=== PATIENT | female | born 1960 | race Caucasian/White ===

== ENCOUNTER 2019-11-03 23:30 | Emergency (ER) | payer BC, OTHER ==
[2019-11-04] MEDS ORDERED: Octyl 2-Cyanoacrylate 1 Tube TOP ONE (00:38)
[2019-11-04] MEDS ORDERED: Amoxicillin/Clavulanate K 875-125 MG Tab PO ONE (00:41)
--- NOTE | 2019-11-04 00:41 | EDM.PDOC ---
ED HPI GENERAL MEDICAL PROBLEM - General Chief Complaint: Bite:Animal, Insect Stated Complaint: RIGHT DOG BITE Time Seen by Provider: 11/04/19 00:36 Source of Information: Reports: Patient History Limitations: Reports: No Limitations - History of Present Illness INITIAL COMMENTS - FREE TEXT/NARRATIVE: 58-year-old female presents the emergency room after being bit by her dog was bitten in the face by her dog Duration: Hour(s): Location: Reports: Face Quality: Reports: Ache Severity: Mild Improves with: Reports: None right face Pain Score (Numeric/FACES): 7 - Related Data Allergies Allergy/AdvReac Type Severity Reaction Status Date / Time No Known Allergies Allergy Verified 11/03/19 23:49 Home Meds: Home Meds ALPRAZolam [Alprazolam] 0.5 mg PO DAILY 11/03/19 [History] busPIRone [Buspar] 10 mg PO DAILY 11/03/19 [History] Past Medical History Respiratory History: Reports: COPD Psychiatric History: Reports: Anxiety - Past Surgical History Female Surgical History: Reports: Hysterectomy Social & Family History - Family History Family Medical History: Noncontributory - Tobacco Use Smoking Status *Q: Current Every Day Smoker Years of Tobacco use: 35 Packs/Tins Daily: 1 - Recreational Drug Use Recreational Drug Use: No ED ROS GENERAL - Review of Systems Review Of Systems: Comprehensive ROS is negative, except as noted in HPI. Constitutional: Reports: No Symptoms HEENT: Reports: No Symptoms Respiratory: Reports: No Symptoms Cardiovascular: Reports: No Symptoms Endocrine: Reports: No Symptoms GI/Abdominal: Reports: No Symptoms : Reports: No Symptoms Musculoskeletal: Reports: No Symptoms Skin: Reports: No Symptoms (He has a bite along the right lower lid.) Neurological: Reports: No Symptoms Psychiatric: Reports: No Symptoms ED EXAM, ANIMAL BITE - Physical Exam Exam: See Below Exam Limited By: No Limitations General Appearance: Alert, WD/WN, No Apparent Distress Ears: Normal External Exam, Normal Canal, Normal TMs Nose: Normal Inspection Throat/Mouth: Normal Inspection, Normal Lips Head: Atraumatic, Normocephalic Neck: Normal Inspection Respiratory/Chest: No Respiratory Distress, Lungs Clear Cardiovascular: Normal Peripheral Pulses Peripheral Pulses: 0: Carotid (L) GI/Abdominal: Normal Bowel Sounds, Soft (Female) Exam: Deferred Rectal (Female) Exam: Deferred Back Exam: Normal Inspection Extremities: Normal Inspection Neurological: Alert ED ANIMAL BITE PROCEDURES - Additional/Other Procedure(s) Other (Free Text) Procedure(s): Is a 2 cm laceration for her dog. This will be Dermabond it. Patient not want sutures at this time Course - Vital Signs Last Recorded V/S: Last Vital Signs Temp 96.5 F 11/03/19 23:35 Pulse 80 11/03/19 23:35 Resp 18 11/03/19 23:35 BP 129/64 11/03/19 23:35 Pulse Ox 97 11/03/19 23:35 Departure - Departure Time of Disposition: 00:40 Disposition: Home, Self-Care 01 Condition: Good Clinical Impression: Dog bite of face - Discharge Information Referrals: PCP,None [Primary Care Provider] - Sepsis Event Note - Evaluation Sepsis Screening Result: No Definite Risk - Focused Exam Vital Signs: Vital Signs Temp Pulse Resp BP Pulse Ox 11/03/19 23:35 96.5 F 80 18 129/64 97 Date Exam was Performed: 11/04/19 Time Exam was Performed: 00:36
== END 2019-11-04 00:53 | disposition home or self-care (01) ==
LOC: MW.ED 23:30
DX: S01.85XA Open bite of other part of head, initial encounter (principal); F41.9 Anxiety disorder, unspecified; F17.210 Nicotine dependence, cigarettes, uncomplicated; Z90.710 Acquired absence of both cervix and uterus; Z79.899 Other long term (current) drug therapy; W54.0XXA Bitten by dog, initial encounter
CPT/HCPCS: 12011; 99283; A9270

== ENCOUNTER 2020-06-29 18:03 | Observation (INO) | payer BC, OTHER ==
[2020-06-29] MEDS ORDERED: Sodium Chloride 0.9% 10 ML Syringe FLUSH PRN (18:11)
[2020-06-29] MEDS ORDERED: Aspirin 81 MG Tab.Chew PO ONE (18:11)
[2020-06-29] MEDS ORDERED: Sodium Chloride 0.9% 2.5 ML Syringe FLUSH PRN ×2 (18:11)
[2020-06-29] MEDS ORDERED: Sodium Chloride 0.9% 1,000 ML IV ONE (18:11)
[2020-06-29] MEDS ORDERED: Albuterol 8 GM Inhaler INH ONE ×3 (18:12→20:35)
[2020-06-29] MEDS ORDERED: Dexamethasone 10 MG/ML SDV IVPUSH ONE (18:12)
--- NOTE | 2020-06-29 18:16 | EDM.PDOC ---
<Dante Martínez - Last Filed: 06/29/20 22:06> ED HPI GENERAL MEDICAL PROBLEM - General Chief Complaint: Respiratory Problem Stated Complaint: EMS ARRIVAL Time Seen by Provider: 06/29/20 18:10 - History of Present Illness INITIAL COMMENTS - FREE TEXT/NARRATIVE: This is a 59-year-old female with a history significant for COPD who presents ER today secondary to progressive shortness of breath that started on Monday. Patient reports that she was recently diagnosed with a urinary tract infection last week and was given a course of antibiotics which she has completed. Patient reports starting on or Monday she started having increasing shortness of breath where she was unable to perform her usual house duties. Patient reports that this evening her shortness of breath got significantly worse so she came to the ED. Patient reports that she uses an albuterol MDI at home for her COPD but has never required home oxygen or nebulizer therapies. Patient reports no history of hypertension, diabetes, liver, kidney problems in the past. Patient denies any fever. Patient reports that she has had a nonproductive cough which is not new for her and she attributes it to her COPD. Patient denies any chest pain, calf tenderness, lower extremity edema, history of PE or DVT. Patient denies any history of CHF, coronary disease, irregular heartbeats in the past. Patient denies any fevers, shakes, chills, sore throat. Patient reports mild headache. Constitutional: Patient is oriented to person, place, and time. Appears well- developed and well-nourished. No distress. HEENT: Moist mucous membranes Head: Normocephalic and atraumatic Eyes: Right eye exhibits no discharge. Left eye exhibits no discharge. No scleral icterus Neck: Normal range of motion. No tracheal deviation present. Cardiovascular: Normal rate and regular rhythm. Pulmonary: Effort normal, no respiratory distress mild expiratory wheezing improved after albuterol MDI.. Abdominal: No distention Musculoskeletal: Normal range of motion Neurologic: Alert and oriented to person, place and time. Skin: [place], warm and dry. Psychiatric: Normal mood and affect. Behavior is normal. Judgment and thought content normal. Nursing note and vital signs have been reviewed Assessment and plan: This is a 59-year-old female who presents ER today secondary to shortness of breath. Patient does have a history of COPD but is not oxygen dependent at home. Patient's pulse ox on arrival here to the ER was 83% on room air however on 3 L her pulse ox is 92 to 93% and feels much improved. Patient's labs are significant for COVID test negative x2. Patient's chest x-ray was concerning for increased bilateral interstitial markings concerning for possible atypical pneumonia versus pulmonary edema. Patient's BNP was 14 which makes pulmonary edema secondary to congestive heart failure less likely. Patient's chest x-ray also did not reveal an enlarged heart. Patient's d-dimer was elevated so a CTA was obtained which did not reveal any evidence of pulmonary embolism or discrete infiltrate. In the ED, the patient was given Decadron, albuterol MDIs, Rocephin, Zithromax to treat for pneumonia given her elevated WBC count and the abnormal chest x- ray. Patient does feel improved on her O2. Given patient's O2 requirement and her history of COPD, I feel patient will need to be admitted to the hospital for further management of her hypoxia and her COPD exacerbation with possible atypical pneumonia. Case was discussed with Dr. Arias who agrees with observation level of care with telemetry. My critical care note: The high probability of sudden, clinically significant deterioration in the patient's condition required the highest level of my preparedness to intervene urgently. The services I provided to this patient were to treat and/or prevent clinically significant deterioration. Services included the following: chart data review, reviewing nursing notes and/or old charts, documentation time, business management consultant collaboration regarding findings and treatment options, medication orders and management, direct patient care, vital sign assessments and ordering, interpreting and reviewing diagnostic studies/lab tests. Aggregate critical care time includes only time during which I was engaged inwork directly related to the patient's care, as described above, whether at the bedside or elsewhere in the Emergency Department. It did not include time spent performing other reported procedures or the services of residents, students, nurses or physician assistants. Patient with hypoxia upon presentation to the ED Critical Care Time: 35 minutes generalized Pain Score (Numeric/FACES): 2 - Related Data Allergies Allergy/AdvReac Type Severity Reaction Status Date / Time No Known Allergies Allergy Verified 06/29/20 23:04 Home Meds: Home Meds ALPRAZolam [Alprazolam] 0.5 mg PO DAILY 11/03/19 [History] busPIRone [Buspar] 10 mg PO DAILY 11/03/19 [History] Amoxicillin/Clavulanate K [Augmentin 875-125 MG] 1 tab PO Q12HR 5 Days #10 tablet 11/04/19 [Rx] Budesonide/Formoterol [Symbicort 160-4.5 MCG] 2 puff INH BID 06/29/20 [History] Departure - Departure Time of Disposition: 22:12 Disposition: Admitted As Inpatient 65 Condition: Fair Clinical Impression: Pneumonia - Discharge Information <Delmar Sal - Last Filed: 06/30/20 18:30> ED HPI GENERAL MEDICAL PROBLEM - History of Present Illness INITIAL COMMENTS - FREE TEXT/NARRATIVE: History of present illness: Patient presents with shortness of breath patient recently had trouble with a bladder infection was started on some antibiotic but she developed shortness of breath for the past 2 days that is been worsening this afternoon she denies any fever chills or cough she is not had any chest pain no leg pain or leg swelling she does have a history of COPD. Nothing seems to make her breathing better. Review of systems: As per history of present illness and below otherwise all systems reviewed and negative. Past medical history: As per history of present illness and as reviewed below otherwise noncontributory. Surgical history: As per history of present illness and as reviewed below otherwise noncontributory. Social history: No reported history of drug or alcohol abuse. Family history: As per history of present illness and as reviewed below otherwise noncontributory. Physical exam: HEENT: Atraumatic, normocephalic, pupils reactive, negative for conjunctival pal rolly or scleral icterus, mucous membranes moist, throat clear, neck supple, nontender, trachea midline. Lungs: Clear to auscultation, breath sounds equal bilaterally, chest nontender. Mild respiratory distress and tachypnea Heart: S1S2, regular, negative for clicks, rubs, or JVD. Abdomen: Soft, nondistended, nontender. Negative for masses or hepatosplenomegaly. Negative for costovertebral tenderness. Pelvis: Stable nontender. Genitourinary: Deferred. Rectal: Deferred. Extremities: Atraumatic, negative for cords or calf pain. Neurovascular unremarkable. Neuro: Awake, alert, oriented. Cranial nerves II through XII unremarkable. Cerebellum unremarkable. Motor and sensory unremarkable throughout. Exam nonfocal. Diagnostics: [] Therapeutics: [] Impression: COPD exacerbation versus pneumonia. [] Plan: Cardiac work-up chest x-ray she will get some albuterol and Decadron in the ED and be reassessed. [] Definitive disposition and diagnosis as appropriate pending reevaluation and review of above. Past Medical History Respiratory History: Reports: COPD Psychiatric History: Reports: Anxiety - Past Surgical History Female Surgical History: Reports: Hysterectomy Social & Family History - Family History Family Medical History: Noncontributory ED ROS GENERAL - Review of Systems Review Of Systems: See Below ED EXAM, GENERAL - Physical Exam Exam: See Below EKG INTERPRETATION EKG Interpretation Comments: EKG is normal sinus rhythm rate of 90 bpm normal axis nonspecific ST-T changes no paramjit ischemia read and interpreted by me Course - Vital Signs Last Recorded V/S: Last Vital Signs Temp 36.5 C 06/30/20 16:00 Pulse 72 06/30/20 16:00 Resp 20 06/30/20 16:00 BP 107/56 L 06/30/20 16:00 Pulse Ox 95 06/30/20 16:00 - Orders/Labs/Meds Orders: Active Orders 24 hr Category Date Time Status RT Post Treatment Assessment [RC] Click to Edit Care 06/29/20 20:35 Active RT Pre-Treatment Assessment [RC] Click to Edit Care 06/29/20 20:35 Active CULTURE BLOOD [BC] Stat Lab 06/29/20 18:10 Received CULTURE BLOOD [BC] Stat Lab 06/29/20 18:12 Received Sodium Chloride 0.9% [Saline Flush] Med 06/29/20 18:11 Active 10 ml FLUSH ASDIRECTED PRN Sodium Chloride 0.9% [Saline Flush] Med 06/29/20 18:11 Active 2.5 ml FLUSH ASDIRECTED PRN Sodium Chloride 0.9% [Saline Flush] Med 06/29/20 18:11 Active 2.5 ml FLUSH ASDIRECTED PRN Blood Culture x2 Reflex Set [OM.PC] Stat Oth 06/29/20 19:58 Ordered Isolation [COMM] Routine Oth 06/29/20 19:58 Active Saline Lock Insert [OM.PC] Stat Oth 06/29/20 18:11 Ordered Medication Orders Acetaminophen (Tylenol Extra Strength) 500 mg PO Q6H PRN PRN Reason: Pain (mild 1-3) Last Admin: 06/30/20 09:47 Dose: 500 mg Documented by: Admin: 06/29/20 23:52 Dose: 500 mg Documented by: JEFFREY Albuterol/Ipratropium (Duoneb 3.0-0.5 Mg/3 Ml) 3 ml NEB Q4HRRT PRN PRN Reason: Dyspnea Alprazolam (Xanax) 0.5 mg PO DAILY [facility] Last Admin: 06/30/20 08:56 Dose: 0.5 mg Documented by: LANCE Azithromycin (Zithromax) 500 mg PO BEDTIME [facility] Buspirone HCl (Buspar) 10 mg PO DAILY [facility] Last Admin: 06/30/20 08:56 Dose: 10 mg Documented by: LANCE Ceftriaxone Sodium/Dextrose 1 (gm/ Premix) 50 mls @ 100 mls/hr IV Q24H [facility] Last Admin: 06/30/20 09:03 Dose: 100 mls/hr Documented by: LANCE Methylprednisolone Sodium Succinate (Solu-Medrol) 40 mg IVPUSH Q12H [facility] Last Admin: 06/30/20 08:54 Dose: 40 mg Documented by: LANCE Morphine Sulfate (Morphine) 1 mg IVPUSH Q4H PRN PRN Reason: Pain (severe 7-10) Stop: 06/30/20 23:12 Last Admin: 06/30/20 03:14 Dose: 1 mg Documented by: JEFFREY Nicotine (Habitrol) 21 mg TRDERM DAILY [facility] Last Admin: 06/30/20 08:55 Dose: 21 mg Documented by: Admin: 06/29/20 23:52 Dose: 21 mg Documented by: JEFFREY Ondansetron HCl (Zofran) 4 mg IVPUSH Q4H PRN PRN Reason: Nausea/Vomiting Budesonide/Formoterol 160-4.5 Mcg/Puff 6 Gm Inhaler 0 each INH BID [facility] Last Admin: 06/30/20 10:44 Dose: Not Given Documented by: LANCE Sodium Chloride (Saline Flush) 10 ml FLUSH ASDIRECTED PRN PRN Reason: Keep Vein Open Last Admin: 06/29/20 18:29 Dose: 10 ml Documented by: EUNICE Sodium Chloride (Saline Flush) 2.5 ml FLUSH ASDIRECTED PRN PRN Reason: Keep Vein Open Last Admin: 06/29/20 18:28 Dose: 2.5 ml Documented by: [id number] Sodium Chloride (Saline Flush) 2.5 ml FLUSH ASDIRECTED PRN PRN Reason: Keep Vein Open Last Admin: 06/29/20 18:29 Dose: 2.5 ml Documented by: [id number] Labs: Laboratory Tests 06/29/20 06/29/20 06/29/20 Range/Units 18:10 18:10 18:10 WBC 15.61 H (4.0-11.0) K/uL RBC 4.54 (4.30-5.90) M/uL Hgb 14.7 (12.0-16.0) g/dL Hct 43.4 (36.0-46.0) % MCV 95.6 (80.0-98.0) fL MCH 32.4 H (27.0-32.0) pg MCHC 33.9 (31.0-37.0) g/dL RDW Std Deviation 47.4 (28.0-62.0) fl RDW Coeff of Malik 13 (11.0-15.0) % Plt Count 258 (150-400) K/uL MPV 9.40 (7.40-12.00) fL Neut % (Auto) 87.9 H (48.0-80.0) % Lymph % (Auto) 4.3 L (16.0-40.0) % [place] % (Auto) 3.5 (0.0-15.0) % Eos % (Auto) 4.2 (0.0-7.0) % Baso % (Auto) 0.1 (0.0-1.5) % Neut # (Auto) 13.7 H (1.4-5.7) K/uL Lymph # (Auto) 0.7 (0.6-2.4) K/uL [place] # (Auto) 0.6 (0.0-0.8) K/uL Eos # (Auto) 0.7 (0.0-0.7) K/uL Baso # (Auto) 0.0 (0.0-0.1) K/uL Nucleated RBC % 0.0 /100WBC Nucleated RBCs # 0 K/uL D-Dimer, Quantitative (0.0-0.50) mg/L FEU Lactate (0.20-2.00) mmol/L Sodium 140 (136-145) mmol/L Potassium 3.6 (3.5-5.1) mmol/L Chloride 103 (98-107) mmol/L Carbon Dioxide 23.9 (21.0-32.0) mmol/L BUN 14 (7.0-18.0) mg/dL Creatinine 1.1 H (0.6-1.0) mg/dL Est Cr Clr Drug Dosing 46.96 mL/min Estimated GFR (MDRD) 50.7 ml/min Glucose 102 (74-106) mg/dL Calcium 8.8 (8.5-10.1) mg/dL Total Bilirubin 0.9 (0.2-1.0) mg/dL AST 12 L (15-37) IU/L ALT 19 (14-63) IU/L Alkaline Phosphatase 60 (46-116) U/L Troponin I < 0.050 (0.000-0.056) ng/mL B-Natriuretic Peptide 14 (<100) PG/ML Total Protein 6.9 (6.4-8.2) g/dL Albumin 3.7 (3.4-5.0) g/dL Globulin 3.2 (2.6-4.0) g/dL Albumin/Globulin Ratio 1.2 (0.9-1.6) Urine Color Urine Appearance Urine pH (5.0-8.0) Ur Specific [place] (1.001-1.035) Urine Protein (NEGATIVE) mg/dL Urine Glucose (UA) (NEGATIVE) mg/dL Urine Ketones (NEGATIVE) mg/dL Urine Occult Blood (NEGATIVE) Urine Nitrite (NEGATIVE) Urine Bilirubin (NEGATIVE) Urine Urobilinogen (<2.0) EU/dL Ur Leukocyte Esterase (NEGATIVE) Urine RBC (0-2/HPF) Urine WBC (0-5/HPF) Ur Epithelial Cells (NONE-FEW) Urine Bacteria (NEGATIVE) Urine Mucus (NONE-MOD) COVID-19 ([facility]) (NEGATIVE) SARS Virus RNA (PCR) (NEGATIVE) 06/29/20 06/29/20 06/29/20 Range/Units 18:10 18:10 18:40 WBC (4.0-11.0) K/uL RBC (4.30-5.90) M/uL Hgb (12.0-16.0) g/dL Hct (36.0-46.0) % MCV (80.0-98.0) fL MCH (27.0-32.0) pg MCHC (31.0-37.0) g/dL RDW Std Deviation (28.0-62.0) fl RDW Coeff of Malik (11.0-15.0) % Plt Count (150-400) K/uL MPV (7.40-12.00) fL Neut % (Auto) (48.0-80.0) % Lymph % (Auto) (16.0-40.0) % [place] % (Auto) (0.0-15.0) % Eos % (Auto) (0.0-7.0) % Baso % (Auto) (0.0-1.5) % Neut # (Auto) (1.4-5.7) K/uL Lymph # (Auto) (0.6-2.4) K/uL [place] # (Auto) (0.0-0.8) K/uL Eos # (Auto) (0.0-0.7) K/uL Baso # (Auto) (0.0-0.1) K/uL Nucleated RBC % /100WBC Nucleated RBCs # K/uL D-Dimer, Quantitative 1.11 H (0.0-0.50) mg/L FEU Lactate 1.1 (0.20-2.00) mmol/L Sodium (136-145) mmol/L Potassium (3.5-5.1) mmol/L Chloride (98-107) mmol/L Carbon Dioxide (21.0-32.0) mmol/L BUN (7.0-18.0) mg/dL Creatinine (0.6-1.0) mg/dL Est Cr Clr Drug Dosing mL/min Estimated GFR (MDRD) ml/min Glucose (74-106) mg/dL Calcium (8.5-10.1) mg/dL Total Bilirubin (0.2-1.0) mg/dL AST (15-37) IU/L ALT (14-63) IU/L Alkaline Phosphatase (46-116) U/L Troponin I (0.000-0.056) ng/mL B-Natriuretic Peptide (<100) PG/ML Total Protein (6.4-8.2) g/dL Albumin (3.4-5.0) g/dL Globulin (2.6-4.0) g/dL Albumin/Globulin Ratio (0.9-1.6) Urine Color Urine Appearance Urine pH (5.0-8.0) Ur Specific [place] (1.001-1.035) Urine Protein (NEGATIVE) mg/dL Urine Glucose (UA) (NEGATIVE) mg/dL Urine Ketones (NEGATIVE) mg/dL Urine Occult Blood (NEGATIVE) Urine Nitrite (NEGATIVE) Urine Bilirubin (NEGATIVE) Urine Urobilinogen (<2.0) EU/dL Ur Leukocyte Esterase (NEGATIVE) Urine RBC (0-2/HPF) Urine WBC (0-5/HPF) Ur Epithelial Cells (NONE-FEW) Urine Bacteria (NEGATIVE) Urine Mucus (NONE-MOD) COVID-19 ([facility]) NEGATIVE (NEGATIVE) SARS Virus RNA (PCR) (NEGATIVE) 06/29/20 06/29/20 Range/Units 19:11 20:30 WBC (4.0-11.0) K/uL RBC (4.30-5.90) M/uL Hgb (12.0-16.0) g/dL Hct (36.0-46.0) % MCV (80.0-98.0) fL MCH (27.0-32.0) pg MCHC (31.0-37.0) g/dL RDW Std Deviation (28.0-62.0) fl RDW Coeff of Malik (11.0-15.0) % Plt Count (150-400) K/uL MPV (7.40-12.00) fL Neut % (Auto) (48.0-80.0) % Lymph % (Auto) (16.0-40.0) % [place] % (Auto) (0.0-15.0) % Eos % (Auto) (0.0-7.0) % Baso % (Auto) (0.0-1.5) % Neut # (Auto) (1.4-5.7) K/uL Lymph # (Auto) (0.6-2.4) K/uL [place] # (Auto) (0.0-0.8) K/uL Eos # (Auto) (0.0-0.7) K/uL Baso # (Auto) (0.0-0.1) K/uL Nucleated RBC % /100WBC Nucleated RBCs # K/uL D-Dimer, Quantitative (0.0-0.50) mg/L FEU Lactate (0.20-2.00) mmol/L Sodium (136-145) mmol/L Potassium (3.5-5.1) mmol/L Chloride (98-107) mmol/L Carbon Dioxide (21.0-32.0) mmol/L BUN (7.0-18.0) mg/dL Creatinine (0.6-1.0) mg/dL Est Cr Clr Drug Dosing mL/min Estimated GFR (MDRD) ml/min Glucose (74-106) mg/dL Calcium (8.5-10.1) mg/dL Total Bilirubin (0.2-1.0) mg/dL AST (15-37) IU/L ALT (14-63) IU/L Alkaline Phosphatase (46-116) U/L Troponin I (0.000-0.056) ng/mL B-Natriuretic Peptide (<100) PG/ML Total Protein (6.4-8.2) g/dL Albumin (3.4-5.0) g/dL Globulin (2.6-4.0) g/dL Albumin/Globulin Ratio (0.9-1.6) Urine Color YELLOW Urine Appearance CLEAR Urine pH 5.0 (5.0-8.0) Ur Specific [place] 1.020 (1.001-1.035) Urine Protein NEGATIVE (NEGATIVE) mg/dL Urine Glucose (UA) NEGATIVE (NEGATIVE) mg/dL Urine Ketones >=80 (NEGATIVE) mg/dL Urine Occult Blood SMALL H (NEGATIVE) Urine Nitrite NEGATIVE (NEGATIVE) Urine Bilirubin NEGATIVE (NEGATIVE) Urine Urobilinogen 0.2 (<2.0) EU/dL Ur Leukocyte Esterase SMALL H (NEGATIVE) Urine RBC NONE SEEN (0-2/HPF) Urine WBC 1-3 (0-5/HPF) Ur Epithelial Cells FEW (NONE-FEW) Urine Bacteria FEW (NEGATIVE) Urine Mucus LIGHT (NONE-MOD) COVID-19 ([facility]) (NEGATIVE) SARS Virus RNA (PCR) NEGATIVE (NEGATIVE) Meds: Medications Generic Name Dose Route Start Last Admin Trade Name Freq PRN Reason Stop Dose Admin Acetaminophen 500 mg 06/29/20 23:43 06/30/20 09:47 Tylenol Extra Strength PO 500 mg Q6H PRN Administration Pain (mild 1-3) Albuterol/Ipratropium 3 ml 06/29/20 23:16 Duoneb 3.0-0.5 Mg/3 Ml NEB Q4HRRT PRN Dyspnea Alprazolam 0.5 mg 06/30/20 09:00 06/30/20 08:56 Xanax PO 0.5 mg DAILY SARAH Administration Azithromycin 500 mg 06/30/20 21:00 Zithromax PO BEDTIME SARAH Buspirone HCl 10 mg 06/30/20 09:00 06/30/20 08:56 Buspar PO 10 mg DAILY SARAH Administration Ceftriaxone Sodium/Dextrose 1 50 mls @ 100 mls/hr 06/30/20 09:00 06/30/20 09:03 gm/ Premix IV 100 mls/hr Q24H SARAH Administration Methylprednisolone Sodium Succinate 40 mg 06/30/20 08:00 06/30/20 08:54 Solu-Medrol IVPUSH 40 mg Q12H SARAH Administration Morphine Sulfate 1 mg 06/29/20 23:09 06/30/20 03:14 Morphine IVPUSH 06/30/20 23:12 1 mg Q4H PRN Administration Pain (severe 7-10) Nicotine 21 mg 06/29/20 23:15 06/30/20 08:55 Habitrol TRDERM 21 mg DAILY SARAH Administration Ondansetron HCl 4 mg 06/29/20 23:09 Zofran IVPUSH Q4H PRN Nausea/Vomiting Budesonide/ 0 each 06/30/20 09:00 06/30/20 10:44 Formoterol 160-4.5 INH Not Given Mcg/Puff 6 Gm BID SARAH Inhaler Sodium Chloride 10 ml 06/29/20 18:11 06/29/20 18:29 Saline Flush FLUSH 10 ml ASDIRECTED PRN Administration Keep Vein Open Sodium Chloride 2.5 ml 06/29/20 18:11 06/29/20 18:28 Saline Flush FLUSH 2.5 ml ASDIRECTED PRN Administration Keep Vein Open Sodium Chloride 2.5 ml 06/29/20 18:11 06/29/20 18:29 Saline Flush FLUSH 2.5 ml ASDIRECTED PRN Administration Keep Vein Open Discontinued Medications Generic Name Dose Route Start Last Admin Trade Name Albert PRN Reason Stop Dose Admin Albuterol 4 gm 06/29/20 18:12 06/29/20 18:37 Ventolin Hfa INH 06/29/20 18:13 Not Given ONETIME ONE Albuterol 18 gm 06/29/20 18:31 06/29/20 18:36 Ventolin Hfa INH 06/29/20 18:32 18 g ONETIME ONE Administration Albuterol Confirm 06/29/20 18:35 06/29/20 18:39 Ventolin Hfa Administered 06/29/20 18:36 Not Given Dose 18 gm .ROUTE .STK-MED ONE Albuterol 2 gm 06/29/20 20:35 06/29/20 20:39 Ventolin Hfa INH 06/29/20 20:36 2 inh ONETIME ONE Administration Albuterol/Ipratropium 3 ml 06/29/20 19:57 06/29/20 20:39 Duoneb 3.0-0.5 Mg/3 Ml NEB 06/29/20 19:58 Not Given ONETIME ONE Aspirin 324 mg 06/29/20 18:11 06/29/20 18:28 Aspirin PO 06/29/20 18:12 324 mg ONETIME ONE Administration Dexamethasone 10 mg 06/29/20 18:12 06/29/20 18:28 Dexamethasone IVPUSH 06/29/20 18:13 10 mg ONETIME ONE Administration Furosemide 20 mg 06/29/20 23:26 06/29/20 23:52 Lasix IVPUSH 06/29/20 23:27 20 mg ONETIME ONE Administration Furosemide 20 mg 06/30/20 10:09 06/30/20 11:02 Lasix IVPUSH 06/30/20 10:10 20 mg ONETIME ONE Administration Sodium Chloride 1,000 mls @ 999 mls/hr 06/29/20 18:11 06/29/20 18:28 Normal Saline IV 06/29/20 19:11 999 mls/hr BOLUS ONE Administration Ceftriaxone Sodium/Dextrose 1 50 mls @ 100 mls/hr 06/29/20 19:57 06/29/20 20:37 gm/ Premix IV 06/29/20 20:26 100 mls/hr ONETIME ONE Administration Azithromycin 500 mg/ Sodium 250 mls @ 250 mls/hr 06/29/20 20:15 06/29/20 21:14 Chloride IV 250 mls/hr ONETIME SARAH Administration Ceftriaxone Sodium 1 gm/ 50 mls @ 100 mls/hr 06/30/20 09:00 Sodium Chloride IV Q24H SARAH Iopamidol 50 ml 06/29/20 20:39 06/29/20 20:40 Isovue-370 (76%) IV 06/29/20 20:40 50 ml ONETIME STA Administration Departure - Discharge Information *PRESCRIPTION DRUG MONITORING PROGRAM REVIEWED*: Not Applicable *COPY OF PRESCRIPTION DRUG MONITORING REPORT IN PATIENT SOPHIA: Not Applicable - My Orders Last 24 Hours: My Active Orders 06/29/20 18:11 Sodium Chloride 0.9% [Saline Flush] 10 ml FLUSH ASDIRECTED PRN Sodium Chloride 0.9% [Saline Flush] 2.5 ml FLUSH ASDIRECTED PRN Sodium Chloride 0.9% [Saline Flush] 2.5 ml FLUSH ASDIRECTED PRN Saline Lock Insert [OM.PC] Stat - Assessment/Plan Last 24 Hours: My Active Orders 06/29/20 18:11 Sodium Chloride 0.9% [Saline Flush] 10 ml FLUSH ASDIRECTED PRN Sodium Chloride 0.9% [Saline Flush] 2.5 ml FLUSH ASDIRECTED PRN Sodium Chloride 0.9% [Saline Flush] 2.5 ml FLUSH ASDIRECTED PRN Saline Lock Insert [OM.PC] Stat
[2020-06-29] MEDS ORDERED: Albuterol HFA 18 Gm Inhaler ONE (18:35)
--- NOTE | 2020-06-29 18:45 | CR ---
Chest: Portable view of the chest was obtained. Comparison: Prior chest x-ray of 09/04/12. Heart size and mediastinum are normal. Danette B lines are noted. Central lung markings are slightly increased. Impression: 1. Findings suspicious for mild pulmonary vascular congestion with slight interstitial edema. Please correlate if patient has any symptoms of acute cardiac event as an etiology for cardiac decompensation as heart is not enlarged. 2. No acute parenchymal change is otherwise seen within the chest. Diagnostic code #3 This report was dictated in MDT
[2020-06-29 19:09] LABS: BLOOD UREA NITROGEN,BUN 14 mg/dL (7.0-18.0); CARBON DIOXIDE,CO2 23.9 mmol/L (21.0-32.0); CHLORIDE,CL 103 mmol/L (98-107); GLUCOSE RANDOM 102 mg/dL (74-106); POTASSIUM,K 3.6 mmol/L (3.5-5.1); SODIUM,NA 140 mmol/L (136-145)
[2020-06-29] MEDS ORDERED: Albuterol/Ipratropium 3.0-0.5 MG/3 ML Neb Soln NEB ONE (19:57)
[2020-06-29] MEDS ORDERED: cefTRIAXone 1 GM in Premix Bag 1 BAG IV ONE (19:57)
[2020-06-29] MEDS ORDERED: Azithromycin 500 MG in Sodium Chloride 0.9% 250 ML IV SCH (20:15)
[2020-06-29] MEDS ORDERED: Iopamidol 755 MG/ML 50 ML Bottle IV STA (20:39)
--- NOTE | 2020-06-29 21:21 | CT ---
INDICATION: Shortness of breath, hypoxia TECHNIQUE: CT chest pulmonary PE protocol acquired with 50 cc Isovue 370 IV contrast. COMPARISON: None FINDINGS: Cardiovascular structures: Normal vascular enhancement of the pulmonary arteries, no sign of pulmonary embolism. Heart size is normal. No sign of aneurysm in the thoracic aorta. Mediastinum and ysabel: 1.5 cm subcarinal adenopathy. 1.8 cm right hilar lymph. 1.3 cm left hilar lymph node. Lungs: Thickening of the interlobular septa. Faint, diffuse ground-glass opacities in lungs. Linear atelectasis or scarring in the right middle lobe. Pleura and pericardium: No effusions. Chest wall and axilla: No mass or adenopathy. Upper abdomen: Unremarkable. Bones: No significant findings. IMPRESSION: No pulmonary embolism or pneumonia. Thickening of the interlobular septa with faint ground-glass opacities in the lungs concerning for pulmonary edema. No effusion. Subcarinal and bilateral hilar adenopathy of unknown etiology. Please note that all CT scans at this facility use dose modulation, iterative reconstruction, and/or weight-based dosing when appropriate to reduce radiation dose to as low as reasonably achievable. Dictated by Kelly Colin MD @ Jun 29 2020 9:19PM Signed by Dr. Kelly Colin @ Jun 29 2020 9:19PM
[2020-06-29] MEDS ORDERED: Morphine 2 MG/ML SYRINGE IVPUSH PRN (23:09)
[2020-06-29] MEDS ORDERED: Ondansetron 4 MG/2 ML SDV IVPUSH PRN (23:09)
[2020-06-29] MEDS ORDERED: Albuterol/Ipratropium 3.0-0.5 MG/3 ML Neb Soln NEB PRN (23:16)
--- NOTE | 2020-06-29 23:18 | PCM.HP.2 ---
H&P History of Present Illness - General Date of Service: 06/29/20 Admit Problem/Dx: Admission Diagnosis/Problem Admission Diagnosis/Problem COPD with acute lower respiratory infection - History of Present Illness Initial Comments - Free Text/Narative: This is a 59-year-old female with a history significant for COPD who presents ER today secondary to progressive shortness of breath that started on Monday. Joanie ent reports starting on she started having increasing shortness of breath and was was unable to perform her ADLS. Today her symptoms got worse so she came to the ED. Patient reports that she uses an albuterol MDI at home for her COPD but has never required home oxygen or nebulizer therapies. Patient was recently treated for UTI with oral antibiotics. Patient reports no history of hypertension, diabetes, liver, kidney problems in the past. Patient denies any fever. Patient reports that she has had a nonproductive cough which is chronic in nature.Patient denies any chest pain, calf tenderness, lower extremity edema, history of PE or DVT. Patient denies any history of CHF, nadege nary disease, irregular heartbeats in the past. Patient denies any fevers, shakes, chills, sore throat. Patient's pulse ox on arrival was 83% on room air , started on 3 L which improved her pulse oxy to 93%. Patient's labs are significant for COVID test negative x2. Patient's chest x-ray was concerning for increased bilateral interstitial markings concerning for possible atypical pneumonia versus pulmonary edema. Patient's BNP was 14 which makes pulmonary edema secondary to congestive heart failure less likely. Patient's chest x-ray also did not reveal an enlarged heart. Patient's d-dimer was elevated so a CTA was obtained which did not reveal any evidence of pulmonary embolism or discrete infiltrate. In the ED, the patient was given Decadron, albuterol MDIs, Rocephin, Zithromax t o treat for pneumonia given her elevated WBC count and the abnormal chest x-ray. Patient does feel improved on her O2. Patient was admitted to the hospital for further management of her hypoxia and her COPD exacerbation with possible atypical pneumonia. generalized Pain Score (Numeric/FACES): 2 - Related Data Allergies/Adverse Reactions: Allergies Allergy/AdvReac Type Severity Reaction Status Date / Time No Known Allergies Allergy Verified 06/29/20 23:04 Home Medications: Home Meds ALPRAZolam [Alprazolam] 0.5 mg PO DAILY 11/03/19 [History] busPIRone [Buspar] 10 mg PO DAILY 11/03/19 [History] Amoxicillin/Clavulanate K [Augmentin 875-125 MG] 1 tab PO Q12HR 5 Days #10 tablet 11/04/19 [Rx] Budesonide/Formoterol [Symbicort 160-4.5 MCG] 2 puff INH BID 06/29/20 [History] Past Medical History Respiratory History: Reports: COPD Genitourinary History: Reports: UTI, Recurrent Psychiatric History: Reports: Anxiety Dermatologic History: Reports: Eczema - Past Surgical History Female Surgical History: Reports: Hysterectomy Social & Family History - Family History Family Medical History: Noncontributory - Tobacco Use Smoking Status *Q: Current Every Day Smoker Years of Tobacco use: 40 Packs/Tins Daily: 1 - Caffeine Use Caffeine Use: Reports: Coffee, Soda - Recreational Drug Use Recreational Drug Use: No H&P Review of Systems - Review of Systems: Review Of Systems: See Below General: Denies: Fever, Chills, Malaise, Weakness Pulmonary: Reports: Shortness of Breath, Cough. Denies: Wheezing, Pleuritic Chest Pain, Sputum, Hemoptysis Cardiovascular: Reports: Dyspnea on Exertion. Denies: Chest Pain, Palpitations, Orthopnea, Lightheadedness, Syncope Gastrointestinal: Denies: Abdominal Pain, Anorexia, Black Stool Genitourinary: Denies: Dysuria, Frequency Musculoskeletal: Denies: Neck Pain, Shoulder Pain, Arm Pain Skin: Denies: Cyanosis, Jaundice, Mottled, Pallor Psychiatric: Denies: Confusion, Depression, Mood Lability Neurological: Denies: Confusion, Dizziness, Headache Hematologic/Lymphatic: Denies: Anemia, Easy Bleeding, Easy Bruising Exam - Exam Exam: See Below - Vital Signs Vital Signs: Last Vital Signs Temp 36.2 C 06/29/20 22:54 Pulse 79 06/29/20 22:54 Resp 20 06/29/20 22:54 BP 120/69 06/29/20 22:54 Pulse Ox 95 06/29/20 22:54 Weight: 52.617 kg - Exam Quality Assessment: Supplemental Oxygen General: Alert, Oriented Neck: Supple Lungs: Decreased Breath Sounds, Rhonchi Cardiovascular: Regular Rate, Regular Rhythm, Normal S1, Normal S2 GI/Abdominal Exam: Normal Bowel Sounds, Soft, Non-Tender - Patient Data Lab Results Last 24 hrs: Laboratory Results - last 24 hr 06/29/20 06/29/20 06/29/20 Range/Units 18:10 18:10 18:10 WBC 15.61 H (4.0-11.0) K/uL RBC 4.54 (4.30-5.90) M/uL Hgb 14.7 (12.0-16.0) g/dL Hct 43.4 (36.0-46.0) % MCV 95.6 (80.0-98.0) fL MCH 32.4 H (27.0-32.0) pg MCHC 33.9 (31.0-37.0) g/dL RDW Std Deviation 47.4 (28.0-62.0) fl RDW Coeff of Malik 13 (11.0-15.0) % Plt Count 258 (150-400) K/uL MPV 9.40 (7.40-12.00) fL Neut % (Auto) 87.9 H (48.0-80.0) % Lymph % (Auto) 4.3 L (16.0-40.0) % [place] % (Auto) 3.5 (0.0-15.0) % Eos % (Auto) 4.2 (0.0-7.0) % Baso % (Auto) 0.1 (0.0-1.5) % Neut # (Auto) 13.7 H (1.4-5.7) K/uL Lymph # (Auto) 0.7 (0.6-2.4) K/uL [place] # (Auto) 0.6 (0.0-0.8) K/uL Eos # (Auto) 0.7 (0.0-0.7) K/uL Baso # (Auto) 0.0 (0.0-0.1) K/uL Nucleated RBC % 0.0 /100WBC Nucleated RBCs # 0 K/uL D-Dimer, Quantitative (0.0-0.50) mg/L FEU Lactate (0.20-2.00) mmol/L Sodium 140 (136-145) mmol/L Potassium 3.6 (3.5-5.1) mmol/L Chloride 103 (98-107) mmol/L Carbon Dioxide 23.9 (21.0-32.0) mmol/L BUN 14 (7.0-18.0) mg/dL Creatinine 1.1 H (0.6-1.0) mg/dL Est Cr Clr Drug Dosing 46.96 mL/min Estimated GFR (MDRD) 50.7 ml/min Glucose 102 (74-106) mg/dL Calcium 8.8 (8.5-10.1) mg/dL Total Bilirubin 0.9 (0.2-1.0) mg/dL AST 12 L (15-37) IU/L ALT 19 (14-63) IU/L Alkaline Phosphatase 60 (46-116) U/L Troponin I < 0.050 (0.000-0.056) ng/mL B-Natriuretic Peptide 14 (<100) PG/ML Total Protein 6.9 (6.4-8.2) g/dL Albumin 3.7 (3.4-5.0) g/dL Globulin 3.2 (2.6-4.0) g/dL Albumin/Globulin Ratio 1.2 (0.9-1.6) Urine Color Urine Appearance Urine pH (5.0-8.0) Ur Specific [place] (1.001-1.035) Urine Protein (NEGATIVE) mg/dL Urine Glucose (UA) (NEGATIVE) mg/dL Urine Ketones (NEGATIVE) mg/dL Urine Occult Blood (NEGATIVE) Urine Nitrite (NEGATIVE) Urine Bilirubin (NEGATIVE) Urine Urobilinogen (<2.0) EU/dL Ur Leukocyte Esterase (NEGATIVE) Urine RBC (0-2/HPF) Urine WBC (0-5/HPF) Ur Epithelial Cells (NONE-FEW) Urine Bacteria (NEGATIVE) Urine Mucus (NONE-MOD) COVID-19 ([facility]) (NEGATIVE) SARS Virus RNA (PCR) (NEGATIVE) 06/29/20 06/29/20 06/29/20 Range/Units 18:10 18:10 18:40 WBC (4.0-11.0) K/uL RBC (4.30-5.90) M/uL Hgb (12.0-16.0) g/dL Hct (36.0-46.0) % MCV (80.0-98.0) fL MCH (27.0-32.0) pg MCHC (31.0-37.0) g/dL RDW Std Deviation (28.0-62.0) fl RDW Coeff of Malik (11.0-15.0) % Plt Count (150-400) K/uL MPV (7.40-12.00) fL Neut % (Auto) (48.0-80.0) % Lymph % (Auto) (16.0-40.0) % [place] % (Auto) (0.0-15.0) % Eos % (Auto) (0.0-7.0) % Baso % (Auto) (0.0-1.5) % Neut # (Auto) (1.4-5.7) K/uL Lymph # (Auto) (0.6-2.4) K/uL [place] # (Auto) (0.0-0.8) K/uL Eos # (Auto) (0.0-0.7) K/uL Baso # (Auto) (0.0-0.1) K/uL Nucleated RBC % /100WBC Nucleated RBCs # K/uL D-Dimer, Quantitative 1.11 H (0.0-0.50) mg/L FEU Lactate 1.1 (0.20-2.00) mmol/L Sodium (136-145) mmol/L Potassium (3.5-5.1) mmol/L Chloride (98-107) mmol/L Carbon Dioxide (21.0-32.0) mmol/L BUN (7.0-18.0) mg/dL Creatinine (0.6-1.0) mg/dL Est Cr Clr Drug Dosing mL/min Estimated GFR (MDRD) ml/min Glucose (74-106) mg/dL Calcium (8.5-10.1) mg/dL Total Bilirubin (0.2-1.0) mg/dL AST (15-37) IU/L ALT (14-63) IU/L Alkaline Phosphatase (46-116) U/L Troponin I (0.000-0.056) ng/mL B-Natriuretic Peptide (<100) PG/ML Total Protein (6.4-8.2) g/dL Albumin (3.4-5.0) g/dL Globulin (2.6-4.0) g/dL Albumin/Globulin Ratio (0.9-1.6) Urine Color Urine Appearance Urine pH (5.0-8.0) Ur Specific [place] (1.001-1.035) Urine Protein (NEGATIVE) mg/dL Urine Glucose (UA) (NEGATIVE) mg/dL Urine Ketones (NEGATIVE) mg/dL Urine Occult Blood (NEGATIVE) Urine Nitrite (NEGATIVE) Urine Bilirubin (NEGATIVE) Urine Urobilinogen (<2.0) EU/dL Ur Leukocyte Esterase (NEGATIVE) Urine RBC (0-2/HPF) Urine WBC (0-5/HPF) Ur Epithelial Cells (NONE-FEW) Urine Bacteria (NEGATIVE) Urine Mucus (NONE-MOD) COVID-19 ([place]) NEGATIVE (NEGATIVE) SARS Virus RNA (PCR) (NEGATIVE) 06/29/20 06/29/20 Range/Units 19:11 20:30 WBC (4.0-11.0) K/uL RBC (4.30-5.90) M/uL Hgb (12.0-16.0) g/dL Hct (36.0-46.0) % MCV (80.0-98.0) fL MCH (27.0-32.0) pg MCHC (31.0-37.0) g/dL RDW Std Deviation (28.0-62.0) fl RDW Coeff of Malik (11.0-15.0) % Plt Count (150-400) K/uL MPV (7.40-12.00) fL Neut % (Auto) (48.0-80.0) % Lymph % (Auto) (16.0-40.0) % [place] % (Auto) (0.0-15.0) % Eos % (Auto) (0.0-7.0) % Baso % (Auto) (0.0-1.5) % Neut # (Auto) (1.4-5.7) K/uL Lymph # (Auto) (0.6-2.4) K/uL [place] # (Auto) (0.0-0.8) K/uL Eos # (Auto) (0.0-0.7) K/uL Baso # (Auto) (0.0-0.1) K/uL Nucleated RBC % /100WBC Nucleated RBCs # K/uL D-Dimer, Quantitative (0.0-0.50) mg/L FEU Lactate (0.20-2.00) mmol/L Sodium (136-145) mmol/L Potassium (3.5-5.1) mmol/L Chloride (98-107) mmol/L Carbon Dioxide (21.0-32.0) mmol/L BUN (7.0-18.0) mg/dL Creatinine (0.6-1.0) mg/dL Est Cr Clr Drug Dosing mL/min Estimated GFR (MDRD) ml/min Glucose (74-106) mg/dL Calcium (8.5-10.1) mg/dL Total Bilirubin (0.2-1.0) mg/dL AST (15-37) IU/L ALT (14-63) IU/L Alkaline Phosphatase (46-116) U/L Troponin I (0.000-0.056) ng/mL B-Natriuretic Peptide (<100) PG/ML Total Protein (6.4-8.2) g/dL Albumin (3.4-5.0) g/dL Globulin (2.6-4.0) g/dL Albumin/Globulin Ratio (0.9-1.6) Urine Color YELLOW Urine Appearance CLEAR Urine pH 5.0 (5.0-8.0) Ur Specific [place] 1.020 (1.001-1.035) Urine Protein NEGATIVE (NEGATIVE) mg/dL Urine Glucose (UA) NEGATIVE (NEGATIVE) mg/dL Urine Ketones >=80 (NEGATIVE) mg/dL Urine Occult Blood SMALL H (NEGATIVE) Urine Nitrite NEGATIVE (NEGATIVE) Urine Bilirubin NEGATIVE (NEGATIVE) Urine Urobilinogen 0.2 (<2.0) EU/dL Ur Leukocyte Esterase SMALL H (NEGATIVE) Urine RBC NONE SEEN (0-2/HPF) Urine WBC 1-3 (0-5/HPF) Ur Epithelial Cells FEW (NONE-FEW) Urine Bacteria FEW (NEGATIVE) Urine Mucus LIGHT (NONE-MOD) COVID-19 ([place]) (NEGATIVE) SARS Virus RNA (PCR) NEGATIVE (NEGATIVE) Result Diagrams: 06/29/20 18:10 06/29/20 18:10 Walter Results Last 24 hrs: Microbiology 06/29/20 20:30 Influenza Type A Antigen Screen - Final Nasopharyngeal Swab NEGATIVE INFLUENZA A VIRUS AG REFERENCE RANGE: NEGATIVE Influenza Type B Antigen Screen - Final NEGATIVE INFLUENZA B VIRUS AG REFERENCE RANGE: NEGATIVE Sepsis Event Note - Evaluation Sepsis Screening Result: No Definite Risk - Focused Exam Vital Signs: Vital Signs Temp Pulse Resp BP Pulse Ox Pulse Ox Pulse Ox 06/29/20 22:54 36.2 C 79 20 120/69 95 06/29/20 21:10 36.6 C 78 20 105/61 98 06/29/20 19:15 36.6 C 81 20 115/56 L 98 06/29/20 18:49 90 L 06/29/20 18:11 84 L 06/29/20 18:03 36.3 C 88 24 H 119/63 84 L - Problem List (1) Acute hypoxemic respiratory failure SNOMED Code(s): 971365824 ICD Code: J96.01 - ACUTE RESPIRATORY FAILURE WITH HYPOXIA Status: Acute Current Visit: Yes Problem List Initiated/Reviewed/Updated: Yes Orders Last 24hrs: Active Orders 24 hr Category Date Time Status Patient Status [ADT] Routine ADT 06/29/20 21:59 Active Ambulate [RC] ASDIRECTED Care 06/29/20 23:09 Ordered Antiembolic Devices [RC] PER UNIT ROUTINE Care 06/29/20 23:11 Ordered Oxygen Therapy [RC] ASDIRECTED Care 06/29/20 18:11 Active Oxygen Therapy [RC] PRN Care 06/29/20 23:10 Ordered Pulse Oximetry [RC] CONTINUOUS Care 06/29/20 23:11 Ordered RT Aerosol Therapy [RC] ASDIRECTED Care 06/29/20 23:16 Ordered RT Post Treatment Assessment [RC] Click to Edit Care 06/29/20 18:32 Active RT Post Treatment Assessment [RC] Click to Edit Care 06/29/20 20:35 Active RT Pre-Treatment Assessment [RC] Click to Edit Care 06/29/20 18:32 Active RT Pre-Treatment Assessment [RC] Click to Edit Care 06/29/20 20:35 Active VTE/DVT Education [RC] PER UNIT ROUTINE Care 06/29/20 23:10 Ordered Vital Signs [RC] Q4H Care 06/29/20 23:10 Ordered Heart Healthy Diet [DIET] Diet 06/29/20 Breakfast Ordered CULTURE BLOOD [BC] Stat Lab 06/29/20 18:10 Received CULTURE BLOOD [BC] Stat Lab 06/29/20 18:12 Received Albuterol/Ipratropium [DuoNeb 3.0-0.5 MG/3 ML] Med 06/29/20 23:16 Ordered 3 ml NEB Q4HRRT PRN Azithromycin [Zithromax] 500 mg Med 06/29/20 20:15 Active Sodium Chloride 0.9% [Normal Saline (AdvBag)] 250 ml IV ONETIME Morphine Med 06/29/20 23:09 Ordered 1 mg IVPUSH Q4H PRN Nicotine [Habitrol] Med 06/29/20 23:15 Ordered 21 mg TRDERM DAILY Ondansetron [Zofran] Med 06/29/20 23:09 Ordered 4 mg IVPUSH Q4H PRN Sodium Chloride 0.9% [Saline Flush] Med 06/29/20 18:11 Active 10 ml FLUSH ASDIRECTED PRN Sodium Chloride 0.9% [Saline Flush] Med 06/29/20 18:11 Active 2.5 ml FLUSH ASDIRECTED PRN Sodium Chloride 0.9% [Saline Flush] Med 06/29/20 18:11 Active 2.5 ml FLUSH ASDIRECTED PRN methylPREDNISolone Sod Succ [Solu-MEDROL] Med 06/30/20 08:00 Ordered 40 mg IVPUSH Q12H Blood Culture x2 Reflex Set [OM.PC] Stat Oth 06/29/20 19:58 Ordered Isolation [COMM] Routine Oth 06/29/20 19:58 Active Saline Lock Insert [OM.PC] Stat Oth 06/29/20 18:11 Ordered Sequential Compression Device [OM.PC] Per Unit Routine Oth 06/29/20 23:11 Ordered Medication Orders Albuterol/Ipratropium (Duoneb 3.0-0.5 Mg/3 Ml) 3 ml NEB Q4HRRT PRN PRN Reason: Dyspnea Azithromycin 500 mg/ Sodium (Chloride) 250 mls @ 250 mls/hr IV ONETIME SARAH Last Admin: 06/29/20 21:14 Dose: 250 mls/hr Documented by: JORDY Methylprednisolone Sodium Succinate (Solu-Medrol) 40 mg IVPUSH Q12H SARAH Morphine Sulfate (Morphine) 1 mg IVPUSH Q4H PRN PRN Reason: Pain (severe 7-10) Stop: 06/30/20 23:12 Nicotine (Habitrol) 21 mg TRDERM DAILY SARAH Ondansetron HCl (Zofran) 4 mg IVPUSH Q4H PRN PRN Reason: Nausea/Vomiting Sodium Chloride (Saline Flush) 10 ml FLUSH ASDIRECTED PRN PRN Reason: Keep Vein Open Last Admin: 06/29/20 18:29 Dose: 10 ml Documented by: EUNICE Sodium Chloride (Saline Flush) 2.5 ml FLUSH ASDIRECTED PRN PRN Reason: Keep Vein Open Last Admin: 06/29/20 18:28 Dose: 2.5 ml Documented by: EUNICE Sodium Chloride (Saline Flush) 2.5 ml FLUSH ASDIRECTED PRN PRN Reason: Keep Vein Open Last Admin: 06/29/20 18:29 Dose: 2.5 ml Documented by: EUNICE Assessment/Plan Comment:: 59 y/o F admitted for Acute hypoxic respiratory failure due to CAP vs COPD Leucocytosis noted Received IV antibiotics in ER, cont Antibiotics f/u on cultures start IV solumedrol 40mg Q12 DuoNeb as needs for SOB Oxygenation via nasal cannula Trial od lasix 20 mg once SCD for dvt ppx Monitor and replete electrolytes as needed Tylenol for pain Nicotine patch
[2020-06-29] MEDS ORDERED: Furosemide 20 MG/2 ML VIAL IVPUSH ONE (23:26)
[2020-06-29] MEDS: Acetaminophen 500 MG Tab PO PRN (23:52)
[2020-06-29] MEDS: Nicotine 21 MG/24 Hr Patch TRDERM SCH (23:52)
[2020-06-30 06:24] LABS: CARBON DIOXIDE,CO2 23.3 mmol/L (21.0-32.0); POTASSIUM,K 3.6 mmol/L (3.5-5.1)
[2020-06-30] MEDS: methylPREDNISolone Sodium Succinate 40 MG/1 ML SDV IVPUSH SCH ×2 (08:54→21:03)
[2020-06-30] MEDS: Nicotine 21 MG/24 Hr Patch TRDERM SCH (08:55)
[2020-06-30] MEDS: ALPRAZolam 0.5 MG Tab PO SCH (08:56)
[2020-06-30] MEDS: busPIRone 5 MG Tab PO SCH (08:56)
[2020-06-30] MEDS ORDERED: cefTRIAXone 1 GM in Sodium Chloride 0.9% 50 ML IV SCH (09:00)
[2020-06-30] MEDS: cefTRIAXone 1 GM in Premix Bag 1 BAG IV SCH (09:03)
[2020-06-30] MEDS: Acetaminophen 500 MG Tab PO PRN (09:47)
[2020-06-30] MEDS ORDERED: Furosemide 20 MG/2 ML VIAL IVPUSH ONE (10:09)
[2020-06-30 10:28] LABS: HEMOGLOBIN A1C 5.4 % (4.5-6.2)
[2020-06-30] MEDS: Budesonide/Formoterol 160-4.5 MCG/Puff 6 GM Inhaler INH SCH ×2 (10:44→20:14)
--- NOTE | 2020-06-30 12:13 | PCM.PN ---
<Carl Merrill - Last Filed: 06/30/20 12:13> - General Info Date of Service: 06/30/20 Subjective Update: Bedside: mentions feeling the SOB is slightly improving; mentions the cough feels "looser" but has yet to have any significant productive sputum Functional Status: Reports: Pain Controlled - Review of Systems General: Reports: No Symptoms HEENT: Reports: No Symptoms Pulmonary: Reports: Cough. Denies: Shortness of Breath, Sputum, Wheezing Cardiovascular: Reports: No Symptoms Gastrointestinal: Reports: No Symptoms Genitourinary: Reports: No Symptoms Musculoskeletal: Reports: No Symptoms Skin: Reports: No Symptoms Neurological: Denies: Dizziness, Headache Psychiatric: Reports: No Symptoms - Patient Data Vitals - Most Recent: Last Vital Signs Temp 98.1 F 06/30/20 11:46 Pulse 80 06/30/20 11:46 Resp 20 06/30/20 11:46 BP 92/50 L 06/30/20 11:46 Pulse Ox 90 L 06/30/20 11:46 Weight - Most Recent: 52.617 kg I&O - Last 24 Hours: Intake & Output 06/29/20 06/30/20 06/30/20 22:59 06:59 14:59 Intake Total 100 Output Total 1100 Balance -1000 Lab Results Last 24 Hours: Laboratory Results - last 24 hr 06/29/20 06/29/20 06/29/20 Range/Units 18:10 18:10 18:10 WBC 15.61 H (4.0-11.0) K/uL RBC 4.54 (4.30-5.90) M/uL Hgb 14.7 (12.0-16.0) g/dL Hct 43.4 (36.0-46.0) % MCV 95.6 (80.0-98.0) fL MCH 32.4 H (27.0-32.0) pg MCHC 33.9 (31.0-37.0) g/dL RDW Std Deviation 47.4 (28.0-62.0) fl RDW Coeff of Malik 13 (11.0-15.0) % Plt Count 258 (150-400) K/uL MPV 9.40 (7.40-12.00) fL Neut % (Auto) 87.9 H (48.0-80.0) % Lymph % (Auto) 4.3 L (16.0-40.0) % [place] % (Auto) 3.5 (0.0-15.0) % Eos % (Auto) 4.2 (0.0-7.0) % Baso % (Auto) 0.1 (0.0-1.5) % Neut # (Auto) 13.7 H (1.4-5.7) K/uL Lymph # (Auto) 0.7 (0.6-2.4) K/uL [place] # (Auto) 0.6 (0.0-0.8) K/uL Eos # (Auto) 0.7 (0.0-0.7) K/uL Baso # (Auto) 0.0 (0.0-0.1) K/uL Nucleated RBC % 0.0 /100WBC Nucleated RBCs # 0 K/uL D-Dimer, Quantitative (0.0-0.50) mg/L FEU Lactate (0.20-2.00) mmol/L Sodium 140 (136-145) mmol/L Potassium 3.6 (3.5-5.1) mmol/L Chloride 103 (98-107) mmol/L Carbon Dioxide 23.9 (21.0-32.0) mmol/L BUN 14 (7.0-18.0) mg/dL Creatinine 1.1 H (0.6-1.0) mg/dL Est Cr Clr Drug Dosing 46.96 mL/min Estimated GFR (MDRD) 50.7 ml/min Glucose 102 (74-106) mg/dL Hemoglobin A1c (4.5-6.2) % Calcium 8.8 (8.5-10.1) mg/dL Phosphorus (2.6-4.7) mg/dL Magnesium (1.8-2.4) mg/dL Total Bilirubin 0.9 (0.2-1.0) mg/dL AST 12 L (15-37) IU/L ALT 19 (14-63) IU/L Alkaline Phosphatase 60 (46-116) U/L Troponin I < 0.050 (0.000-0.056) ng/mL B-Natriuretic Peptide 14 (<100) PG/ML Total Protein 6.9 (6.4-8.2) g/dL Albumin 3.7 (3.4-5.0) g/dL Globulin 3.2 (2.6-4.0) g/dL Albumin/Globulin Ratio 1.2 (0.9-1.6) Urine Color Urine Appearance Urine pH (5.0-8.0) Ur Specific [place] (1.001-1.035) Urine Protein (NEGATIVE) mg/dL Urine Glucose (UA) (NEGATIVE) mg/dL Urine Ketones (NEGATIVE) mg/dL Urine Occult Blood (NEGATIVE) Urine Nitrite (NEGATIVE) Urine Bilirubin (NEGATIVE) Urine Urobilinogen (<2.0) EU/dL Ur Leukocyte Esterase (NEGATIVE) Urine RBC (0-2/HPF) Urine WBC (0-5/HPF) Ur Epithelial Cells (NONE-FEW) Urine Bacteria (NEGATIVE) Urine Mucus (NONE-MOD) COVID-19 ([facility]) (NEGATIVE) SARS Virus RNA (PCR) (NEGATIVE) 06/29/20 06/29/20 06/29/20 Range/Units 18:10 18:10 18:40 WBC (4.0-11.0) K/uL RBC (4.30-5.90) M/uL Hgb (12.0-16.0) g/dL Hct (36.0-46.0) % MCV (80.0-98.0) fL MCH (27.0-32.0) pg MCHC (31.0-37.0) g/dL RDW Std Deviation (28.0-62.0) fl RDW Coeff of Malik (11.0-15.0) % Plt Count (150-400) K/uL MPV (7.40-12.00) fL Neut % (Auto) (48.0-80.0) % Lymph % (Auto) (16.0-40.0) % [place] % (Auto) (0.0-15.0) % Eos % (Auto) (0.0-7.0) % Baso % (Auto) (0.0-1.5) % Neut # (Auto) (1.4-5.7) K/uL Lymph # (Auto) (0.6-2.4) K/uL [place] # (Auto) (0.0-0.8) K/uL Eos # (Auto) (0.0-0.7) K/uL Baso # (Auto) (0.0-0.1) K/uL Nucleated RBC % /100WBC Nucleated RBCs # K/uL D-Dimer, Quantitative 1.11 H (0.0-0.50) mg/L FEU Lactate 1.1 (0.20-2.00) mmol/L Sodium (136-145) mmol/L Potassium (3.5-5.1) mmol/L Chloride (98-107) mmol/L Carbon Dioxide (21.0-32.0) mmol/L BUN (7.0-18.0) mg/dL Creatinine (0.6-1.0) mg/dL Est Cr Clr Drug Dosing mL/min Estimated GFR (MDRD) ml/min Glucose (74-106) mg/dL Hemoglobin A1c (4.5-6.2) % Calcium (8.5-10.1) mg/dL Phosphorus (2.6-4.7) mg/dL Magnesium (1.8-2.4) mg/dL Total Bilirubin (0.2-1.0) mg/dL AST (15-37) IU/L ALT (14-63) IU/L Alkaline Phosphatase (46-116) U/L Troponin I (0.000-0.056) ng/mL B-Natriuretic Peptide (<100) PG/ML Total Protein (6.4-8.2) g/dL Albumin (3.4-5.0) g/dL Globulin (2.6-4.0) g/dL Albumin/Globulin Ratio (0.9-1.6) Urine Color Urine Appearance Urine pH (5.0-8.0) Ur Specific [place] (1.001-1.035) Urine Protein (NEGATIVE) mg/dL Urine Glucose (UA) (NEGATIVE) mg/dL Urine Ketones (NEGATIVE) mg/dL Urine Occult Blood (NEGATIVE) Urine Nitrite (NEGATIVE) Urine Bilirubin (NEGATIVE) Urine Urobilinogen (<2.0) EU/dL Ur Leukocyte Esterase (NEGATIVE) Urine RBC (0-2/HPF) Urine WBC (0-5/HPF) Ur Epithelial Cells (NONE-FEW) Urine Bacteria (NEGATIVE) Urine Mucus (NONE-MOD) COVID-19 ([facility]) NEGATIVE (NEGATIVE) SARS Virus RNA (PCR) (NEGATIVE) 06/29/20 06/29/20 06/30/20 Range/Units 19:11 20:30 04:43 WBC 14.64 H (4.0-11.0) K/uL RBC 3.97 L (4.30-5.90) M/uL Hgb 12.6 (12.0-16.0) g/dL Hct 37.7 (36.0-46.0) % MCV 95.0 (80.0-98.0) fL MCH 31.7 (27.0-32.0) pg MCHC 33.4 (31.0-37.0) g/dL RDW Std Deviation 46.3 (28.0-62.0) fl RDW Coeff of Malik 13 (11.0-15.0) % Plt Count 265 (150-400) K/uL MPV 9.90 (7.40-12.00) fL Neut % (Auto) 88.4 H (48.0-80.0) % Lymph % (Auto) 6.1 L (16.0-40.0) % [place] % (Auto) 2.7 (0.0-15.0) % Eos % (Auto) 2.7 (0.0-7.0) % Baso % (Auto) 0.1 (0.0-1.5) % Neut # (Auto) 12.9 H (1.4-5.7) K/uL Lymph # (Auto) 0.9 (0.6-2.4) K/uL [place] # (Auto) 0.4 (0.0-0.8) K/uL Eos # (Auto) 0.4 (0.0-0.7) K/uL Baso # (Auto) 0.0 (0.0-0.1) K/uL Nucleated RBC % 0.0 /100WBC Nucleated RBCs # 0 K/uL D-Dimer, Quantitative (0.0-0.50) mg/L FEU Lactate (0.20-2.00) mmol/L Sodium (136-145) mmol/L Potassium (3.5-5.1) mmol/L Chloride (98-107) mmol/L Carbon Dioxide (21.0-32.0) mmol/L BUN (7.0-18.0) mg/dL Creatinine (0.6-1.0) mg/dL Est Cr Clr Drug Dosing mL/min Estimated GFR (MDRD) ml/min Glucose (74-106) mg/dL Hemoglobin A1c (4.5-6.2) % Calcium (8.5-10.1) mg/dL Phosphorus (2.6-4.7) mg/dL Magnesium (1.8-2.4) mg/dL Total Bilirubin (0.2-1.0) mg/dL AST (15-37) IU/L ALT (14-63) IU/L Alkaline Phosphatase (46-116) U/L Troponin I (0.000-0.056) ng/mL B-Natriuretic Peptide (<100) PG/ML Total Protein (6.4-8.2) g/dL Albumin (3.4-5.0) g/dL Globulin (2.6-4.0) g/dL Albumin/Globulin Ratio (0.9-1.6) Urine Color YELLOW Urine Appearance CLEAR Urine pH 5.0 (5.0-8.0) Ur Specific [place] 1.020 (1.001-1.035) Urine Protein NEGATIVE (NEGATIVE) mg/dL Urine Glucose (UA) NEGATIVE (NEGATIVE) mg/dL Urine Ketones >=80 (NEGATIVE) mg/dL Urine Occult Blood SMALL H (NEGATIVE) Urine Nitrite NEGATIVE (NEGATIVE) Urine Bilirubin NEGATIVE (NEGATIVE) Urine Urobilinogen 0.2 (<2.0) EU/dL Ur Leukocyte Esterase SMALL H (NEGATIVE) Urine RBC NONE SEEN (0-2/HPF) Urine WBC 1-3 (0-5/HPF) Ur Epithelial Cells FEW (NONE-FEW) Urine Bacteria FEW (NEGATIVE) Urine Mucus LIGHT (NONE-MOD) COVID-19 ([facility]) (NEGATIVE) SARS Virus RNA (PCR) NEGATIVE (NEGATIVE) 06/30/20 06/30/20 Range/Units 04:43 04:43 WBC (4.0-11.0) K/uL RBC (4.30-5.90) M/uL Hgb (12.0-16.0) g/dL Hct (36.0-46.0) % MCV (80.0-98.0) fL MCH (27.0-32.0) pg MCHC (31.0-37.0) g/dL RDW Std Deviation (28.0-62.0) fl RDW Coeff of Malik (11.0-15.0) % Plt Count (150-400) K/uL MPV (7.40-12.00) fL Neut % (Auto) (48.0-80.0) % Lymph % (Auto) (16.0-40.0) % [place] % (Auto) (0.0-15.0) % Eos % (Auto) (0.0-7.0) % Baso % (Auto) (0.0-1.5) % Neut # (Auto) (1.4-5.7) K/uL Lymph # (Auto) (0.6-2.4) K/uL [place] # (Auto) (0.0-0.8) K/uL Eos # (Auto) (0.0-0.7) K/uL Baso # (Auto) (0.0-0.1) K/uL Nucleated RBC % /100WBC Nucleated RBCs # K/uL D-Dimer, Quantitative (0.0-0.50) mg/L FEU Lactate (0.20-2.00) mmol/L Sodium 141 (136-145) mmol/L Potassium 3.6 (3.5-5.1) mmol/L Chloride 105 (98-107) mmol/L Carbon Dioxide 23.3 (21.0-32.0) mmol/L BUN 12 (7.0-18.0) mg/dL Creatinine 1.0 (0.6-1.0) mg/dL Est Cr Clr Drug Dosing 45.14 mL/min Estimated GFR (MDRD) 56.6 ml/min Glucose 184 H (74-106) mg/dL Hemoglobin A1c 5.4 (4.5-6.2) % Calcium 8.2 L (8.5-10.1) mg/dL Phosphorus 3.4 (2.6-4.7) mg/dL Magnesium 1.8 (1.8-2.4) mg/dL Total Bilirubin (0.2-1.0) mg/dL AST (15-37) IU/L ALT (14-63) IU/L Alkaline Phosphatase (46-116) U/L Troponin I (0.000-0.056) ng/mL B-Natriuretic Peptide (<100) PG/ML Total Protein (6.4-8.2) g/dL Albumin (3.4-5.0) g/dL Globulin (2.6-4.0) g/dL Albumin/Globulin Ratio (0.9-1.6) Urine Color Urine Appearance Urine pH (5.0-8.0) Ur Specific [place] (1.001-1.035) Urine Protein (NEGATIVE) mg/dL Urine Glucose (UA) (NEGATIVE) mg/dL Urine Ketones (NEGATIVE) mg/dL Urine Occult Blood (NEGATIVE) Urine Nitrite (NEGATIVE) Urine Bilirubin (NEGATIVE) Urine Urobilinogen (<2.0) EU/dL Ur Leukocyte Esterase (NEGATIVE) Urine RBC (0-2/HPF) Urine WBC (0-5/HPF) Ur Epithelial Cells (NONE-FEW) Urine Bacteria (NEGATIVE) Urine Mucus (NONE-MOD) COVID-19 ([facility]) (NEGATIVE) SARS Virus RNA (PCR) (NEGATIVE) [facility] Results Last 24 Hours: Microbiology 06/29/20 20:30 Influenza Type A Antigen Screen - Final Nasopharyngeal Swab NEGATIVE INFLUENZA A VIRUS AG REFERENCE RANGE: NEGATIVE Influenza Type B Antigen Screen - Final NEGATIVE INFLUENZA B VIRUS AG REFERENCE RANGE: NEGATIVE Med Orders - Current: Current Medications Acetaminophen (Tylenol Extra Strength) 500 mg PO Q6H PRN PRN Reason: Pain (mild 1-3) Last Admin: 06/30/20 09:47 Dose: 500 mg Documented by: Albuterol/Ipratropium (Duoneb 3.0-0.5 Mg/3 Ml) 3 ml NEB Q4HRRT PRN PRN Reason: Dyspnea Alprazolam (Xanax) 0.5 mg PO DAILY [facility] Last Admin: 06/30/20 08:56 Dose: 0.5 mg Documented by: Azithromycin (Zithromax) 500 mg PO BEDTIME [facility] Buspirone HCl (Buspar) 10 mg PO DAILY [facility] Last Admin: 06/30/20 08:56 Dose: 10 mg Documented by: Ceftriaxone Sodium/Dextrose 1 (gm/ Premix) 50 mls @ 100 mls/hr IV Q24H [facility] Last Admin: 06/30/20 09:03 Dose: 100 mls/hr Documented by: Methylprednisolone Sodium Succinate (Solu-Medrol) 40 mg IVPUSH Q12H [facility] Last Admin: 06/30/20 08:54 Dose: 40 mg Documented by: Morphine Sulfate (Morphine) 1 mg IVPUSH Q4H PRN PRN Reason: Pain (severe 7-10) Stop: 06/30/20 23:12 Last Admin: 06/30/20 03:14 Dose: 1 mg Documented by: Nicotine (Habitrol) 21 mg TRDERM DAILY [facility] Last Admin: 06/30/20 08:55 Dose: 21 mg Documented by: Ondansetron HCl (Zofran) 4 mg IVPUSH Q4H PRN PRN Reason: Nausea/Vomiting Budesonide/Formoterol 160-4.5 Mcg/Puff 6 Gm Inhaler 0 each INH BID [facility] Last Admin: 06/30/20 10:44 Dose: Not Given Documented by: Sodium Chloride (Saline Flush) 10 ml FLUSH ASDIRECTED PRN PRN Reason: Keep Vein Open Last Admin: 06/29/20 18:29 Dose: 10 ml Documented by: Sodium Chloride (Saline Flush) 2.5 ml FLUSH ASDIRECTED PRN PRN Reason: Keep Vein Open Last Admin: 06/29/20 18:28 Dose: 2.5 ml Documented by: Sodium Chloride (Saline Flush) 2.5 ml FLUSH ASDIRECTED PRN PRN Reason: Keep Vein Open Last Admin: 06/29/20 18:29 Dose: 2.5 ml Documented by: Discontinued Medications Albuterol (Ventolin Hfa) 4 gm INH ONETIME ONE Stop: 06/29/20 18:13 Last Admin: 06/29/20 18:37 Dose: Not Given Documented by: Albuterol (Ventolin Hfa) 18 gm INH ONETIME ONE Stop: 06/29/20 18:32 Last Admin: 06/29/20 18:36 Dose: 18 g Documented by: Albuterol (Ventolin Hfa) Confirm Administered Dose 18 gm .ROUTE .STK-MED ONE Stop: 06/29/20 18:36 Last Admin: 06/29/20 18:39 Dose: Not Given Documented by: Albuterol (Ventolin Hfa) 2 gm INH ONETIME ONE Stop: 06/29/20 20:36 Last Admin: 06/29/20 20:39 Dose: 2 inh Documented by: Albuterol/Ipratropium (Duoneb 3.0-0.5 Mg/3 Ml) 3 ml NEB ONETIME ONE Stop: 06/29/20 19:58 Last Admin: 06/29/20 20:39 Dose: Not Given Documented by: Aspirin (Aspirin) 324 mg PO ONETIME ONE Stop: 06/29/20 18:12 Last Admin: 06/29/20 18:28 Dose: 324 mg Documented by: Dexamethasone (Dexamethasone) 10 mg IVPUSH ONETIME ONE Stop: 06/29/20 18:13 Last Admin: 06/29/20 18:28 Dose: 10 mg Documented by: Furosemide (Lasix) 20 mg IVPUSH ONETIME ONE Stop: 06/29/20 23:27 Last Admin: 06/29/20 23:52 Dose: 20 mg Documented by: Furosemide (Lasix) 20 mg IVPUSH ONETIME ONE Stop: 06/30/20 10:10 Last Admin: 06/30/20 11:02 Dose: 20 mg Documented by: Sodium Chloride (Normal Saline) 1,000 mls @ 999 mls/hr IV BOLUS ONE Stop: 06/29/20 19:11 Last Admin: 06/29/20 18:28 Dose: 999 mls/hr Documented by: Ceftriaxone Sodium/Dextrose 1 (gm/ Premix) 50 mls @ 100 mls/hr IV ONETIME ONE Stop: 06/29/20 20:26 Last Admin: 06/29/20 20:37 Dose: 100 mls/hr Documented by: Azithromycin 500 mg/ Sodium (Chloride) 250 mls @ 250 mls/hr IV ONETIME [facility] Last Admin: 06/29/20 21:14 Dose: 250 mls/hr Documented by: Ceftriaxone Sodium 1 gm/ (Sodium Chloride) 50 mls @ 100 mls/hr IV Q24H [facility] Iopamidol (Isovue-370 (76%)) 50 ml IV ONETIME STA Stop: 06/29/20 20:40 Last Admin: 06/29/20 20:40 Dose: 50 ml Documented by: - Exam Quality Assessment: Supplemental Oxygen General: Alert, Oriented, Cooperative, No Acute Distress HEENT: EOMI Neck: Supple Lungs: Normal Respiratory Effort, Other (mild rhonchi noted in right lower lung base comapred to left ) Cardiovascular: Regular Rate, Regular Rhythm GI/Abdominal Exam: Normal Bowel Sounds, Soft, Non-Tender Back Exam: Normal Inspection, Full Range of Motion Extremities: Normal Inspection, No Pedal Edema Skin: Warm, Intact Neurological: No New Focal Deficit Psy/Mental Status: Alert, Normal Affect, Normal Mood Sepsis Event Note - Evaluation Sepsis Screening Result: No Definite Risk - Focused Exam Vital Signs: Vital Signs Temp Pulse Resp BP Pulse Ox Pulse Ox 06/30/20 11:46 98.1 F 80 20 92/50 L 90 L 06/30/20 08:00 97.4 F 65 20 103/51 L 95 06/30/20 03:57 76 18 90/58 L 95 06/30/20 02:23 92 L - Problem List Review Problem List Initiated/Reviewed/Updated: Yes - My Orders Last 24 Hours: My Active Orders 06/30/20 07:54 RT Post Treatment Assessment [RC] Click to Edit RT Pre-Treatment Assessment [RC] Click to Edit 06/30/20 09:00 ALPRAZolam [Xanax] 0.5 mg PO DAILY Patient's Own Medication [Ptom] 0 each INH BID busPIRone [Buspar] 10 mg PO DAILY 06/30/20 11:31 Code Status [Resuscitation Status] Routine 07/01/20 05:11 BASIC METABOLIC PANEL,BMP [CHEM] AM CBC WITH AUTO DIFF [HEME] AM 07/02/20 05:11 BASIC METABOLIC PANEL,BMP [CHEM] AM CBC WITH AUTO DIFF [HEME] AM 07/03/20 05:11 BASIC METABOLIC PANEL,BMP [CHEM] AM CBC WITH AUTO DIFF [HEME] AM - Plan Plan:: 59 y/o F admitted for Acute hypoxic respiratory failure due to CAP vs COPD DNR/DNI Leucocytosis noted Received IV antibiotics in ER, cont Antibiotics f/u on cultures Continue IV solumedrol 40mg Q12 DuoNeb as needs for SOB Oxygenation via nasal cannula Trial od lasix 20 mg once this afternoon; concerns for beginning of heart failure/right heart strain: ECHO will be ordered SCD for dvt ppx Monitor and replete electrolytes as needed Tylenol for pain Nicotine patch <Jen Arias - Last Filed: 07/01/20 12:58> - General Info Subjective Update: I have seen and evaluated the patient and agree with the residents note unless specified in my note - Patient Data Vitals - Most Recent: Last Vital Signs Temp 36.6 C 07/01/20 08:00 Pulse 59 L 07/01/20 08:00 Resp 18 07/01/20 04:55 BP 105/56 L 07/01/20 08:00 Pulse Ox 93 L 07/01/20 08:00 I&O - Last 24 Hours: Intake & Output 06/30/20 07/01/20 07/01/20 22:59 06:59 14:59 Intake Total 290 1180 50 Output Total 600 950 Balance -310 230 50 Lab Results Last 24 Hours: Laboratory Results - last 24 hr 07/01/20 07/01/20 Range/Units 04:48 04:48 WBC 23.47 H (4.0-11.0) K/uL RBC 3.87 L (4.30-5.90) M/uL Hgb 12.4 (12.0-16.0) g/dL Hct 36.8 (36.0-46.0) % MCV 95.1 (80.0-98.0) fL MCH 32.0 (27.0-32.0) pg MCHC 33.7 (31.0-37.0) g/dL RDW Std Deviation 47.3 (28.0-62.0) fl RDW Coeff of Malik 14 (11.0-15.0) % Plt Count 294 (150-400) K/uL MPV 10.00 (7.40-12.00) fL Neut % (Auto) 83.0 H (48.0-80.0) % Lymph % (Auto) 11.7 L (16.0-40.0) % [place] % (Auto) 4.6 (0.0-15.0) % Eos % (Auto) 0.6 (0.0-7.0) % Baso % (Auto) 0.1 (0.0-1.5) % Neut # (Auto) 19.5 H (1.4-5.7) K/uL Lymph # (Auto) 2.8 H (0.6-2.4) K/uL [place] # (Auto) 1.1 H (0.0-0.8) K/uL Eos # (Auto) 0.1 (0.0-0.7) K/uL Baso # (Auto) 0.0 (0.0-0.1) K/uL Nucleated RBC % 0.0 /100WBC Nucleated RBCs # 0 K/uL Sodium 141 (136-145) mmol/L Potassium 4.2 (3.5-5.1) mmol/L Chloride 106 (98-107) mmol/L Carbon Dioxide 24.3 (21.0-32.0) mmol/L BUN 23 H (7.0-18.0) mg/dL Creatinine 0.9 (0.6-1.0) mg/dL Est Cr Clr Drug Dosing 50.16 mL/min Estimated GFR (MDRD) > 60.0 ml/min Glucose 140 H (74-106) mg/dL Calcium 9.0 (8.5-10.1) mg/dL [facility] Results Last 24 Hours: Microbiology 06/29/20 18:12 Aerobic Blood Culture - Preliminary Blood - Venous - Lab Draw NO GROWTH AFTER 1 DAY Anaerobic Blood Culture - Preliminary NO GROWTH AFTER 1 DAY 06/29/20 18:10 Aerobic Blood Culture - Preliminary Blood - Venous NO GROWTH AFTER 1 DAY Anaerobic Blood Culture - Preliminary NO GROWTH AFTER 1 DAY Med Orders - Current: Current Medications Discontinued Medications Acetaminophen (Tylenol Extra Strength) 500 mg PO Q6H PRN PRN Reason: Pain (mild 1-3) Last Admin: 06/30/20 09:47 Dose: 500 mg Documented by: Albuterol (Ventolin Hfa) 4 gm INH ONETIME ONE Stop: 06/29/20 18:13 Last Admin: 06/29/20 18:37 Dose: Not Given Documented by: Albuterol (Ventolin Hfa) 18 gm INH ONETIME ONE Stop: 06/29/20 18:32 Last Admin: 06/29/20 18:36 Dose: 18 g Documented by: Albuterol (Ventolin Hfa) Confirm Administered Dose 18 gm .ROUTE .STK-MED ONE Stop: 06/29/20 18:36 Last Admin: 06/29/20 18:39 Dose: Not Given Documented by: Albuterol (Ventolin Hfa) 2 gm INH ONETIME ONE Stop: 06/29/20 20:36 Last Admin: 06/29/20 20:39 Dose: 2 inh Documented by: Albuterol/Ipratropium (Duoneb 3.0-0.5 Mg/3 Ml) 3 ml NEB ONETIME ONE Stop: 06/29/20 19:58 Last Admin: 06/29/20 20:39 Dose: Not Given Documented by: Albuterol/Ipratropium (Duoneb 3.0-0.5 Mg/3 Ml) 3 ml NEB Q4HRRT PRN PRN Reason: Dyspnea Alprazolam (Xanax) 0.5 mg PO DAILY [facility] Last Admin: 07/01/20 09:04 Dose: 0.5 mg Documented by: Aspirin (Aspirin) 324 mg PO ONETIME ONE Stop: 06/29/20 18:12 Last Admin: 06/29/20 18:28 Dose: 324 mg Documented by: Azithromycin (Zithromax) 500 mg PO BEDTIME [facility] Last Admin: 06/30/20 21:03 Dose: 500 mg Documented by: Buspirone HCl (Buspar) 10 mg PO DAILY [facility] Last Admin: 07/01/20 09:04 Dose: 10 mg Documented by: Dexamethasone (Dexamethasone) 10 mg IVPUSH ONETIME ONE Stop: 06/29/20 18:13 Last Admin: 06/29/20 18:28 Dose: 10 mg Documented by: Furosemide (Lasix) 20 mg IVPUSH ONETIME ONE Stop: 06/29/20 23:27 Last Admin: 06/29/20 23:52 Dose: 20 mg Documented by: Furosemide (Lasix) 20 mg IVPUSH ONETIME ONE Stop: 06/30/20 10:10 Last Admin: 06/30/20 11:02 Dose: 20 mg Documented by: Sodium Chloride (Normal Saline) 1,000 mls @ 999 mls/hr IV BOLUS ONE Stop: 06/29/20 19:11 Last Admin: 06/29/20 18:28 Dose: 999 mls/hr Documented by: Ceftriaxone Sodium/Dextrose 1 (gm/ Premix) 50 mls @ 100 mls/hr IV ONETIME ONE Stop: 06/29/20 20:26 Last Admin: 06/29/20 20:37 Dose: 100 mls/hr Documented by: Azithromycin 500 mg/ Sodium (Chloride) 250 mls @ 250 mls/hr IV ONETIME [facility] Last Admin: 06/29/20 21:14 Dose: 250 mls/hr Documented by: Ceftriaxone Sodium 1 gm/ (Sodium Chloride) 50 mls @ 100 mls/hr IV Q24H [facility] Ceftriaxone Sodium/Dextrose 1 (gm/ Premix) 50 mls @ 100 mls/hr IV Q24H [facility] Last Admin: 07/01/20 09:10 Dose: 100 mls/hr Documented by: Iopamidol (Isovue-[id number] (76%)) 50 ml IV ONETIME STA Stop: 06/29/20 20:40 Last Admin: 06/29/20 20:40 Dose: 50 ml Documented by: Methylprednisolone Sodium Succinate (Solu-Medrol) 40 mg IVPUSH Q12H [facility] Last Admin: 07/01/20 09:04 Dose: 40 mg Documented by: Morphine Sulfate (Morphine) 1 mg IVPUSH Q4H PRN PRN Reason: Pain (severe 7-10) Stop: 06/30/20 23:12 Last Admin: 06/30/20 03:14 Dose: 1 mg Documented by: Nicotine (Habitrol) 21 mg TRDERM DAILY [facility] Last Admin: 07/01/20 09:08 Dose: 21 mg Documented by: Nicotine (Habitrol) 21 mg TRDERM ONETIME ONE Stop: 06/30/20 19:55 Last Admin: 06/30/20 21:03 Dose: 21 mg Documented by: Ondansetron HCl (Zofran) 4 mg IVPUSH Q4H PRN PRN Reason: Nausea/Vomiting Budesonide/Formoterol 160-4.5 Mcg/Puff 6 Gm Inhaler 0 each INH BID [facility] Last Admin: 07/01/20 09:11 Dose: Not Given Documented by: Sodium Chloride (Saline Flush) 10 ml FLUSH ASDIRECTED PRN PRN Reason: Keep Vein Open Last Admin: 06/29/20 18:29 Dose: 10 ml Documented by: Sodium Chloride (Saline Flush) 2.5 ml FLUSH ASDIRECTED PRN PRN Reason: Keep Vein Open Last Admin: 06/29/20 18:28 Dose: 2.5 ml Documented by: Sodium Chloride (Saline Flush) 2.5 ml FLUSH ASDIRECTED PRN PRN Reason: Keep Vein Open Last Admin: 06/29/20 18:29 Dose: 2.5 ml Documented by: Sepsis Event Note - Focused Exam Vital Signs: Vital Signs Temp Pulse Resp BP Pulse Ox 07/01/20 08:00 36.6 C 59 L 105/56 L 93 L 07/01/20 04:55 36.6 C 63 18 99/55 L 92 L - Problem List & Annotations (1) Acute hypoxemic respiratory failure SNOMED Code(s): 616382158 Code(s): J96.01 - ACUTE RESPIRATORY FAILURE WITH HYPOXIA Status: Acute
[2020-06-30] MEDS ORDERED: Nicotine 21 MG/24 Hr Patch TRDERM ONE (19:54)
[2020-06-30] MEDS ORDERED: Azithromycin 250 MG Tab PO SCH (21:00)
[2020-07-01 06:18] LABS: BLOOD UREA NITROGEN,BUN 23 mg/dL (7.0-18.0); CARBON DIOXIDE,CO2 24.3 mmol/L (21.0-32.0); CHLORIDE,CL 106 mmol/L (98-107); GLUCOSE RANDOM 140 mg/dL (74-106); POTASSIUM,K 4.2 mmol/L (3.5-5.1); SODIUM,NA 141 mmol/L (136-145)
[2020-07-01] MEDS: busPIRone 5 MG Tab PO SCH (09:04)
[2020-07-01] MEDS: methylPREDNISolone Sodium Succinate 40 MG/1 ML SDV IVPUSH SCH (09:04)
[2020-07-01] MEDS: ALPRAZolam 0.5 MG Tab PO SCH (09:04)
[2020-07-01] MEDS: Nicotine 21 MG/24 Hr Patch TRDERM SCH (09:08)
[2020-07-01] MEDS: cefTRIAXone 1 GM in Premix Bag 1 BAG IV SCH (09:10)
[2020-07-01] MEDS: Budesonide/Formoterol 160-4.5 MCG/Puff 6 GM Inhaler INH SCH (09:11)
--- NOTE | 2020-07-01 10:56 | PCM.DCSUM1 ---
Discharge Summary - Hospital Course Free Text/Narrative:: This is a 59-year-old female with a history significant for COPD who presents ER today secondary to progressive shortness of breath that started on Monday. Patient reports starting on she started having increasing shortness of breath and was was unable to perform her ADLS. Today her symptoms got worse so she came to the ED. Patient reports that she uses an albuterol MDI at home for her COPD but has never required home oxygen or nebulizer therapies. Patient was recently treated for UTI with oral antibiotics. Patient reports no history of hypertension, diabetes, liver, kidney problems in the past. Patient denies any fever. Patient reports that she has had a nonproductive cough which is chronic in nature.Patient denies any chest pain, calf tenderness, lower extremity edema, history of PE or DVT. Patient denies any history of CHF, cor onary disease, irregular heartbeats in the past. Patient denies any fevers, shakes, chills, sore throat. Patient's pulse ox on arrival was 83% on room air , started on 3 L which improved her pulse oxy to 93%. Patient's labs are significant for COVID test negative x2. Patient's chest x-ray was concerning for increased bilateral interstitial markings concerning for possible atypical pneumonia versus pulmonary edema. Patient's BNP was 14 which makes pulmonary edema secondary to congestive heart failure less likely. Patient's chest x-ray also did not reveal an enlarged heart. Patient's d-dimer was elevated so a CTA was obtained which did not reveal any evidence of pulmonary embolism or discrete infiltrate. ED course: , the patient was given Decadron, albuterol MDIs, Rocephin, Zithromax to treat for pneumonia given her elevated WBC count and the abnormal chest x- ray. Patient does feel improved on her O2. Patient was admitted to the hospital for further management of her hypoxia and her COPD exacerbation with possible atypical pneumonia. Hospital course: Day of admission and following day patient was weaned off of oxygen was feeling much better. States that her cough had improved and her chest felt "looser" suggesting a little more increased sputum production. Echocardiogram performed however results are still pending. White count did jump up to 24 however patient was receiving prednisone 40 mg twice daily on top of her antibiotics. Walking O2 trial suggesting saturations greater than 94%. Patient was sent home per her request and vitals are stable. Patient discharged with Levaquin to complete course, 5 additional days of prednisone, nicotine patches and Advair. 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 Prescription for outpatient PFTs also provided to get a formal diagnosis of COPD. Patient was also trialed on 1 dose of Lasix 20 mg; however minimal diuresis was appreciated; chest x-ray did show a mild bilateral lower lobe infiltrate with some vascular congestion some concerns about right heart strain versus heart failure were discussed however patient does have did not seem or appear in florid heart failure; results of accordingly forward to primary care physician. Patient discharged in stable conditions. Vitals stable. Discharge home without need for oxygen. - Discharge Data Discharge Date: 07/01/20 Discharge Disposition: Home, Self-Care 01 Condition: Fair - Referral to Home Health Primary Care Physician: Lizzie Cui NP - Discharge Plan *PRESCRIPTION DRUG MONITORING PROGRAM REVIEWED*: Not Applicable *COPY OF PRESCRIPTION DRUG MONITORING REPORT IN PATIENT SOPHIA: Not Applicable Prescriptions/Med Rec: Fluticasone Propion/Salmeterol [Advair 250-50 Diskus] 1 each IH DAILY 30 Days #1 blst.w.dev Nicotine [Habitrol] 21 mg TRDERM DAILY 30 Days #30 patch levoFLOXacin [Levaquin] 750 mg PO DAILY 6 Days #6 tablet predniSONE [Prednisone] 40 mg PO DAILY 6 Days #12 tablet Home Medications: Home Meds ALPRAZolam [Alprazolam] 0.5 mg PO DAILY 11/03/19 [History] busPIRone [Buspar] 10 mg PO DAILY 11/03/19 [History] Acetaminophen [Tylenol Extra Strength] 500 mg PO Q6H PRN tablet 07/01/20 [Rx] Fluticasone Propion/Salmeterol [Advair 250-50 Diskus] 1 each IH DAILY 30 Days #1 blst.w.dev 07/01/20 [Rx] Nicotine [Habitrol] 21 mg TRDERM DAILY 30 Days #30 patch 07/01/20 [Rx] levoFLOXacin [Levaquin] 750 mg PO DAILY 6 Days #6 tablet 07/01/20 [Rx] predniSONE [Prednisone] 40 mg PO DAILY 6 Days #12 tablet 07/01/20 [Rx] Patient Handouts: Chronic Obstructive Pulmonary Disease, Gfcr-[id number], Levofloxacin tablets, Nicotine skin patches, Prednisone tablets, Community- Acquired Pneumonia, Adult, [id number]-[id number] Referrals: Lizzie Cui, [employer] [Primary Care Provider] - 07/08/20 10:00 am - Discharge Summary/Plan Comment DC Time >30 min.: No - Patient Data Vitals - Most Recent: Last Vital Signs Temp 97.9 F 07/01/20 08:00 Pulse 59 L 07/01/20 08:00 Resp 18 07/01/20 04:55 BP 105/56 L 07/01/20 08:00 Pulse Ox 93 L 07/01/20 08:00 Weight - Most Recent: 52.617 kg I&O - Last 24 hours: Intake & Output 06/30/20 07/01/20 07/01/20 22:59 06:59 14:59 Intake Total 290 1180 Output Total 600 950 Balance -310 230 Lab Results - Last 24 hrs: Laboratory Results - last 24 hr 07/01/20 07/01/20 Range/Units 04:48 04:48 WBC 23.47 H (4.0-11.0) K/uL RBC 3.87 L (4.30-5.90) M/uL Hgb 12.4 (12.0-16.0) g/dL Hct 36.8 (36.0-46.0) % MCV 95.1 (80.0-98.0) fL MCH 32.0 (27.0-32.0) pg MCHC 33.7 (31.0-37.0) g/dL RDW Std Deviation 47.3 (28.0-62.0) fl RDW Coeff of Malik 14 (11.0-15.0) % Plt Count 294 (150-400) K/uL MPV 10.00 (7.40-12.00) fL Neut % (Auto) 83.0 H (48.0-80.0) % Lymph % (Auto) 11.7 L (16.0-40.0) % [place] % (Auto) 4.6 (0.0-15.0) % Eos % (Auto) 0.6 (0.0-7.0) % Baso % (Auto) 0.1 (0.0-1.5) % Neut # (Auto) 19.5 H (1.4-5.7) K/uL Lymph # (Auto) 2.8 H (0.6-2.4) K/uL [place] # (Auto) 1.1 H (0.0-0.8) K/uL Eos # (Auto) 0.1 (0.0-0.7) K/uL Baso # (Auto) 0.0 (0.0-0.1) K/uL Nucleated RBC % 0.0 /100WBC Nucleated RBCs # 0 K/uL Sodium 141 (136-145) mmol/L Potassium 4.2 (3.5-5.1) mmol/L Chloride 106 (98-107) mmol/L Carbon Dioxide 24.3 (21.0-32.0) mmol/L BUN 23 H (7.0-18.0) mg/dL Creatinine 0.9 (0.6-1.0) mg/dL Est Cr Clr Drug Dosing 50.16 mL/min Estimated GFR (MDRD) > 60.0 ml/min Glucose 140 H (74-106) mg/dL Calcium 9.0 (8.5-10.1) mg/dL YUE Results - Last 24 hrs: Microbiology 06/29/20 18:12 Aerobic Blood Culture - Preliminary Blood - Venous - Lab Draw NO GROWTH AFTER 1 DAY Anaerobic Blood Culture - Preliminary NO GROWTH AFTER 1 DAY 06/29/20 18:10 Aerobic Blood Culture - Preliminary Blood - Venous NO GROWTH AFTER 1 DAY Anaerobic Blood Culture - Preliminary NO GROWTH AFTER 1 DAY Med Orders - Current: Current Medications Acetaminophen (Tylenol Extra Strength) 500 mg PO Q6H PRN PRN Reason: Pain (mild 1-3) Last Admin: 06/30/20 09:47 Dose: 500 mg Documented by: Albuterol/Ipratropium (Duoneb 3.0-0.5 Mg/3 Ml) 3 ml NEB Q4HRRT PRN PRN Reason: Dyspnea Alprazolam (Xanax) 0.5 mg PO DAILY [facility] Last Admin: 07/01/20 09:04 Dose: 0.5 mg Documented by: Azithromycin (Zithromax) 500 mg PO BEDTIME SARAH Last Admin: 06/30/20 21:03 Dose: 500 mg Documented by: Buspirone HCl (Buspar) 10 mg PO DAILY [facility] Last Admin: 07/01/20 09:04 Dose: 10 mg Documented by: Ceftriaxone Sodium/Dextrose 1 (gm/ Premix) 50 mls @ 100 mls/hr IV Q24H [facility] Last Admin: 07/01/20 09:10 Dose: 100 mls/hr Documented by: Methylprednisolone Sodium Succinate (Solu-Medrol) 40 mg IVPUSH Q12H [facility] Last Admin: 07/01/20 09:04 Dose: 40 mg Documented by: Nicotine (Habitrol) 21 mg TRDERM DAILY [facility] Last Admin: 07/01/20 09:08 Dose: 21 mg Documented by: Ondansetron HCl (Zofran) 4 mg IVPUSH Q4H PRN PRN Reason: Nausea/Vomiting Budesonide/Formoterol 160-4.5 Mcg/Puff 6 Gm Inhaler 0 each INH BID [facility] Last Admin: 07/01/20 09:11 Dose: Not Given Documented by: Sodium Chloride (Saline Flush) 10 ml FLUSH ASDIRECTED PRN PRN Reason: Keep Vein Open Last Admin: 06/29/20 18:29 Dose: 10 ml Documented by: Sodium Chloride (Saline Flush) 2.5 ml FLUSH ASDIRECTED PRN PRN Reason: Keep Vein Open Last Admin: 06/29/20 18:28 Dose: 2.5 ml Documented by: Sodium Chloride (Saline Flush) 2.5 ml FLUSH ASDIRECTED PRN PRN Reason: Keep Vein Open Last Admin: 06/29/20 18:29 Dose: 2.5 ml Documented by: Discontinued Medications Albuterol (Ventolin Hfa) 4 gm INH ONETIME ONE Stop: 06/29/20 18:13 Last Admin: 06/29/20 18:37 Dose: Not Given Documented by: Albuterol (Ventolin Hfa) 18 gm INH ONETIME ONE Stop: 06/29/20 18:32 Last Admin: 06/29/20 18:36 Dose: 18 g Documented by: Albuterol (Ventolin Hfa) Confirm Administered Dose 18 gm .ROUTE .STK-MED ONE Stop: 06/29/20 18:36 Last Admin: 06/29/20 18:39 Dose: Not Given Documented by: Albuterol (Ventolin Hfa) 2 gm INH ONETIME ONE Stop: 06/29/20 20:36 Last Admin: 06/29/20 20:39 Dose: 2 inh Documented by: Albuterol/Ipratropium (Duoneb 3.0-0.5 Mg/3 Ml) 3 ml NEB ONETIME ONE Stop: 06/29/20 19:58 Last Admin: 06/29/20 20:39 Dose: Not Given Documented by: Aspirin (Aspirin) 324 mg PO ONETIME ONE Stop: 06/29/20 18:12 Last Admin: 06/29/20 18:28 Dose: 324 mg Documented by: Dexamethasone (Dexamethasone) 10 mg IVPUSH ONETIME ONE Stop: 06/29/20 18:13 Last Admin: 06/29/20 18:28 Dose: 10 mg Documented by: Furosemide (Lasix) 20 mg IVPUSH ONETIME ONE Stop: 06/29/20 23:27 Last Admin: 06/29/20 23:52 Dose: 20 mg Documented by: Furosemide (Lasix) 20 mg IVPUSH ONETIME ONE Stop: 06/30/20 10:10 Last Admin: 06/30/20 11:02 Dose: 20 mg Documented by: Sodium Chloride (Normal Saline) 1,000 mls @ 999 mls/hr IV BOLUS ONE Stop: 06/29/20 19:11 Last Admin: 06/29/20 18:28 Dose: 999 mls/hr Documented by: Ceftriaxone Sodium/Dextrose 1 (gm/ Premix) 50 mls @ 100 mls/hr IV ONETIME ONE Stop: 06/29/20 20:26 Last Admin: 06/29/20 20:37 Dose: 100 mls/hr Documented by: Azithromycin 500 mg/ Sodium (Chloride) 250 mls @ 250 mls/hr IV ONETIME SARAH Last Admin: 06/29/20 21:14 Dose: 250 mls/hr Documented by: Ceftriaxone Sodium 1 gm/ (Sodium Chloride) 50 mls @ 100 mls/hr IV Q24H SARAH Iopamidol (Isovue-370 (76%)) 50 ml IV ONETIME STA Stop: 06/29/20 20:40 Last Admin: 06/29/20 20:40 Dose: 50 ml Documented by: Morphine Sulfate (Morphine) 1 mg IVPUSH Q4H PRN PRN Reason: Pain (severe 7-10) Stop: 06/30/20 23:12 Last Admin: 06/30/20 03:14 Dose: 1 mg Documented by: Nicotine (Habitrol) 21 mg TRDERM ONETIME ONE Stop: 06/30/20 19:55 Last Admin: 06/30/20 21:03 Dose: 21 mg Documented by:
--- NOTE | 2020-07-02 12:06 | ECHO ---
EXAM DATE: 06/29/20 PATIENT'S AGE: 59 The ECHO report has been scanned into [employer] and can be seen in this patient's EMR (Electronic Medical Record) under the REPORTS section. The report has also been scanned into PACS. RUSS
== END 2020-07-01 12:00 | disposition home or self-care (01) ==
LOC: MW.ED 18:03 → MW.MS 21:59
PROVIDERS: ADMIT Student in an Organized Health Care Education/Training Program; ATTEND Student in an Organized Health Care Education/Training Program
DX: J96.01 Acute respiratory failure with hypoxia (principal); J44.9 Chronic obstructive pulmonary disease, unspecified; F17.210 Nicotine dependence, cigarettes, uncomplicated; Z79.899 Other long term (current) drug therapy; Z20.828 Contact with and (suspected) exposure to other viral communicable diseases
CPT/HCPCS: 36415; 71045; 71275; 80048; 80053; 81001; 83036; 83605; 83735; 83880; 84100; 84484; 85025; 85379; 87040; 87635; 87804; 93005; 93306; 96361; 96365; 96367; 96375; 96376; 99285; A9270; G0378; J0456; J0696; J1100; J2270; J2920; J7030; J7050; Q9967; 99291; J3535-GY; U0002

== ENCOUNTER 2020-12-10 03:24 | Inpatient (IN) | payer BC ==
[2020-12-10] MEDS ORDERED: Sodium Chloride 0.9% 10 ML Syringe FLUSH PRN (04:08)
[2020-12-10] MEDS ORDERED: Morphine 4 MG/ML Syringe IVPUSH ONE (04:08)
[2020-12-10] MEDS ORDERED: Ondansetron 4 MG/2 ML SDV IVPUSH ONE (04:08)
[2020-12-10] MEDS ORDERED: Sodium Chloride 0.9% 1,000 ML IV ONE (04:08)
[2020-12-10] MEDS: Sodium Chloride 0.9% 2.5 ML Syringe FLUSH PRN (04:18)
[2020-12-10 04:43] LABS: CARBON DIOXIDE,CO2 25.7 mmol/L (21.0-32.0); POTASSIUM,K 4.4 mmol/L (3.5-5.1)
--- NOTE | 2020-12-10 04:43 | EDM.PDOC ---
ED HPI GENERAL MEDICAL PROBLEM - General Chief Complaint: ENT Problem Stated Complaint: SORES IN MOUTH AND THROAT Time Seen by Provider: 12/10/20 04:09 - History of Present Illness INITIAL COMMENTS - FREE TEXT/NARRATIVE: HISTORY AND PHYSICAL: History of present illness: This is a 60-year-old female with a history significant for COPD, recurrent UTIs, status post hysterectomy, who presents to the ER today secondary to pain and discomfort in her mouth that began earlier this evening. Patient is also complaining of similar discomfort to her vaginal/vulvar area that began approximately 3 days ago as well. Patient reports that she has been seeing and being evaluated by her primary care physician secondary to hematuria. She reports that she got started on Macrobid several days ago for hematuria and possible urinary tract infection. She reports after being started on Macrobid she developed a rash and was told to discontinue the Macrobid and a prescription for Bactrim was instead prescribed. Patient reports after being started on the Macrobid she was complaining of discomfort in her vaginal/vulvar region. She reports that the symptoms today in her mouth are similar to the discomfort that she is experiencing in her vulvar region. Patient reports that she has been having generalized malaise, fevers of 101 at home, nausea with no vomiting, decreased appetite, body aches for the last 3 to 4 days. Patient denies any abdominal pain or chest pain. Patient denies any shortness of breath. Patient denies any melena or bright red blood per rectum. Patient denies any diarrhea or GI symptoms. Patient denies any history of herpes in the past. Review of systems: As per history of present illness and below otherwise all systems reviewed and negative. Past medical history: As per history of present illness and as reviewed below otherwise noncontributory. Surgical history: As per history of present illness and as reviewed below otherwise noncontributory. Social history: No reported history of drug or alcohol abuse. Family history: As per history of present illness and as reviewed below otherwise noncontributory. Physical exam: Constitutional: Patient is oriented to person, place, and time. Appears well- developed and well-nourished. No distress. HEENT: Moist mucous membranes Head: Normocephalic and atraumatic Eyes: Right eye exhibits no discharge. Left eye exhibits no discharge. No s cleral icterus Neck: Normal range of motion. No tracheal deviation present. Cardiovascular: Normal rate and regular rhythm. Pulmonary: Effort normal, no respiratory distress. Abdominal: No distention Musculoskeletal: Normal range of motion Neurologic: Alert and oriented to person, place and time. Skin: [place], warm and dry. Psychiatric: Normal mood and affect. Behavior is normal. Judgment and thought content normal. Nursing note and vital signs have been reviewed This patient was seen and evaluated during the 2019 SARS-CoV-2 novel coronavirus pandemic period. Community viral transmission is ongoing at time of this encounter and the emergency department is operating under pandemic response procedures. Patient's ER physical exam is significant for multiple ulcerative lesions i dentified on patient's lip and tongue. Patient has a significant amount of ulcerative lesions under the tongue and a few patches on the mucosa of her inner cheeks. Patient reports she has been having pain and difficulty with swallowing. Patient's vaginal exam reveals multiple ulcerative lesions on her vaginal mucosa. Tender to palpation. Excoriated with some bleeding. Diagnostics: Therapeutics: Morphine Assessment and plan: This is a 60-year-old female who presents to the ER today secondary to pain in her mouth and difficulty swallowing and eating. On exam patient has ulcerative lesions in her mouth and vaginal region. Patient has no rash identified on her skin. Patient was recently started on Macrobid which resulted in a rash to her body that resolved after stopping the Macrobid. Patient with subsequently placed on Bactrim and has taken 3 doses thus far. Patient reports that this evening she started developing pain and discomfort to her mouth and throat and is having a significant amount of pain with swallowing. This appears to be likely an allergic reaction to the Bactrim versus the Macrobid. 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 Swabs have been taken from the oral lesions and they have been sent up for herpetic cultures. Utilizing the Scorten scale, pt has a score of 1 giving her a mortality of 3.2% SCORTEN SCALE FOR SJ Syndrome/TEN Risk factor 0 1 Age < 40 years > 40 years Associated malignancy no yes Heart rate (beats/min) <120 >120 Serum BUN (mg/dL) <28 >28 Detached or compromised body surface <10% >10% Serum bicarbonate (mEq/L) >20 <20 Serum glucose (mg/dL) <252 >252 The more risk factors present, the higher the SCORTEN score, and the higher the mortality rate, as shown in the following table. No of risk factors Mortality rate 0-1 3.2% 2 12.1% 3 35.3% 4 58.3% 5 or more >90% I have discussed the case with Dr. Ramos who is agreed to assist with observation level of care for the patient. We will start the patient on Solu- Medrol 125 mg IV as well as hydration. Patient reports that she feels significantly improved after the morphine for the pain. Definitive disposition and diagnosis as appropriate pending reevaluation and review of above. throat Pain Score (Numeric/FACES): 7 oral and vaginal Pain Score (Numeric/FACES): 7 - Related Data Allergies Allergy/AdvReac Type Severity Reaction Status Date / Time nitrofurantoin Allergy Rash Verified 12/10/20 09:14 sulfamethoxazole Allergy Other Verified 12/10/20 09:14 [From Bactrim] trimethoprim [From Bactrim] Allergy Other Verified 12/10/20 09:14 Home Meds: Home Meds ALPRAZolam [Alprazolam] 0.5 mg PO DAILY 11/03/19 [History] busPIRone [Buspar] 15 mg PO BID 11/03/19 [History] Fluticasone Propion/Salmeterol [Advair 250-50 Diskus] 1 each IH DAILY 30 Days #1 blst.w.dev 07/01/20 [Rx] Acyclovir 400 mg PO TID #21 tablet 12/13/20 [Rx] Past Medical History HEENT History: Reports: None Cardiovascular History: Reports: None Respiratory History: Reports: COPD Gastrointestinal History: Reports: None Genitourinary History: Reports: UTI, Recurrent Musculoskeletal History: Reports: None Neurological History: Reports: None Psychiatric History: Reports: Anxiety Endocrine/Metabolic History: Reports: None Insulin Pump Model and Time Analysis Clerk: None Hematologic History: Reports: None Immunologic History: Reports: None Oncologic (Cancer) History: Reports: None Dermatologic History: Reports: Eczema - Infectious Disease History Infectious Disease History: Reports: None - Past Surgical History Head Surgeries/Procedures: Reports: None Female Surgical History: Reports: Hysterectomy Social & Family History - Family History Family Medical History: No Pertinent Family History - Tobacco Use Tobacco Use Status *Q: Former Tobacco User Used Tobacco, but Quit: No - Caffeine Use Caffeine Use: Reports: Coffee, Soda - Recreational Drug Use Recreational Drug Use: No ED ROS GENERAL - Review of Systems Review Of Systems: See Below ED EXAM, GENERAL - Physical Exam Exam: See Below Course - Vital Signs Last Recorded V/S: Last Vital Signs Temp 97.2 F 12/13/20 16:05 Pulse 48 L 12/13/20 16:05 Resp 12 12/13/20 16:05 BP 108/57 L 12/13/20 16:05 Pulse Ox 94 L 12/13/20 16:05 - Orders/Labs/Meds Labs: Laboratory Tests 12/10/20 12/10/20 12/10/20 Range/Units 04:15 04:15 05:25 WBC 14.70 H (4.0-11.0) K/uL RBC 4.45 (4.30-5.90) M/uL Hgb 14.0 (12.0-16.0) g/dL Hct 41.5 (36.0-46.0) % MCV 93.3 (80.0-98.0) fL MCH 31.5 (27.0-32.0) pg MCHC 33.7 (31.0-37.0) g/dL RDW Std Deviation 46.9 (28.0-62.0) fl RDW Coeff of Malik 14 (11.0-15.0) % Plt Count 278 (150-400) K/uL MPV 9.60 (7.40-12.00) fL Neut % (Auto) 77.0 (48.0-80.0) % Lymph % (Auto) 8.6 L (16.0-40.0) % [place] % (Auto) 7.3 (0.0-15.0) % Eos % (Auto) 7.0 (0.0-7.0) % Baso % (Auto) 0.1 (0.0-1.5) % Neut # (Auto) 11.3 H (1.4-5.7) K/uL Lymph # (Auto) 1.3 (0.6-2.4) K/uL [place] # (Auto) 1.1 H (0.0-0.8) K/uL Eos # (Auto) 1.0 H (0.0-0.7) K/uL Baso # (Auto) 0.0 (0.0-0.1) K/uL Nucleated RBC % 0.0 /100WBC Nucleated RBCs # 0 K/uL Sodium 137 (136-145) mmol/L Potassium 4.4 (3.5-5.1) mmol/L Chloride 101 (98-107) mmol/L Carbon Dioxide 25.7 (21.0-32.0) mmol/L BUN 19 H (7.0-18.0) mg/dL Creatinine 1.2 H (0.6-1.0) mg/dL Est Cr Clr Drug Dosing 37.15 mL/min Estimated GFR (MDRD) 45.7 ml/min Glucose 117 H (74-106) mg/dL Calcium 8.7 (8.5-10.1) mg/dL Total Bilirubin 0.7 (0.2-1.0) mg/dL AST 16 (15-37) IU/L ALT 31 (14-63) IU/L Alkaline Phosphatase 60 (46-116) U/L Total Protein 7.4 (6.4-8.2) g/dL Albumin 3.7 (3.4-5.0) g/dL Globulin 3.7 (2.6-4.0) g/dL Albumin/Globulin Ratio 1.0 (0.9-1.6) Urine Color Urine Appearance Urine pH (5.0-8.0) Ur Specific [place] (1.001-1.035) Urine Protein (NEGATIVE) mg/dL Urine Glucose (UA) (NEGATIVE) mg/dL Urine Ketones (NEGATIVE) mg/dL Urine Occult Blood (NEGATIVE) Urine Nitrite (NEGATIVE) Urine Bilirubin (NEGATIVE) Urine Urobilinogen (<2.0) EU/dL Ur Leukocyte Esterase (NEGATIVE) Urine RBC (0-2/HPF) Urine WBC (0-5/HPF) Ur Epithelial Cells (NONE-FEW) Amorphous Sediment (NEGATIVE) Urine Bacteria (NEGATIVE) Urine Mucus (NONE-MOD) Humera species DNA (NEGATIVE) Gardnerella DNA Probe (NEGATIVE) HIV 1&2 Ag/Ab, 4th Gen (<1.0) INDEX SARS-CoV-2 RNA (KINGSLEY) NEGATIVE (NEGATIVE) Group A Strep (PCR) (NOT DETECT) Trichomonas DNA Probe (NEGATIVE) 02/18/21 02/18/21 02/19/21 Range/Units 15:10 15:15 05:28 WBC 14.71 H (4.0-11.0) K/uL RBC 3.85 L (4.30-5.90) M/uL Hgb 12.0 (12.0-16.0) g/dL Hct 36.3 (36.0-46.0) % MCV 94.3 (80.0-98.0) fL MCH 31.2 (27.0-32.0) pg MCHC 33.1 (31.0-37.0) g/dL RDW Std Deviation 46.9 (28.0-62.0) fl RDW Coeff of Malik 14 (11.0-15.0) % Plt Count 268 (150-400) K/uL MPV 9.50 (7.40-12.00) fL Neut % (Auto) 81.2 H (48.0-80.0) % Lymph % (Auto) 14.3 L (16.0-40.0) % [place] % (Auto) 4.1 (0.0-15.0) % Eos % (Auto) 0.3 (0.0-7.0) % Baso % (Auto) 0.1 (0.0-1.5) % Neut # (Auto) 11.9 H (1.4-5.7) K/uL Lymph # (Auto) 2.1 (0.6-2.4) K/uL [place] # (Auto) 0.6 (0.0-0.8) K/uL Eos # (Auto) 0.0 (0.0-0.7) K/uL Baso # (Auto) 0.0 (0.0-0.1) K/uL Nucleated RBC % 0.0 /100WBC Nucleated RBCs # 0 K/uL Sodium (136-145) mmol/L Potassium (3.5-5.1) mmol/L Chloride (98-107) mmol/L Carbon Dioxide (21.0-32.0) mmol/L BUN (7.0-18.0) mg/dL Creatinine (0.6-1.0) mg/dL Est Cr Clr Drug Dosing mL/min Estimated GFR (MDRD) ml/min Glucose (74-106) mg/dL Calcium (8.5-10.1) mg/dL Total Bilirubin (0.2-1.0) mg/dL AST (15-37) IU/L ALT (14-63) IU/L Alkaline Phosphatase (46-116) U/L Total Protein (6.4-8.2) g/dL Albumin (3.4-5.0) g/dL Globulin (2.6-4.0) g/dL Albumin/Globulin Ratio (0.9-1.6) Urine Color YELLOW Urine Appearance CLEAR Urine pH 5.5 (5.0-8.0) Ur Specific [place] 1.020 (1.001-1.035) Urine Protein NEGATIVE (NEGATIVE) mg/dL Urine Glucose (UA) NEGATIVE (NEGATIVE) mg/dL Urine Ketones 15 H (NEGATIVE) mg/dL Urine Occult Blood MODERATE H (NEGATIVE) Urine Nitrite NEGATIVE (NEGATIVE) Urine Bilirubin NEGATIVE (NEGATIVE) Urine Urobilinogen 0.2 (<2.0) EU/dL Ur Leukocyte Esterase TRACE H (NEGATIVE) Urine RBC 1-3 (0-2/HPF) Urine WBC 2-5 (0-5/HPF) Ur Epithelial Cells FEW (NONE-FEW) Amorphous Sediment FEW (NEGATIVE) Urine Bacteria FEW (NEGATIVE) Urine Mucus FEW (NONE-MOD) Humera species DNA (NEGATIVE) Gardnerella DNA Probe (NEGATIVE) HIV 1&2 Ag/Ab, 4th Gen (<1.0) INDEX SARS-CoV-2 RNA ([place]LEY) (NEGATIVE) Group A Strep (PCR) NOT DETECTED (NOT DETECT) Trichomonas DNA Probe (NEGATIVE) 12/11/20 12/11/20 12/12/20 Range/Units 05:28 13:00 06:05 WBC 9.83 (4.0-11.0) K/uL RBC 3.48 L (4.30-5.90) M/uL Hgb 10.8 L (12.0-16.0) g/dL Hct 32.9 L (36.0-46.0) % MCV 94.5 (80.0-98.0) fL MCH 31.0 (27.0-32.0) pg MCHC 32.8 (31.0-37.0) g/dL RDW Std Deviation 48.2 (28.0-62.0) fl RDW Coeff of Malik 14 (11.0-15.0) % Plt Count 279 (150-400) K/uL MPV 9.60 (7.40-12.00) fL Neut % (Auto) 76.6 (48.0-80.0) % Lymph % (Auto) 15.5 L (16.0-40.0) % [place] % (Auto) 7.8 (0.0-15.0) % Eos % (Auto) 0.0 (0.0-7.0) % Baso % (Auto) 0.1 (0.0-1.5) % Neut # (Auto) 7.5 H (1.4-5.7) K/uL Lymph # (Auto) 1.5 (0.6-2.4) K/uL [place] # (Auto) 0.8 (0.0-0.8) K/uL Eos # (Auto) 0.0 (0.0-0.7) K/uL Baso # (Auto) 0.0 (0.0-0.1) K/uL Nucleated RBC % 0.0 /100WBC Nucleated RBCs # 0 K/uL Sodium 141 (136-145) mmol/L Potassium 4.6 (3.5-5.1) mmol/L Chloride 105 (98-107) mmol/L Carbon Dioxide 26.0 (21.0-32.0) mmol/L BUN 16 (7.0-18.0) mg/dL Creatinine 0.9 (0.6-1.0) mg/dL Est Cr Clr Drug Dosing 49.53 mL/min Estimated GFR (MDRD) > 60.0 ml/min Glucose 144 H (74-106) mg/dL Calcium 8.1 L (8.5-10.1) mg/dL Total Bilirubin 0.3 (0.2-1.0) mg/dL AST 14 L (15-37) IU/L ALT 25 (14-63) IU/L Alkaline Phosphatase 50 (46-116) U/L Total Protein 6.4 (6.4-8.2) g/dL Albumin 3.0 L (3.4-5.0) g/dL Globulin 3.4 (2.6-4.0) g/dL Albumin/Globulin Ratio 0.9 (0.9-1.6) Urine Color Urine Appearance Urine pH (5.0-8.0) Ur Specific [place] (1.001-1.035) Urine Protein (NEGATIVE) mg/dL Urine Glucose (UA) (NEGATIVE) mg/dL Urine Ketones (NEGATIVE) mg/dL Urine Occult Blood (NEGATIVE) Urine Nitrite (NEGATIVE) Urine Bilirubin (NEGATIVE) Urine Urobilinogen (<2.0) EU/dL Ur Leukocyte Esterase (NEGATIVE) Urine RBC (0-2/HPF) Urine WBC (0-5/HPF) Ur Epithelial Cells (NONE-FEW) Amorphous Sediment (NEGATIVE) Urine Bacteria (NEGATIVE) Urine Mucus (NONE-MOD) Humera species DNA NEGATIVE (NEGATIVE) Gardnerella DNA Probe NEGATIVE (NEGATIVE) HIV 1&2 Ag/Ab, 4th Gen (<1.0) INDEX SARS-CoV-2 RNA ([place]LEY) (NEGATIVE) Group A Strep (PCR) (NOT DETECT) Trichomonas DNA Probe NEGATIVE (NEGATIVE) 12/12/20 12/12/20 12/13/20 Range/Units 06:05 06:05 05:48 WBC 7.59 (4.0-11.0) K/uL RBC 3.63 L (4.30-5.90) M/uL Hgb 11.3 L (12.0-16.0) g/dL Hct 34.2 L (36.0-46.0) % MCV 94.2 (80.0-98.0) fL MCH 31.1 (27.0-32.0) pg MCHC 33.0 (31.0-37.0) g/dL RDW Std Deviation 47.5 (28.0-62.0) fl RDW Coeff of Malik 14 (11.0-15.0) % Plt Count 299 (150-400) K/uL MPV 9.90 (7.40-12.00) fL Neut % (Auto) 71.2 (48.0-80.0) % Lymph % (Auto) 21.7 (16.0-40.0) % [place] % (Auto) 7.1 (0.0-15.0) % Eos % (Auto) 0.0 (0.0-7.0) % Baso % (Auto) 0.0 (0.0-1.5) % Neut # (Auto) 5.4 (1.4-5.7) K/uL Lymph # (Auto) 1.7 (0.6-2.4) K/uL [place] # (Auto) 0.5 (0.0-0.8) K/uL Eos # (Auto) 0.0 (0.0-0.7) K/uL Baso # (Auto) 0.0 (0.0-0.1) K/uL Nucleated RBC % 0.0 /100WBC Nucleated RBCs # 0 K/uL Sodium 141 (136-145) mmol/L Potassium 4.6 (3.5-5.1) mmol/L Chloride 106 (98-107) mmol/L Carbon Dioxide 26.7 (21.0-32.0) mmol/L BUN 23 H (7.0-18.0) mg/dL Creatinine 0.9 (0.6-1.0) mg/dL Est Cr Clr Drug Dosing 49.53 mL/min Estimated GFR (MDRD) > 60.0 ml/min Glucose 136 H (74-106) mg/dL Calcium 8.0 L (8.5-10.1) mg/dL Total Bilirubin 0.3 (0.2-1.0) mg/dL AST 51 H (15-37) IU/L ALT 83 H (14-63) IU/L Alkaline Phosphatase 47 (46-116) U/L Total Protein 5.4 L (6.4-8.2) g/dL Albumin 2.5 L (3.4-5.0) g/dL Globulin 2.9 (2.6-4.0) g/dL Albumin/Globulin Ratio 0.9 (0.9-1.6) Urine Color Urine Appearance Urine pH (5.0-8.0) Ur Specific [place] (1.001-1.035) Urine Protein (NEGATIVE) mg/dL Urine Glucose (UA) (NEGATIVE) mg/dL Urine Ketones (NEGATIVE) mg/dL Urine Occult Blood (NEGATIVE) Urine Nitrite (NEGATIVE) Urine Bilirubin (NEGATIVE) Urine Urobilinogen (<2.0) EU/dL Ur Leukocyte Esterase (NEGATIVE) Urine RBC (0-2/HPF) Urine WBC (0-5/HPF) Ur Epithelial Cells (NONE-FEW) Amorphous Sediment (NEGATIVE) Urine Bacteria (NEGATIVE) Urine Mucus (NONE-MOD) Humera species DNA (NEGATIVE) Gardnerella DNA Probe (NEGATIVE) HIV 1&2 Ag/Ab, 4th Gen 0.1 (<1.0) INDEX SARS-CoV-2 RNA ([place]LEY) (NEGATIVE) Group A Strep (PCR) (NOT DETECT) Trichomonas DNA Probe (NEGATIVE) 12/13/20 Range/Units 05:48 WBC (4.0-11.0) K/uL RBC (4.30-5.90) M/uL Hgb (12.0-16.0) g/dL Hct (36.0-46.0) % MCV (80.0-98.0) fL MCH (27.0-32.0) pg MCHC (31.0-37.0) g/dL RDW Std Deviation (28.0-62.0) fl RDW Coeff of Malik (11.0-15.0) % Plt Count (150-400) K/uL MPV (7.40-12.00) fL Neut % (Auto) (48.0-80.0) % Lymph % (Auto) (16.0-40.0) % [place] % (Auto) (0.0-15.0) % Eos % (Auto) (0.0-7.0) % Baso % (Auto) (0.0-1.5) % Neut # (Auto) (1.4-5.7) K/uL Lymph # (Auto) (0.6-2.4) K/uL [place] # (Auto) (0.0-0.8) K/uL Eos # (Auto) (0.0-0.7) K/uL Baso # (Auto) (0.0-0.1) K/uL Nucleated RBC % /100WBC Nucleated RBCs # K/uL Sodium 141 (136-145) mmol/L Potassium 4.3 (3.5-5.1) mmol/L Chloride 107 (98-107) mmol/L Carbon Dioxide 25.4 (21.0-32.0) mmol/L BUN 27 H (7.0-18.0) mg/dL Creatinine 0.8 (0.6-1.0) mg/dL Est Cr Clr Drug Dosing 55.73 mL/min Estimated GFR (MDRD) > 60.0 ml/min Glucose 126 H (74-106) mg/dL Calcium 7.8 L (8.5-10.1) mg/dL Total Bilirubin 0.4 (0.2-1.0) mg/dL AST 31 (15-37) IU/L ALT 67 H (14-63) IU/L Alkaline Phosphatase 44 L (46-116) U/L Total Protein 5.2 L (6.4-8.2) g/dL Albumin 2.5 L (3.4-5.0) g/dL Globulin 2.7 (2.6-4.0) g/dL Albumin/Globulin Ratio 0.9 (0.9-1.6) Urine Color Urine Appearance Urine pH (5.0-8.0) Ur Specific [place] (1.001-1.035) Urine Protein (NEGATIVE) mg/dL Urine Glucose (UA) (NEGATIVE) mg/dL Urine Ketones (NEGATIVE) mg/dL Urine Occult Blood (NEGATIVE) Urine Nitrite (NEGATIVE) Urine Bilirubin (NEGATIVE) Urine Urobilinogen (<2.0) EU/dL Ur Leukocyte Esterase (NEGATIVE) Urine RBC (0-2/HPF) Urine WBC (0-5/HPF) Ur Epithelial Cells (NONE-FEW) Amorphous Sediment (NEGATIVE) Urine Bacteria (NEGATIVE) Urine Mucus (NONE-MOD) Humera species DNA (NEGATIVE) Gardnerella DNA Probe (NEGATIVE) HIV 1&2 Ag/Ab, 4th Gen (<1.0) INDEX SARS-CoV-2 RNA ([place]) (NEGATIVE) Group A Strep (PCR) (NOT DETECT) Trichomonas DNA Probe (NEGATIVE) Meds: Medications Discontinued Medications Generic Name Dose Route Start Last Admin Trade Name Albert PRN Reason Stop Dose Admin Acetaminophen 650 mg 12/10/20 07:10 12/13/20 12:47 Tylenol PO 650 mg Q4H PRN Administration Pain (Mild 1-3)/fever Alprazolam 0.5 mg 12/10/20 09:00 12/12/20 16:30 Xanax PO 0.5 mg DAILY PRN Administration Anxiety Benzocaine 2 each 12/10/20 18:00 12/11/20 14:26 Hurricaine One 20% MUCMEM 2 each Q2H PRN Administration Pain Buspirone HCl 15 mg 12/10/20 09:00 12/13/20 08:12 Buspar PO 15 mg BID SARAH Administration Diphenhydr/Magaldrate/Simeth/Lidoca 10 ml 12/12/20 10:31 First-Mouthwash Blm PO ASDIRECTED PRN Pain Diphenhydr/Magaldrate/Simeth/Lidoca 10 ml 12/12/20 10:45 12/13/20 10:35 First-Mouthwash Blm PO 10 ml Q6H PRN Administration Pain Diphenhydr/Magaldrate/Simeth/Lidoca 10 ml 12/10/20 08:30 12/10/20 15:01 First-Mouthwash Blm PO 10 ml Q6H PRN Administration oral mucositis Docusate Sodium 100 mg 12/12/20 16:17 12/13/20 12:59 Colace PO 100 mg BID PRN Administration Constipation Enoxaparin Sodium 40 mg 12/11/20 09:00 12/13/20 08:13 Lovenox SUBCUT 40 mg Q24H SARAH Administration Ceftriaxone Sodium 1 gm/ 50 mls @ 100 mls/hr 12/10/20 18:00 12/10/20 19:02 Sodium Chloride IV Not Given Q24H SARAH Ceftriaxone Sodium/Dextrose 50 mls @ 100 mls/hr 12/10/20 19:00 12/11/20 18:30 Rocephin In Dextrose,Iso-Osm 1 Gm/50 Ml IV 100 mls/hr Q24H SARAH Administration Pantoprazole Sodium 40 mg/ 10 mls @ 300 mls/hr 12/11/20 17:15 12/13/20 08:13 Sodium Chloride IV 300 mls/hr DAILY SARHA Administration Acyclovir 450 mg/ Sodium 109 mls @ 100 mls/hr 12/12/20 11:00 12/12/20 14:02 Chloride IV Not Given Q12H SARAH Acyclovir 450 mg/ Sodium 109 mls @ 109 mls/hr 12/12/20 12:30 12/13/20 12:50 Chloride IV 109 mls/hr Q12H SARAH Administration Sodium Chloride 1,000 mls @ 999 mls/hr 12/10/20 04:08 12/10/20 04:18 Normal Saline IV 12/10/20 05:08 999 mls/hr .Bolus ONE Administration Sodium Chloride 1,000 mls @ 999 mls/hr 12/10/20 06:30 12/10/20 06:35 Normal Saline IV 12/10/20 07:30 999 mls/hr NOW STA Administration Lactated Ringer's 1,000 mls @ 75 mls/hr 12/10/20 07:30 12/10/20 12:50 Ringers, Lactated IV 12/10/20 20:49 200 mls/hr ASDIRECTED SARAH Infusion Lactated Ringer's 1,000 mls @ 125 mls/hr 12/10/20 11:45 12/13/20 15:56 Ringers, Lactated IV Not Given Q5H SARAH Acyclovir 300 mg/ Sodium 106 mls @ 100 mls/hr 12/10/20 12:30 12/12/20 00:16 Chloride IV 100 mls/hr Q12H SARAH Administration Ibuprofen 400 mg 12/11/20 17:11 Motrin PO Q6H PRN Pain Ibuprofen 400 mg 12/11/20 18:15 12/13/20 14:25 Motrin PO 400 mg Q6H PRN Administration Pain Lidocaine HCl 15 ml 12/10/20 17:45 Xylocaine 2% Viscous PO 12/10/20 17:46 Q2H PRN Pain Lidocaine HCl 15 ml 12/10/20 18:00 12/11/20 14:26 Xylocaine 2% Viscous PO 15 ml Q2H PRN Administration Pain Lidocaine HCl 1 gm 12/11/20 18:03 12/11/20 18:20 Lidocaine 5% TOP 12/11/20 18:04 Not Given ONETIME ONE Lidocaine HCl 0 gm 12/11/20 18:08 Lidocaine 5% TOP BID PRN Other Methylprednisolone Sodium Succinate 40 mg 12/12/20 10:15 12/13/20 10:07 Solu-Medrol IV 40 mg Q12H SARAH Administration Methylprednisolone Sodium Succinate 125 mg 12/10/20 04:56 12/10/20 05:05 Solu-Medrol IVPUSH 12/10/20 04:57 125 mg ONETIME ONE Administration Methylprednisolone Sodium Succinate 40 mg 12/10/20 12:00 12/12/20 03:14 Solu-Medrol IV 40 mg Q8H SARAH Administration Morphine Sulfate 1 mg 12/11/20 18:32 12/12/20 00:08 Morphine IVPUSH 12/11/20 18:33 Not Given ONETIME ONE Morphine Sulfate 1 mg 12/11/20 23:34 12/12/20 00:07 Morphine IVPUSH 12/11/20 23:35 1 mg ONETIME ONE Administration Morphine Sulfate 4 mg 12/10/20 04:08 12/10/20 04:18 Morphine IVPUSH 12/10/20 04:09 4 mg ONETIME ONE Administration Morphine Sulfate 2 mg 12/10/20 08:00 12/10/20 19:11 Morphine IVPUSH 2 mg Q4H PRN Administration Pain (moderate 4-6) Ondansetron HCl 4 mg 12/10/20 04:08 12/10/20 04:18 Zofran IVPUSH 12/10/20 04:09 4 mg ONETIME ONE Administration Ondansetron HCl 4 mg 12/10/20 07:10 Zofran IVPUSH Q4H PRN Nausea Sodium Chloride 10 ml 12/10/20 04:08 12/10/20 04:19 Saline Flush FLUSH 10 ml ASDIRECTED PRN Administration Keep Vein Open Sodium Chloride 2.5 ml 12/10/20 04:08 12/13/20 10:08 Saline Flush FLUSH 2.5 ml ASDIRECTED PRN Administration Keep Vein Open Departure - Departure Time of Disposition: 05:17 Disposition: Refer to Observation Condition: Good Clinical Impression: Benz-Caesar syndrome, Aphthous ulcer of mouth, Vaginal aphthous ulcer, Allergy to trimethoprim/sulfamethoxazole Drug reaction Qualifiers: Encounter type: initial encounter Qualified Code(s): T50.905A - Adverse effect of unspecified drugs, medicaments and biological substances, initial encounter - Discharge Information Sepsis Event Note (ED) - Evaluation Sepsis Screening Result: No Definite Risk
[2020-12-10] MEDS ORDERED: methylPREDNISolone Sodium Succinate 125 MG/2 ML SDV IVPUSH ONE (04:56)
[2020-12-10] MEDS ORDERED: Sodium Chloride 0.9% 1,000 ML IV STA (06:30)
[2020-12-10] MEDS ORDERED: Ondansetron 4 MG/2 ML SDV IVPUSH PRN (07:10)
[2020-12-10] MEDS ORDERED: Lactated Ringers 1,000 ML IV SCH (07:30)
--- NOTE | 2020-12-10 08:01 | PCM.HP.2 ---
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 She has a PMH of COPD and anxiety. Patient reports that approximately 3-4 days ago she was started on nitrofurantoin to treat a UTI. She then shortly developed a rash on her left thigh that resolved within 1 day. She was advised by her PCP to discontinue nitrofurantoin and was then started on bactrim. After starting bactrim she developed painful vaginal lesions that hurt when she urinates. She then developed painful mouth sores yesterday. Due to the pain, she has not been able to eat or drink very much. She complains of a sore throat, fatigue, body aches, nausea and fever. She denies having any chills, cough, SOB, chest pain, vomiting, abdominal pain, diarrhea, bloody stool, numbness or tingling in extremities. She quit smoking tobacco, drinks alcohol occasionally and denies any illicit drug use. In the ER, WBC 14,000, creatinine 1.2, COVID-19 test negative. Patient was given IV morphine, zofran, solumedrol 125 mg and given 2 L IV NS bolus. Patient admitted for further evaluation and treatment. throat Pain Score (Numeric/FACES): 7 oral and vaginal Pain Score (Numeric/FACES): 7 - Related Data Allergies/Adverse Reactions: Allergies Allergy/AdvReac Type Severity Reaction Status Date / Time nitrofurantoin Allergy Rash Verified 12/10/20 09:14 sulfamethoxazole Allergy Other Verified 12/10/20 09:14 [From Bactrim] trimethoprim [From Bactrim] Allergy Other Verified 12/10/20 09:14 Home Medications: Home Meds ALPRAZolam [Alprazolam] 0.5 mg PO DAILY 11/03/19 [History] busPIRone [Buspar] 15 mg PO BID 11/03/19 [History] Fluticasone Propion/Salmeterol [Advair 250-50 Diskus] 1 each IH DAILY 30 Days #1 blst.w.dev 07/01/20 [Rx] Acyclovir 400 mg PO TID #21 tablet 12/13/20 [Rx] Past Medical History HEENT History: Reports: None Cardiovascular History: Reports: None Respiratory History: Reports: COPD Gastrointestinal History: Reports: None Genitourinary History: Reports: UTI, Recurrent Musculoskeletal History: Reports: None Neurological History: Reports: None Psychiatric History: Reports: Anxiety Endocrine/Metabolic History: Reports: None Insulin Pump Model and Varnish Filterer: None Hematologic History: Reports: None Immunologic History: Reports: None Oncologic (Cancer) History: Reports: None Dermatologic History: Reports: Eczema - Infectious Disease History Infectious Disease History: Reports: None - Past Surgical History Head Surgeries/Procedures: Reports: None Female Surgical History: Reports: Hysterectomy Social & Family History - Family History Family Medical History: No Pertinent Family History - Tobacco Use Tobacco Use Status *Q: Former Tobacco User Used Tobacco, but Quit: No - Caffeine Use Caffeine Use: Reports: Coffee, Soda - Recreational Drug Use Recreational Drug Use: No H&P Review of Systems - Review of Systems: Review Of Systems: Comprehensive ROS is negative, except as noted in HPI. Exam - Exam Exam: See Below - Vital Signs Vital Signs: Last Vital Signs Temp 36.3 C 12/10/20 07:31 Pulse 68 12/10/20 07:31 Resp 16 12/10/20 07:31 BP 101/67 12/10/20 07:31 Pulse Ox 93 L 12/10/20 07:31 Weight: 58.06 kg - Exam General: Alert, Oriented, Cooperative, Mild Distress HEENT: Conjunctiva Clear, EOMI, Hearing Intact, Pupils Equal, Pupils Reactive, Other (No conjunctival injection, no eye discharge b/l. Multiple scattered 1 mm x 1mm ulcerative lesions on lips, tongue and inside both cheeks.) Neck: Supple, Trachea Midline Lungs: Clear to Auscultation, Normal Respiratory Effort Cardiovascular: Regular Rate, Regular Rhythm GI/Abdominal Exam: Normal Bowel Sounds, Soft, Non-Tender, No Distention (Female) Exam: Other (Multiple scattered 1 mm x 1 mm ulcerative lesions on labia minora and vaginal mucosa.) Extremities: Normal Inspection, No Pedal Edema Peripheral Pulses: 2+: Radial (L), Radial (R) Skin: Warm, Dry, Intact Neurological: Cranial Nerves Intact, Strength Equal Bilateral, Normal Speech, Normal Tone Neuro Extensive - Mental Status: Alert, Oriented x3, Normal Mood/Affect Psychiatric: Alert, Normal Affect, Normal Mood - Patient Data Lab Results Last 24 hrs: Laboratory Results - last 24 hr 12/10/20 12/10/20 12/10/20 Range/Units 04:15 04:15 05:25 WBC 14.70 H (4.0-11.0) K/uL RBC 4.45 (4.30-5.90) M/uL Hgb 14.0 (12.0-16.0) g/dL Hct 41.5 (36.0-46.0) % MCV 93.3 (80.0-98.0) fL MCH 31.5 (27.0-32.0) pg MCHC 33.7 (31.0-37.0) g/dL RDW Std Deviation 46.9 (28.0-62.0) fl RDW Coeff of Malik 14 (11.0-15.0) % Plt Count 278 (150-400) K/uL MPV 9.60 (7.40-12.00) fL Neut % (Auto) 77.0 (48.0-80.0) % Lymph % (Auto) 8.6 L (16.0-40.0) % [place] % (Auto) 7.3 (0.0-15.0) % Eos % (Auto) 7.0 (0.0-7.0) % Baso % (Auto) 0.1 (0.0-1.5) % Neut # (Auto) 11.3 H (1.4-5.7) K/uL Lymph # (Auto) 1.3 (0.6-2.4) K/uL [place] # (Auto) 1.1 H (0.0-0.8) K/uL Eos # (Auto) 1.0 H (0.0-0.7) K/uL Baso # (Auto) 0.0 (0.0-0.1) K/uL Nucleated RBC % 0.0 /100WBC Nucleated RBCs # 0 K/uL Sodium 137 (136-145) mmol/L Potassium 4.4 (3.5-5.1) mmol/L Chloride 101 (98-107) mmol/L Carbon Dioxide 25.7 (21.0-32.0) mmol/L BUN 19 H (7.0-18.0) mg/dL Creatinine 1.2 H (0.6-1.0) mg/dL Est Cr Clr Drug Dosing 37.15 mL/min Estimated GFR (MDRD) 45.7 ml/min Glucose 117 H (74-106) mg/dL Calcium 8.7 (8.5-10.1) mg/dL Total Bilirubin 0.7 (0.2-1.0) mg/dL AST 16 (15-37) IU/L ALT 31 (14-63) IU/L Alkaline Phosphatase 60 (46-116) U/L Total Protein 7.4 (6.4-8.2) g/dL Albumin 3.7 (3.4-5.0) g/dL Globulin 3.7 (2.6-4.0) g/dL Albumin/Globulin Ratio 1.0 (0.9-1.6) SARS-CoV-2 RNA (KINGSLEY) NEGATIVE (NEGATIVE) Result Diagrams: 12/10/20 04:15 12/10/20 04:15 Sepsis Event Note - Evaluation Sepsis Screening Result: No Definite Risk - Focused Exam Vital Signs: Vital Signs Temp Temp Pulse Resp BP BP Pulse Ox 12/10/20 07:31 36.3 C 68 16 101/67 93 L 12/10/20 07:09 36.3 C 73 17 130/68 96 12/10/20 06:30 36.9 C 74 18 94/40 L 94 L 12/10/20 05:07 36.1 C 71 18 97/54 L 94 L 12/10/20 03:35 36.2 C 88 18 101/56 L 95 - Problem List (2) Vaginal lesion SNOMED Code(s): 777601566 ICD Code: N89.8 - OTHER SPECIFIED NONINFLAMMATORY DISORDERS OF VAGINA Status: Acute (3) ETHAN (acute kidney injury) SNOMED Code(s): 42127014, 62022118 ICD Code: N17.9 - ACUTE KIDNEY FAILURE, UNSPECIFIED Status: Acute (4) Aphthous ulcer of mouth SNOMED Code(s): 053882419 ICD Code: K12.0 - RECURRENT ORAL APHTHAE Status: Acute (5) Anxiety SNOMED Code(s): 37723143 ICD Code: F41.9 - ANXIETY DISORDER, UNSPECIFIED Status: Acute (6) COPD (chronic obstructive pulmonary disease) SNOMED Code(s): 32529885 ICD Code: J44.9 - CHRONIC OBSTRUCTIVE PULMONARY DISEASE, UNSPECIFIED Status: Acute (7) Monsivais-Caesar syndrome SNOMED Code(s): 48725052 ICD Code: L51.1 - MONSIVAIS-CAESAR SYNDROME Status: Acute Problem List Initiated/Reviewed/Updated: Yes Orders Last 24hrs: Active Orders 24 hr Category Date Time Status Patient Status [ADT] Routine ADT 12/10/20 05:19 Active Antiembolic Devices [RC] PER UNIT ROUTINE Care 12/10/20 07:11 Active Oxygen Therapy [RC] PRN Care 12/10/20 07:10 Active Up ad Ena [RC] ASDIRECTED Care 12/10/20 07:10 Active VTE/DVT Education [RC] PER UNIT ROUTINE Care 12/10/20 07:10 Active Vital Signs [RC] Q4H Care 12/10/20 07:10 Active Clear Liquid Diet [DIET] Diet 12/10/20 Breakfast Active CBC WITH AUTO DIFF [HEME] AM Lab 12/11/20 05:11 Ordered COMPREHENSIVE METABOLIC PN,CMP [CHEM] AM Lab 12/11/20 05:11 Ordered HSV AMPLIFIED MOLECULAR [MREF] Stat Lab 12/10/20 04:20 Received HSV AMPLIFIED MOLECULAR [MREF] Stat Lab 12/10/20 04:20 Received UA RFX YUE AND CULT IF INDIC [URIN] Urgent Lab 12/10/20 07:32 Ordered Acetaminophen [TylenoL] Med 12/10/20 07:10 Active 650 mg PO Q4H PRN Alc/Diph/Lido/Mag Hydrox/Smc [First-Mouthwash BLM] Med 12/10/20 07:54 Once 5 ml PO ASDIRECTED ONE Lactated Ringers [Ringers, Lactated] 1,000 ml Med 12/10/20 07:30 Active IV ASDIRECTED Morphine Med 12/10/20 08:00 Active 2 mg IVPUSH Q4H PRN Ondansetron [Zofran] Med 12/10/20 07:10 Active 4 mg IVPUSH Q4H PRN Sodium Chloride 0.9% [Saline Flush] Med 12/10/20 04:08 Active 10 ml FLUSH ASDIRECTED PRN Sodium Chloride 0.9% [Saline Flush] Med 12/10/20 04:08 Active 2.5 ml FLUSH ASDIRECTED PRN Saline Lock Insert [OM.PC] Stat Oth 12/10/20 04:08 Ordered Sequential Compression Device [OM.PC] Per Unit Routine Oth 12/10/20 07:11 Ordered Code Status [Resuscitation Status] Routine Resus Stat 12/10/20 07:49 Ordered Medication Orders Acetaminophen (Tylenol) 650 mg PO Q4H PRN PRN Reason: Pain (Mild 1-3)/fever Diphenhydr/Magaldrate/Simeth/Lidoca (First-Mouthwash Blm) 5 ml PO ASDIRECTED ONE Stop: 12/10/20 07:55 Lactated Ringer's (Ringers, Lactated) 1,000 mls @ 75 mls/hr IV ASDIRECTED SARAH Stop: 12/10/20 20:49 Morphine Sulfate (Morphine) 2 mg IVPUSH Q4H PRN PRN Reason: Pain (moderate 4-6) Ondansetron HCl (Zofran) 4 mg IVPUSH Q4H PRN PRN Reason: Nausea Sodium Chloride (Saline Flush) 10 ml FLUSH ASDIRECTED PRN PRN Reason: Keep Vein Open Last Admin: 12/10/20 04:19 Dose: 10 ml Documented by: VIOLA Sodium Chloride (Saline Flush) 2.5 ml FLUSH ASDIRECTED PRN PRN Reason: Keep Vein Open Last Admin: 12/10/20 04:18 Dose: 2.5 ml Documented by: VIOLA Assessment/Plan Comment:: Assessment and Plan: 1. Oral and vaginal mucosal lesions secondary to drug reaction vs herpetic infection: - Admit to med/surg. Will start IV LR's @ 200 cc/hr, IV morphine 2 mg q4 prn pain, IV acyclovir, IV solumedrol 40 mg q8 and order dental balls. Will test for strep. Herpes culture pending at this time. - No other skin rashes or ocular involvement appreciated at this time. 2. ETHAN: - Patient on IV fluids. Will continue to monitor and recheck with AM labs. 3. Past medical history of COPD and anxiety: - Continue home medications. 4. DVT prophylaxis: - SCD's for now. <Hugo,Hooria - Last Filed: 12/15/20 11:07> H&P History of Present Illness - General Admit Problem/Dx: Admission Diagnosis/Problem Admission Diagnosis/Problem Monsivais-Caesar syndrome - History of Present Illness Initial Comments - Free Text/Narative: I have seen and evaluated the patient and agree with the residents note unless specified in my note Exam - Vital Signs Vital Signs: Last Vital Signs Temp 36.2 C 12/13/20 16:05 Pulse 48 L 12/13/20 16:05 Resp 12 12/13/20 16:05 BP 108/57 L 12/13/20 16:05 Pulse Ox 94 L 12/13/20 16:05 - Patient Data Result Diagrams: 12/13/20 05:48 12/13/20 05:48
[2020-12-10] MEDS: Morphine 2 MG/ML SYRINGE IVPUSH PRN ×3 (08:06→19:11)
[2020-12-10] MEDS: Al and Mag Hydroxide/Diphenhydramine/Lidocaine/Simethicone 237 ML Bottle PO PRN ×2 (09:16→15:01)
[2020-12-10] MEDS: busPIRone 5 MG Tab PO SCH ×2 (09:17→20:41)
[2020-12-10] MEDS: Lactated Ringers 1,000 ML IV SCH ×4 (12:25→23:28)
[2020-12-10] MEDS: Acetaminophen 325 MG Tab PO PRN ×3 (12:26→22:43)
[2020-12-10] MEDS ORDERED: Acyclovir 300 MG in Sodium Chloride 0.9% 100 ML IV SCH (12:30)
[2020-12-10] MEDS: methylPREDNISolone Sodium Succinate 40 MG/1 ML SDV IV SCH ×2 (12:32→20:41)
[2020-12-10] MEDS: Acyclovir 300 MG in Sodium Chloride 0.9% 100 ML IV SCH ×2 (12:44→23:56)
[2020-12-10] MEDS ORDERED: Non-Formulary Medication 1 Each PO PRN (17:41)
[2020-12-10] MEDS ORDERED: Lidocaine 2% Viscous Solution 15 ML Cup PO PRN (17:45)
[2020-12-10] MEDS ORDERED: cefTRIAXone 1 GM in Sodium Chloride 0.9% 50 ML IV SCH (18:00)
[2020-12-10] MEDS: Benzocaine 20% Topical Spray UD MUCMEM PRN ×2 (18:22→20:44)
[2020-12-10] MEDS: Lidocaine 2% Viscous Solution 15 ML Cup PO PRN ×2 (18:23→20:44)
[2020-12-10] MEDS: ALPRAZolam 0.5 MG Tab PO PRN (21:22)
[2020-12-11] MEDS: Benzocaine 20% Topical Spray UD MUCMEM PRN ×3 (02:55→14:26)
[2020-12-11] MEDS: Lidocaine 2% Viscous Solution 15 ML Cup PO PRN ×3 (02:56→14:26)
[2020-12-11] MEDS: methylPREDNISolone Sodium Succinate 40 MG/1 ML SDV IV SCH ×3 (03:00→20:08)
[2020-12-11] MEDS: Acetaminophen 325 MG Tab PO PRN ×5 (05:11→21:52)
[2020-12-11] MEDS: Lactated Ringers 1,000 ML IV SCH ×4 (05:15→18:29)
[2020-12-11 06:11] LABS: BLOOD UREA NITROGEN,BUN 16 mg/dL (7.0-18.0); CHLORIDE,CL 105 mmol/L (98-107); GLUCOSE RANDOM 144 mg/dL (74-106); POTASSIUM,K 4.6 mmol/L (3.5-5.1); SODIUM,NA 141 mmol/L (136-145)
[2020-12-11] MEDS: busPIRone 5 MG Tab PO SCH ×2 (08:19→20:08)
--- NOTE | 2020-12-11 08:49 | PCM.PN ---
- General Info Date of Service: 12/11/20 Subjective Update: Reports oral pain has improved slightly since last night and would like to try eating something. Reports urinating more overnight. Denies any fevers, chills, SOB or chest pain. - Patient Data Vitals - Most Recent: Last Vital Signs Temp 35.9 C L 12/11/20 08:25 Pulse 53 L 12/11/20 08:25 Resp 12 12/11/20 08:25 BP 111/58 L 12/11/20 08:25 Pulse Ox 93 L 12/11/20 08:25 Weight - Most Recent: 58.196 kg I&O - Last 24 Hours: Intake & Output 12/10/20 12/11/20 12/11/20 22:59 06:59 14:59 Intake Total 1298 2095 Output Total 900 400 Balance 398 1695 Lab Results Last 24 Hours: Laboratory Results - last 24 hr 12/10/20 12/10/20 12/11/20 Range/Units 15:10 15:15 05:28 WBC 14.71 H (4.0-11.0) K/uL RBC 3.85 L (4.30-5.90) M/uL Hgb 12.0 (12.0-16.0) g/dL Hct 36.3 (36.0-46.0) % MCV 94.3 (80.0-98.0) fL MCH 31.2 (27.0-32.0) pg MCHC 33.1 (31.0-37.0) g/dL RDW Std Deviation 46.9 (28.0-62.0) fl RDW Coeff of Malik 14 (11.0-15.0) % Plt Count 268 (150-400) K/uL MPV 9.50 (7.40-12.00) fL Neut % (Auto) 81.2 H (48.0-80.0) % Lymph % (Auto) 14.3 L (16.0-40.0) % [place] % (Auto) 4.1 (0.0-15.0) % Eos % (Auto) 0.3 (0.0-7.0) % Baso % (Auto) 0.1 (0.0-1.5) % Neut # (Auto) 11.9 H (1.4-5.7) K/uL Lymph # (Auto) 2.1 (0.6-2.4) K/uL [place] # (Auto) 0.6 (0.0-0.8) K/uL Eos # (Auto) 0.0 (0.0-0.7) K/uL Baso # (Auto) 0.0 (0.0-0.1) K/uL Nucleated RBC % 0.0 /100WBC Nucleated RBCs # 0 K/uL Sodium (136-145) mmol/L Potassium (3.5-5.1) mmol/L Chloride (98-107) mmol/L Carbon Dioxide (21.0-32.0) mmol/L BUN (7.0-18.0) mg/dL Creatinine (0.6-1.0) mg/dL Est Cr Clr Drug Dosing mL/min Estimated GFR (MDRD) ml/min Glucose (74-106) mg/dL Calcium (8.5-10.1) mg/dL Total Bilirubin (0.2-1.0) mg/dL AST (15-37) IU/L ALT (14-63) IU/L Alkaline Phosphatase (46-116) U/L Total Protein (6.4-8.2) g/dL Albumin (3.4-5.0) g/dL Globulin (2.6-4.0) g/dL Albumin/Globulin Ratio (0.9-1.6) Urine Color YELLOW Urine Appearance CLEAR Urine pH 5.5 (5.0-8.0) Ur Specific [place] 1.020 (1.001-1.035) Urine Protein NEGATIVE (NEGATIVE) mg/dL Urine Glucose (UA) NEGATIVE (NEGATIVE) mg/dL Urine Ketones 15 H (NEGATIVE) mg/dL Urine Occult Blood MODERATE H (NEGATIVE) Urine Nitrite NEGATIVE (NEGATIVE) Urine Bilirubin NEGATIVE (NEGATIVE) Urine Urobilinogen 0.2 (<2.0) EU/dL Ur Leukocyte Esterase TRACE H (NEGATIVE) Urine RBC 1-3 (0-2/HPF) Urine WBC 2-5 (0-5/HPF) Ur Epithelial Cells FEW (NONE-FEW) Amorphous Sediment FEW (NEGATIVE) Urine Bacteria FEW (NEGATIVE) Urine Mucus FEW (NONE-MOD) Group A Strep (PCR) NOT DETECTED (NOT DETECT) 12/11/20 Range/Units 05:28 WBC (4.0-11.0) K/uL RBC (4.30-5.90) M/uL Hgb (12.0-16.0) g/dL Hct (36.0-46.0) % MCV (80.0-98.0) fL MCH (27.0-32.0) pg MCHC (31.0-37.0) g/dL RDW Std Deviation (28.0-62.0) fl RDW Coeff of Malik (11.0-15.0) % Plt Count (150-400) K/uL MPV (7.40-12.00) fL Neut % (Auto) (48.0-80.0) % Lymph % (Auto) (16.0-40.0) % [place] % (Auto) (0.0-15.0) % Eos % (Auto) (0.0-7.0) % Baso % (Auto) (0.0-1.5) % Neut # (Auto) (1.4-5.7) K/uL Lymph # (Auto) (0.6-2.4) K/uL [place] # (Auto) (0.0-0.8) K/uL Eos # (Auto) (0.0-0.7) K/uL Baso # (Auto) (0.0-0.1) K/uL Nucleated RBC % /100WBC Nucleated RBCs # K/uL Sodium 141 (136-145) mmol/L Potassium 4.6 (3.5-5.1) mmol/L Chloride 105 (98-107) mmol/L Carbon Dioxide 26.0 (21.0-32.0) mmol/L BUN 16 (7.0-18.0) mg/dL Creatinine 0.9 (0.6-1.0) mg/dL Est Cr Clr Drug Dosing 49.53 mL/min Estimated GFR (MDRD) > 60.0 ml/min Glucose 144 H (74-106) mg/dL Calcium 8.1 L (8.5-10.1) mg/dL Total Bilirubin 0.3 (0.2-1.0) mg/dL AST 14 L (15-37) IU/L ALT 25 (14-63) IU/L Alkaline Phosphatase 50 (46-116) U/L Total Protein 6.4 (6.4-8.2) g/dL Albumin 3.0 L (3.4-5.0) g/dL Globulin 3.4 (2.6-4.0) g/dL Albumin/Globulin Ratio 0.9 (0.9-1.6) Urine Color Urine Appearance Urine pH (5.0-8.0) Ur Specific [place] (1.001-1.035) Urine Protein (NEGATIVE) mg/dL Urine Glucose (UA) (NEGATIVE) mg/dL Urine Ketones (NEGATIVE) mg/dL Urine Occult Blood (NEGATIVE) Urine Nitrite (NEGATIVE) Urine Bilirubin (NEGATIVE) Urine Urobilinogen (<2.0) EU/dL Ur Leukocyte Esterase (NEGATIVE) Urine RBC (0-2/HPF) Urine WBC (0-5/HPF) Ur Epithelial Cells (NONE-FEW) Amorphous Sediment (NEGATIVE) Urine Bacteria (NEGATIVE) Urine Mucus (NONE-MOD) Group A Strep (PCR) (NOT DETECT) Med Orders - Current: Current Medications Acetaminophen (Tylenol) 650 mg PO Q4H PRN PRN Reason: Pain (Mild 1-3)/fever Last Admin: 12/11/20 05:11 Dose: 650 mg Documented by: Alprazolam (Xanax) 0.5 mg PO DAILY PRN PRN Reason: Anxiety Last Admin: 12/10/20 21:22 Dose: 0.5 mg Documented by: Benzocaine (Hurricaine One 20%) 2 each MUCMEM Q2H PRN PRN Reason: Pain Last Admin: 12/11/20 02:55 Dose: 2 each Documented by: Buspirone HCl (Buspar) 15 mg PO BID [facility] Last Admin: 12/11/20 08:19 Dose: 15 mg Documented by: Ceftriaxone Sodium/Dextrose (Rocephin In Dextrose,Iso-Osm 1 Gm/50 Ml) 50 mls @ 100 mls/hr IV Q24H [facility] Last Admin: 12/10/20 19:08 Dose: 100 mls/hr Documented by: Lactated Ringer's (Ringers, Lactated) 1,000 mls @ 200 mls/hr IV Q5H [facility] Last Admin: 12/11/20 05:15 Dose: 200 mls/hr Documented by: Acyclovir 300 mg/ Sodium (Chloride) 106 mls @ 100 mls/hr IV Q12H [facility] Last Admin: 12/10/20 23:56 Dose: 100 mls/hr Documented by: Lidocaine HCl (Xylocaine 2% Viscous) 15 ml PO Q2H PRN PRN Reason: Pain Last Admin: 12/11/20 02:56 Dose: 15 ml Documented by: Methylprednisolone Sodium Succinate (Solu-Medrol) 40 mg IV Q8H [facility] Last Admin: 12/11/20 03:00 Dose: 40 mg Documented by: Morphine Sulfate (Morphine) 2 mg IVPUSH Q4H PRN PRN Reason: Pain (moderate 4-6) Last Admin: 12/10/20 19:11 Dose: 2 mg Documented by: Ondansetron HCl (Zofran) 4 mg IVPUSH Q4H PRN PRN Reason: Nausea Sodium Chloride (Saline Flush) 10 ml FLUSH ASDIRECTED PRN PRN Reason: Keep Vein Open Last Admin: 12/10/20 04:19 Dose: 10 ml Documented by: Sodium Chloride (Saline Flush) 2.5 ml FLUSH ASDIRECTED PRN PRN Reason: Keep Vein Open Last Admin: 12/10/20 04:18 Dose: 2.5 ml Documented by: Discontinued Medications Diphenhydr/Magaldrate/Simeth/Lidoca (First-Mouthwash Blm) 10 ml PO Q6H PRN PRN Reason: oral mucositis Last Admin: 12/10/20 15:01 Dose: 10 ml Documented by: Ceftriaxone Sodium 1 gm/ (Sodium Chloride) 50 mls @ 100 mls/hr IV Q24H [facility] Last Admin: 12/10/20 19:02 Dose: Not Given Documented by: Sodium Chloride (Normal Saline) 1,000 mls @ 999 mls/hr IV .Bolus ONE Stop: 12/10/20 05:08 Last Admin: 12/10/20 04:18 Dose: 999 mls/hr Documented by: Sodium Chloride (Normal Saline) 1,000 mls @ 999 mls/hr IV NOW STA Stop: 12/10/20 07:30 Last Admin: 12/10/20 06:35 Dose: 999 mls/hr Documented by: Lactated Ringer's (Ringers, Lactated) 1,000 mls @ 75 mls/hr IV ASDIRECTED [facility] Stop: 12/10/20 20:49 Last Infusion: 12/10/20 12:50 Dose: 200 mls/hr Documented by: Lidocaine HCl (Xylocaine 2% Viscous) 15 ml PO Q2H PRN PRN Reason: Pain Stop: 12/10/20 17:46 Methylprednisolone Sodium Succinate (Solu-Medrol) 125 mg IVPUSH ONETIME ONE Stop: 12/10/20 04:57 Last Admin: 12/10/20 05:05 Dose: 125 mg Documented by: Morphine Sulfate (Morphine) 4 mg IVPUSH ONETIME ONE Stop: 12/10/20 04:09 Last Admin: 12/10/20 04:18 Dose: 4 mg Documented by: Ondansetron HCl (Zofran) 4 mg IVPUSH ONETIME ONE Stop: 12/10/20 04:09 Last Admin: 12/10/20 04:18 Dose: 4 mg Documented by: - Exam General: Alert, Oriented, Cooperative, No Acute Distress HEENT: Other (Multiple scattered 1 mm x 1mm ulcerative lesions on lips, tongue and inside both cheeks.) Lungs: Clear to Auscultation, Normal Respiratory Effort Cardiovascular: Regular Rate, Regular Rhythm GI/Abdominal Exam: Normal Bowel Sounds, Soft, Non-Tender, No Distention (Female) Exam: Other (Multiple scattered 1 mm x 1 mm ulcerative lesions on labia minora and vaginal mucosa.) Extremities: Normal Inspection, No Pedal Edema - Patient Data Result Diagrams: 12/11/20 05:28 12/11/20 05:28 Sepsis Event Note - Evaluation Sepsis Screening Result: No Definite Risk - Focused Exam Vital Signs: Vital Signs Temp Pulse Resp BP BP Pulse Ox 12/11/20 08:25 35.9 C L 53 L 12 111/58 L 93 L 12/11/20 07:14 36.2 C 74 16 120/71 97 12/11/20 03:00 36.3 C 54 L 16 113/59 L 96 12/10/20 23:57 36.6 C 55 L 16 98/42 L 94 L - Problem List & Annotations (1) Vaginal lesion SNOMED Code(s): 242134328 Code(s): N89.8 - OTHER SPECIFIED NONINFLAMMATORY DISORDERS OF VAGINA Status: Acute Current Visit: Yes (2) ETHAN (acute kidney injury) SNOMED Code(s): 72993049, 64115159 Code(s): N17.9 - ACUTE KIDNEY FAILURE, UNSPECIFIED Status: Acute Current Visit: Yes (3) Aphthous ulcer of mouth SNOMED Code(s): 260048789 Code(s): K12.0 - RECURRENT ORAL APHTHAE Status: Acute Current Visit: Yes (4) Anxiety SNOMED Code(s): 21242096 Code(s): F41.9 - ANXIETY DISORDER, UNSPECIFIED Status: Acute Current Visit: No (5) COPD (chronic obstructive pulmonary disease) SNOMED Code(s): 81649985 Code(s): J44.9 - CHRONIC OBSTRUCTIVE PULMONARY DISEASE, UNSPECIFIED Status: Acute Current Visit: No - Problem List Review Problem List Initiated/Reviewed/Updated: Yes - My Orders Last 24 Hours: My Active Orders 12/10/20 07:49 Code Status [Resuscitation Status] Routine 12/10/20 08:00 Morphine 2 mg IVPUSH Q4H PRN 12/10/20 09:00 ALPRAZolam [Xanax] 0.5 mg PO DAILY PRN busPIRone [Buspar] 15 mg PO BID 12/10/20 15:10 CULTURE URINE [RM] Urgent 12/10/20 18:00 Benzocaine [Hurricaine One 20%] 2 each MUCMEM Q2H PRN Lidocaine 2% [Xylocaine 2% Viscous] 15 ml PO Q2H PRN - Plan Plan:: Assessment and Plan: 1. Oral and vaginal mucosal lesions secondary to drug reaction vs herpetic infection: - Continue IV LR's @ 125 cc/hr, IV morphine 2 mg q4 prn pain, IV acyclovir, IV s olumedrol 40 mg q8 and dental balls. Herpes culture pending at this time. - No other skin rashes or ocular involvement appreciated at this time. - Rapid strep test negative. - Will contact [facility] for recommendations regarding vaginal lesions. 2. ETHAN, resolved: 3. Past medical history of COPD and anxiety: - Continue home medications. 4. DVT prophylaxis: - Lovenox 40 mg subcut qd.
[2020-12-11] MEDS: Enoxaparin 40 MG/0.4 ML Syringe SUBCUT SCH (10:24)
--- NOTE | 2020-12-11 11:18 | PCM.SN.2 ---
- Free Text/Narrative Note: This provider was asked to assess vagina/labial inflammation for this patient. On inspection, labia minora and vaginal introitus appears erythematous and friable and with moderate amount of thin, white vaginal discharge. Area exquisitely painful to palpation. Patient reports severe burning with urination to said area. I suspect this inflammation is likely related to her medication reaction. Advise use of shreyas bottle with every void and to pat dry versus wiping. Also advise no underwear or liners; recommend leaving area open to air. Patient is allergic to both lanolin and aloe, so most options for barrier creams (i.e. desitin)/ numbing sprays (i.e. dermoplast) will likely exacerbate the problem. I am hesitant to try topical steroid cream as she is already receiving systemic treatment. Affirm swab ordered to rule out yeast/BV. I lidocaine cream (or lidocaine/hydrocortisone cream) may be an option if without aloe or lanolin. Dr. Irene advised he will check with pharmacy. Advise to keep this provider updated if anything changes or gets worse.
[2020-12-11] MEDS: Acyclovir 300 MG in Sodium Chloride 0.9% 100 ML IV SCH (13:03)
[2020-12-11] MEDS ORDERED: Ibuprofen 400 MG Tab PO PRN (17:11)
[2020-12-11] MEDS: Pantoprazole 40 MG in Sodium Chloride 0.9% 10 ML IV SCH (17:33)
[2020-12-11] MEDS ORDERED: Lidocaine 5% Oint 35.44 GM Tube TOP ONE (18:03)
[2020-12-11] MEDS ORDERED: Lidocaine 5% Oint 35.44 GM Tube TOP PRN (18:08)
[2020-12-11] MEDS: ALPRAZolam 0.5 MG Tab PO PRN (18:26)
[2020-12-11] MEDS: Ibuprofen 400 MG Tab PO PRN (18:27)
[2020-12-11] MEDS ORDERED: Morphine 2 MG/ML SYRINGE IVPUSH ONE ×2 (18:32→23:34)
[2020-12-12] MEDS: Acyclovir 300 MG in Sodium Chloride 0.9% 100 ML IV SCH (00:16)
[2020-12-12] MEDS: Acetaminophen 325 MG Tab PO PRN ×5 (03:11→21:30)
[2020-12-12] MEDS: Lactated Ringers 1,000 ML IV SCH ×4 (03:14→13:28)
[2020-12-12] MEDS: methylPREDNISolone Sodium Succinate 40 MG/1 ML SDV IV SCH ×3 (03:14→21:30)
[2020-12-12 06:46] LABS: BLOOD UREA NITROGEN,BUN 23 mg/dL (7.0-18.0); CARBON DIOXIDE,CO2 26.7 mmol/L (21.0-32.0); CHLORIDE,CL 106 mmol/L (98-107); GLUCOSE RANDOM 136 mg/dL (74-106); POTASSIUM,K 4.6 mmol/L (3.5-5.1); SODIUM,NA 141 mmol/L (136-145)
[2020-12-12] MEDS: Pantoprazole 40 MG in Sodium Chloride 0.9% 10 ML IV SCH (08:33)
[2020-12-12] MEDS: Enoxaparin 40 MG/0.4 ML Syringe SUBCUT SCH (08:38)
--- NOTE | 2020-12-12 08:55 | PCM.PN ---
- General Info Date of Service: 12/12/20 Subjective Update: Continues to complain of pain from oral ulcers and vaginal lesions. Tolerated soft diet yesterday evening and urinating frequently. No fevers or chills overnight. - Patient Data Vitals - Most Recent: Last Vital Signs Temp 36.2 C 12/12/20 08:41 Pulse 43 L 12/12/20 08:41 Resp 14 12/12/20 08:41 BP 136/53 L 12/12/20 08:41 Pulse Ox 93 L 12/12/20 08:41 Weight - Most Recent: 58.196 kg I&O - Last 24 Hours: Intake & Output 12/11/20 12/12/20 12/12/20 22:59 06:59 14:59 Intake Total 2131 1626 Output Total 900 1050 Balance 1231 576 Lab Results Last 24 Hours: Laboratory Results - last 24 hr 12/11/20 12/12/20 12/12/20 Range/Units 13:00 06:05 06:05 WBC 9.83 (4.0-11.0) K/uL RBC 3.48 L (4.30-5.90) M/uL Hgb 10.8 L (12.0-16.0) g/dL Hct 32.9 L (36.0-46.0) % MCV 94.5 (80.0-98.0) fL MCH 31.0 (27.0-32.0) pg MCHC 32.8 (31.0-37.0) g/dL RDW Std Deviation 48.2 (28.0-62.0) fl RDW Coeff of Malik 14 (11.0-15.0) % Plt Count 279 (150-400) K/uL MPV 9.60 (7.40-12.00) fL Neut % (Auto) 76.6 (48.0-80.0) % Lymph % (Auto) 15.5 L (16.0-40.0) % [place] % (Auto) 7.8 (0.0-15.0) % Eos % (Auto) 0.0 (0.0-7.0) % Baso % (Auto) 0.1 (0.0-1.5) % Neut # (Auto) 7.5 H (1.4-5.7) K/uL Lymph # (Auto) 1.5 (0.6-2.4) K/uL [place] # (Auto) 0.8 (0.0-0.8) K/uL Eos # (Auto) 0.0 (0.0-0.7) K/uL Baso # (Auto) 0.0 (0.0-0.1) K/uL Nucleated RBC % 0.0 /100WBC Nucleated RBCs # 0 K/uL Sodium 141 (136-145) mmol/L Potassium 4.6 (3.5-5.1) mmol/L Chloride 106 (98-107) mmol/L Carbon Dioxide 26.7 (21.0-32.0) mmol/L BUN 23 H (7.0-18.0) mg/dL Creatinine 0.9 (0.6-1.0) mg/dL Est Cr Clr Drug Dosing 49.53 mL/min Estimated GFR (MDRD) > 60.0 ml/min Glucose 136 H (74-106) mg/dL Calcium 8.0 L (8.5-10.1) mg/dL Total Bilirubin 0.3 (0.2-1.0) mg/dL AST 51 H (15-37) IU/L ALT 83 H (14-63) IU/L Alkaline Phosphatase 47 (46-116) U/L Total Protein 5.4 L (6.4-8.2) g/dL Albumin 2.5 L (3.4-5.0) g/dL Globulin 2.9 (2.6-4.0) g/dL Albumin/Globulin Ratio 0.9 (0.9-1.6) Humera species DNA NEGATIVE (NEGATIVE) Gardnerella DNA Probe NEGATIVE (NEGATIVE) Trichomonas DNA Probe NEGATIVE (NEGATIVE) Walter Results Last 24 Hours: Microbiology 12/10/20 15:10 Urine Culture - Final Urine, Clean Catch MIXED SCOOBY <1000 CFU/ML 12/10/20 04:20 Herpes Simplex Virus DNA - Final Genital - Vagina 12/10/20 04:20 Herpes Simplex Virus DNA - Final Buccal Smear Med Orders - Current: Current Medications Acetaminophen (Tylenol) 650 mg PO Q4H PRN PRN Reason: Pain (Mild 1-3)/fever Last Admin: 12/12/20 08:32 Dose: 650 mg Documented by: Alprazolam (Xanax) 0.5 mg PO DAILY PRN PRN Reason: Anxiety Last Admin: 12/11/20 18:26 Dose: 0.5 mg Documented by: Benzocaine (Hurricaine One 20%) 2 each MUCMEM Q2H PRN PRN Reason: Pain Last Admin: 12/11/20 14:26 Dose: 2 each Documented by: Buspirone HCl (Buspar) 15 mg PO BID [facility] Last Admin: 12/11/20 20:08 Dose: 15 mg Documented by: Enoxaparin Sodium (Lovenox) 40 mg SUBCUT Q24H [facility] Last Admin: 12/12/20 08:38 Dose: 40 mg Documented by: Ceftriaxone Sodium/Dextrose (Rocephin In Dextrose,Iso-Osm 1 Gm/50 Ml) 50 mls @ 100 mls/hr IV Q24H [facility] Last Admin: 12/11/20 18:30 Dose: 100 mls/hr Documented by: Pantoprazole Sodium 40 mg/ (Sodium Chloride) 10 mls @ 300 mls/hr IV DAILY [facility] Last Admin: 12/12/20 08:33 Dose: 300 mls/hr Documented by: Lactated Ringer's (Ringers, Lactated) 1,000 mls @ 125 mls/hr IV Q5H [facility] Last Admin: 12/12/20 04:45 Dose: 125 mls/hr Documented by: Acyclovir 300 mg/ Sodium (Chloride) 106 mls @ 100 mls/hr IV Q12H [facility] Last Admin: 12/12/20 00:16 Dose: 100 mls/hr Documented by: Ibuprofen (Motrin) 400 mg PO Q6H PRN PRN Reason: Pain Last Admin: 12/11/20 18:27 Dose: 400 mg Documented by: Lidocaine HCl (Xylocaine 2% Viscous) 15 ml PO Q2H PRN PRN Reason: Pain Last Admin: 12/11/20 14:26 Dose: 15 ml Documented by: Methylprednisolone Sodium Succinate (Solu-Medrol) 40 mg IV Q8H [facility] Last Admin: 12/12/20 03:14 Dose: 40 mg Documented by: Ondansetron HCl (Zofran) 4 mg IVPUSH Q4H PRN PRN Reason: Nausea Sodium Chloride (Saline Flush) 10 ml FLUSH ASDIRECTED PRN PRN Reason: Keep Vein Open Last Admin: 12/10/20 04:19 Dose: 10 ml Documented by: Sodium Chloride (Saline Flush) 2.5 ml FLUSH ASDIRECTED PRN PRN Reason: Keep Vein Open Last Admin: 12/10/20 04:18 Dose: 2.5 ml Documented by: Discontinued Medications Diphenhydr/Magaldrate/Simeth/Lidoca (First-Mouthwash Blm) 10 ml PO Q6H PRN PRN Reason: oral mucositis Last Admin: 12/10/20 15:01 Dose: 10 ml Documented by: Ceftriaxone Sodium 1 gm/ (Sodium Chloride) 50 mls @ 100 mls/hr IV Q24H [facility] Last Admin: 12/10/20 19:02 Dose: Not Given Documented by: Sodium Chloride (Normal Saline) 1,000 mls @ 999 mls/hr IV .Bolus ONE Stop: 12/10/20 05:08 Last Admin: 12/10/20 04:18 Dose: 999 mls/hr Documented by: Sodium Chloride (Normal Saline) 1,000 mls @ 999 mls/hr IV NOW STA Stop: 12/10/20 07:30 Last Admin: 12/10/20 06:35 Dose: 999 mls/hr Documented by: Lactated Ringer's (Ringers, Lactated) 1,000 mls @ 75 mls/hr IV ASDIRECTED [facility] Stop: 12/10/20 20:49 Last Infusion: 12/10/20 12:50 Dose: 200 mls/hr Documented by: Ibuprofen (Motrin) 400 mg PO Q6H PRN PRN Reason: Pain Lidocaine HCl (Xylocaine 2% Viscous) 15 ml PO Q2H PRN PRN Reason: Pain Stop: 12/10/20 17:46 Lidocaine HCl (Lidocaine 5%) 1 gm TOP ONETIME ONE Stop: 12/11/20 18:04 Last Admin: 12/11/20 18:20 Dose: Not Given Documented by: Lidocaine HCl (Lidocaine 5%) 0 gm TOP BID PRN PRN Reason: Other Methylprednisolone Sodium Succinate (Solu-Medrol) 125 mg IVPUSH ONETIME ONE Stop: 12/10/20 04:57 Last Admin: 12/10/20 05:05 Dose: 125 mg Documented by: Morphine Sulfate (Morphine) 1 mg IVPUSH ONETIME ONE Stop: 12/11/20 18:33 Last Admin: 12/12/20 00:08 Dose: Not Given Documented by: Morphine Sulfate (Morphine) 1 mg IVPUSH ONETIME ONE Stop: 12/11/20 23:35 Last Admin: 12/12/20 00:07 Dose: 1 mg Documented by: Morphine Sulfate (Morphine) 4 mg IVPUSH ONETIME ONE Stop: 12/10/20 04:09 Last Admin: 12/10/20 04:18 Dose: 4 mg Documented by: Morphine Sulfate (Morphine) 2 mg IVPUSH Q4H PRN PRN Reason: Pain (moderate 4-6) Last Admin: 12/10/20 19:11 Dose: 2 mg Documented by: Ondansetron HCl (Zofran) 4 mg IVPUSH ONETIME ONE Stop: 12/10/20 04:09 Last Admin: 12/10/20 04:18 Dose: 4 mg Documented by: - Exam General: Alert, Oriented, Cooperative, No Acute Distress HEENT: Other (Multiple scattered 0.5 cm x 0.5 cm ulcerative lesions on lips, tongue and inside both cheeks.) Lungs: Clear to Auscultation, Normal Respiratory Effort Cardiovascular: Regular Rate, Regular Rhythm (Female) Exam: Other (Multiple scattered 1 mm x 1 mm lesions on labia minora and vaginal mucosa.) Extremities: Normal Inspection, No Pedal Edema - Patient Data Lab Results Last 24 hrs: Laboratory Results - last 24 hr 12/11/20 12/12/20 12/12/20 Range/Units 13:00 06:05 06:05 WBC 9.83 (4.0-11.0) K/uL RBC 3.48 L (4.30-5.90) M/uL Hgb 10.8 L (12.0-16.0) g/dL Hct 32.9 L (36.0-46.0) % MCV 94.5 (80.0-98.0) fL MCH 31.0 (27.0-32.0) pg MCHC 32.8 (31.0-37.0) g/dL RDW Std Deviation 48.2 (28.0-62.0) fl RDW Coeff of Malik 14 (11.0-15.0) % Plt Count 279 (150-400) K/uL MPV 9.60 (7.40-12.00) fL Neut % (Auto) 76.6 (48.0-80.0) % Lymph % (Auto) 15.5 L (16.0-40.0) % [place] % (Auto) 7.8 (0.0-15.0) % Eos % (Auto) 0.0 (0.0-7.0) % Baso % (Auto) 0.1 (0.0-1.5) % Neut # (Auto) 7.5 H (1.4-5.7) K/uL Lymph # (Auto) 1.5 (0.6-2.4) K/uL [place] # (Auto) 0.8 (0.0-0.8) K/uL Eos # (Auto) 0.0 (0.0-0.7) K/uL Baso # (Auto) 0.0 (0.0-0.1) K/uL Nucleated RBC % 0.0 /100WBC Nucleated RBCs # 0 K/uL Sodium 141 (136-145) mmol/L Potassium 4.6 (3.5-5.1) mmol/L Chloride 106 (98-107) mmol/L Carbon Dioxide 26.7 (21.0-32.0) mmol/L BUN 23 H (7.0-18.0) mg/dL Creatinine 0.9 (0.6-1.0) mg/dL Est Cr Clr Drug Dosing 49.53 mL/min Estimated GFR (MDRD) > 60.0 ml/min Glucose 136 H (74-106) mg/dL Calcium 8.0 L (8.5-10.1) mg/dL Total Bilirubin 0.3 (0.2-1.0) mg/dL AST 51 H (15-37) IU/L ALT 83 H (14-63) IU/L Alkaline Phosphatase 47 (46-116) U/L Total Protein 5.4 L (6.4-8.2) g/dL Albumin 2.5 L (3.4-5.0) g/dL Globulin 2.9 (2.6-4.0) g/dL Albumin/Globulin Ratio 0.9 (0.9-1.6) Humera species DNA NEGATIVE (NEGATIVE) Gardnerella DNA Probe NEGATIVE (NEGATIVE) Trichomonas DNA Probe NEGATIVE (NEGATIVE) Result Diagrams: 12/12/20 06:05 12/12/20 06:05 Walter Results Last 24 hrs: Microbiology 12/10/20 15:10 Urine Culture - Final Urine, Clean Catch MIXED SCOOBY <1000 CFU/ML 12/10/20 04:20 Herpes Simplex Virus DNA - Final Genital - Vagina 12/10/20 04:20 Herpes Simplex Virus DNA - Final Buccal Smear Sepsis Event Note - Evaluation Sepsis Screening Result: No Definite Risk - Focused Exam Vital Signs: Vital Signs Temp Pulse Resp BP Pulse Ox 12/12/20 08:41 36.2 C 43 L 14 136/53 L 93 L 12/12/20 03:18 36.3 C 43 L 14 110/53 L 93 L 12/11/20 23:29 36.2 C 42 L 14 113/62 93 L - Problem List & Annotations (1) Herpes Status: Acute Current Visit: Yes (2) Vaginal lesion SNOMED Code(s): 221066986 Code(s): N89.8 - OTHER SPECIFIED NONINFLAMMATORY DISORDERS OF VAGINA Status: Acute Current Visit: Yes (3) ETHAN (acute kidney injury) SNOMED Code(s): 65515011, 85070158 Code(s): N17.9 - ACUTE KIDNEY FAILURE, UNSPECIFIED Status: Acute Current Visit: Yes (4) Aphthous ulcer of mouth SNOMED Code(s): 214254138 Code(s): K12.0 - RECURRENT ORAL APHTHAE Status: Acute Current Visit: Yes (5) Anxiety SNOMED Code(s): 07938125 Code(s): F41.9 - ANXIETY DISORDER, UNSPECIFIED Status: Acute Current Visit: No (6) COPD (chronic obstructive pulmonary disease) SNOMED Code(s): 26716230 Code(s): J44.9 - CHRONIC OBSTRUCTIVE PULMONARY DISEASE, UNSPECIFIED Status: Acute Current Visit: No - Problem List Review Problem List Initiated/Reviewed/Updated: Yes - My Orders Last 24 Hours: My Active Orders 12/11/20 09:00 Enoxaparin [Lovenox] 40 mg SUBCUT Q24H 12/11/20 10:34 Notify Provider Consults [RC] ASDIRECTED Consult to Physician [CONS] Urgent 12/11/20 Lunch Soft Diet [DIET] 12/11/20 17:15 Pantoprazole [ProTONIX IV] 40 mg Sodium Chloride 0.9% [Normal Saline] 10 ml IV DAILY 12/11/20 18:15 Ibuprofen [Motrin] 400 mg PO Q6H PRN 12/11/20 18:33 Notify Provider Consults [RC] ASDIRECTED Consult to Physician [CONS] Routine - Plan Plan:: Assessment and Plan: 1. Oral and vaginal mucosal lesions secondary to herpetic infection: - Continue IV LR's @ 125 cc/hr, IV acyclovir and IV solumedrol 40 mg q12. No skin rashes or ocular involvement appreciated at this time. - [facility] Self consulted who believes patient's lesions are herpes virus infection. Although cultures negative for HSV-1/HSV-2, recommended continuing acyclovir, testing for HIV, RPR and retesting for HSV in a few days. On discharge, can provide script for epifoam. - Rapid strep test negative. 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 Patient was offered transfer but declined and would like to stay in [place] at this time. 2. ETHAN, resolved: 3. Past medical history of COPD and anxiety: - Continue home medications. 4. DVT prophylaxis: - Lovenox 40 mg subcut qd.
[2020-12-12] MEDS: busPIRone 5 MG Tab PO SCH ×2 (09:04→21:31)
[2020-12-12] MEDS ORDERED: Al and Mag Hydroxide/Diphenhydramine/Lidocaine/Simethicone 237 ML Bottle PO PRN (10:31)
[2020-12-12] MEDS ORDERED: Acyclovir 450 MG in Sodium Chloride 0.9% 100 ML IV SCH (11:00)
[2020-12-12] MEDS: Ibuprofen 400 MG Tab PO PRN ×2 (11:12→19:18)
[2020-12-12] MEDS: Al and Mag Hydroxide/Diphenhydramine/Lidocaine/Simethicone 237 ML Bottle PO PRN ×2 (11:16→19:19)
[2020-12-12] MEDS: Acyclovir 450 MG in Sodium Chloride 0.9% 100 ML IV SCH (13:25)
[2020-12-12] MEDS: ALPRAZolam 0.5 MG Tab PO PRN (16:30)
[2020-12-12] MEDS: Docusate Sodium 100 MG Cap PO PRN (16:30)
[2020-12-13] MEDS: Acyclovir 450 MG in Sodium Chloride 0.9% 100 ML IV SCH ×2 (00:12→12:50)
[2020-12-13] MEDS: Lactated Ringers 1,000 ML IV SCH ×5 (00:12→15:56)
[2020-12-13] MEDS: Ibuprofen 400 MG Tab PO PRN ×3 (01:21→14:25)
[2020-12-13] MEDS: Al and Mag Hydroxide/Diphenhydramine/Lidocaine/Simethicone 237 ML Bottle PO PRN ×2 (01:22→10:35)
[2020-12-13] MEDS: Acetaminophen 325 MG Tab PO PRN ×2 (06:03→12:47)
[2020-12-13 06:45] LABS: BLOOD UREA NITROGEN,BUN 27 mg/dL (7.0-18.0); CARBON DIOXIDE,CO2 25.4 mmol/L (21.0-32.0); CHLORIDE,CL 107 mmol/L (98-107); GLUCOSE RANDOM 126 mg/dL (74-106); POTASSIUM,K 4.3 mmol/L (3.5-5.1); SODIUM,NA 141 mmol/L (136-145)
[2020-12-13] MEDS: busPIRone 5 MG Tab PO SCH (08:12)
[2020-12-13] MEDS: Enoxaparin 40 MG/0.4 ML Syringe SUBCUT SCH (08:13)
[2020-12-13] MEDS: Pantoprazole 40 MG in Sodium Chloride 0.9% 10 ML IV SCH (08:13)
[2020-12-13] MEDS: methylPREDNISolone Sodium Succinate 40 MG/1 ML SDV IV SCH (10:07)
[2020-12-13] MEDS: Sodium Chloride 0.9% 2.5 ML Syringe FLUSH PRN (10:08)
--- NOTE | 2020-12-13 11:56 | PCM.PN ---
- General Info Date of Service: 12/13/20 - Review of Systems Systems Review Comment:: reports pain when chewing or drinking. mild improvement. - Patient Data Vitals - Most Recent: Last Vital Signs Temp 36.3 C 12/13/20 08:17 Pulse 40 L 12/13/20 08:17 Resp 14 12/13/20 08:17 BP 135/75 12/13/20 08:17 Pulse Ox 94 L 12/13/20 08:17 Weight - Most Recent: 58.196 kg I&O - Last 24 Hours: Intake & Output 12/12/20 12/13/20 12/13/20 22:59 06:59 14:59 Intake Total 1902 480 Output Total 700 300 Balance 1202 180 Lab Results Last 24 Hours: Laboratory Results - last 24 hr 12/12/20 12/13/20 12/13/20 Range/Units 06:05 05:48 05:48 WBC 7.59 (4.0-11.0) K/uL RBC 3.63 L (4.30-5.90) M/uL Hgb 11.3 L (12.0-16.0) g/dL Hct 34.2 L (36.0-46.0) % MCV 94.2 (80.0-98.0) fL MCH 31.1 (27.0-32.0) pg MCHC 33.0 (31.0-37.0) g/dL RDW Std Deviation 47.5 (28.0-62.0) fl RDW Coeff of Malik 14 (11.0-15.0) % Plt Count 299 (150-400) K/uL MPV 9.90 (7.40-12.00) fL Neut % (Auto) 71.2 (48.0-80.0) % Lymph % (Auto) 21.7 (16.0-40.0) % [place] % (Auto) 7.1 (0.0-15.0) % Eos % (Auto) 0.0 (0.0-7.0) % Baso % (Auto) 0.0 (0.0-1.5) % Neut # (Auto) 5.4 (1.4-5.7) K/uL Lymph # (Auto) 1.7 (0.6-2.4) K/uL [place] # (Auto) 0.5 (0.0-0.8) K/uL Eos # (Auto) 0.0 (0.0-0.7) K/uL Baso # (Auto) 0.0 (0.0-0.1) K/uL Nucleated RBC % 0.0 /100WBC Nucleated RBCs # 0 K/uL Sodium 141 (136-145) mmol/L Potassium 4.3 (3.5-5.1) mmol/L Chloride 107 (98-107) mmol/L Carbon Dioxide 25.4 (21.0-32.0) mmol/L BUN 27 H (7.0-18.0) mg/dL Creatinine 0.8 (0.6-1.0) mg/dL Est Cr Clr Drug Dosing 55.73 mL/min Estimated GFR (MDRD) > 60.0 ml/min Glucose 126 H (74-106) mg/dL Calcium 7.8 L (8.5-10.1) mg/dL Total Bilirubin 0.4 (0.2-1.0) mg/dL AST 31 (15-37) IU/L ALT 67 H (14-63) IU/L Alkaline Phosphatase 44 L (46-116) U/L Total Protein 5.2 L (6.4-8.2) g/dL Albumin 2.5 L (3.4-5.0) g/dL Globulin 2.7 (2.6-4.0) g/dL Albumin/Globulin Ratio 0.9 (0.9-1.6) HIV 1&2 Ag/Ab, 4th Gen 0.1 (<1.0) INDEX Walter Results Last 24 Hours: Microbiology 12/10/20 15:10 Urine Culture - Final Urine, Clean Catch MIXED SCOOBY <1000 CFU/ML Med Orders - Current: Current Medications Acetaminophen (Tylenol) 650 mg PO Q4H PRN PRN Reason: Pain (Mild 1-3)/fever Last Admin: 12/13/20 06:03 Dose: 650 mg Documented by: Alprazolam (Xanax) 0.5 mg PO DAILY PRN PRN Reason: Anxiety Last Admin: 12/12/20 16:30 Dose: 0.5 mg Documented by: Benzocaine (Hurricaine One 20%) 2 each MUCMEM Q2H PRN PRN Reason: Pain Last Admin: 12/11/20 14:26 Dose: 2 each Documented by: Buspirone HCl (Buspar) 15 mg PO BID [facility] Last Admin: 12/13/20 08:12 Dose: 15 mg Documented by: Diphenhydr/Magaldrate/Simeth/Lidoca (First-Mouthwash Blm) 10 ml PO Q6H PRN PRN Reason: Pain Last Admin: 12/13/20 10:35 Dose: 10 ml Documented by: Docusate Sodium (Colace) 100 mg PO BID PRN PRN Reason: Constipation Last Admin: 12/12/20 16:30 Dose: 100 mg Documented by: Enoxaparin Sodium (Lovenox) 40 mg SUBCUT Q24H [facility] Last Admin: 12/13/20 08:13 Dose: 40 mg Documented by: Pantoprazole Sodium 40 mg/ (Sodium Chloride) 10 mls @ 300 mls/hr IV DAILY [facility] Last Admin: 12/13/20 08:13 Dose: 300 mls/hr Documented by: Acyclovir 450 mg/ Sodium (Chloride) 109 mls @ 109 mls/hr IV Q12H [facility] Last Admin: 12/13/20 00:12 Dose: 109 mls/hr Documented by: Lactated Ringer's (Ringers, Lactated) 1,000 mls @ 125 mls/hr IV Q5H [facility] Last Admin: 12/13/20 10:00 Dose: 125 mls/hr Documented by: Ibuprofen (Motrin) 400 mg PO Q6H PRN PRN Reason: Pain Last Admin: 12/13/20 08:12 Dose: 400 mg Documented by: Lidocaine HCl (Xylocaine 2% Viscous) 15 ml PO Q2H PRN PRN Reason: Pain Last Admin: 12/11/20 14:26 Dose: 15 ml Documented by: Ondansetron HCl (Zofran) 4 mg IVPUSH Q4H PRN PRN Reason: Nausea Sodium Chloride (Saline Flush) 10 ml FLUSH ASDIRECTED PRN PRN Reason: Keep Vein Open Last Admin: 12/10/20 04:19 Dose: 10 ml Documented by: Sodium Chloride (Saline Flush) 2.5 ml FLUSH ASDIRECTED PRN PRN Reason: Keep Vein Open Last Admin: 12/13/20 10:08 Dose: 2.5 ml Documented by: Discontinued Medications Diphenhydr/Magaldrate/Simeth/Lidoca (First-Mouthwash Blm) 10 ml PO ASDIRECTED PRN PRN Reason: Pain Diphenhydr/Magaldrate/Simeth/Lidoca (First-Mouthwash Blm) 10 ml PO Q6H PRN PRN Reason: oral mucositis Last Admin: 12/10/20 15:01 Dose: 10 ml Documented by: Ceftriaxone Sodium 1 gm/ (Sodium Chloride) 50 mls @ 100 mls/hr IV Q24H [facility] Last Admin: 12/10/20 19:02 Dose: Not Given Documented by: Ceftriaxone Sodium/Dextrose (Rocephin In Dextrose,Iso-Osm 1 Gm/50 Ml) 50 mls @ 100 mls/hr IV Q24H [facility] Last Admin: 12/11/20 18:30 Dose: 100 mls/hr Documented by: Acyclovir 450 mg/ Sodium (Chloride) 109 mls @ 100 mls/hr IV Q12H [facility] Last Admin: 12/12/20 14:02 Dose: Not Given Documented by: Sodium Chloride (Normal Saline) 1,000 mls @ 999 mls/hr IV .Bolus ONE Stop: 12/10/20 05:08 Last Admin: 12/10/20 04:18 Dose: 999 mls/hr Documented by: Sodium Chloride (Normal Saline) 1,000 mls @ 999 mls/hr IV NOW STA Stop: 12/10/20 07:30 Last Admin: 12/10/20 06:35 Dose: 999 mls/hr Documented by: Lactated Ringer's (Ringers, Lactated) 1,000 mls @ 75 mls/hr IV ASDIRECTED [facility] Stop: 12/10/20 20:49 Last Infusion: 12/10/20 12:50 Dose: 200 mls/hr Documented by: Acyclovir 300 mg/ Sodium (Chloride) 106 mls @ 100 mls/hr IV Q12H [facility] Last Admin: 12/12/20 00:16 Dose: 100 mls/hr Documented by: Ibuprofen (Motrin) 400 mg PO Q6H PRN PRN Reason: Pain Lidocaine HCl (Xylocaine 2% Viscous) 15 ml PO Q2H PRN PRN Reason: Pain Stop: 12/10/20 17:46 Lidocaine HCl (Lidocaine 5%) 1 gm TOP ONETIME ONE Stop: 12/11/20 18:04 Last Admin: 12/11/20 18:20 Dose: Not Given Documented by: Lidocaine HCl (Lidocaine 5%) 0 gm TOP BID PRN PRN Reason: Other Methylprednisolone Sodium Succinate (Solu-Medrol) 40 mg IV Q12H [facility] Last Admin: 12/13/20 10:07 Dose: 40 mg Documented by: Methylprednisolone Sodium Succinate (Solu-Medrol) 125 mg IVPUSH ONETIME ONE Stop: 12/10/20 04:57 Last Admin: 12/10/20 05:05 Dose: 125 mg Documented by: Methylprednisolone Sodium Succinate (Solu-Medrol) 40 mg IV Q8H [facility] Last Admin: 12/12/20 03:14 Dose: 40 mg Documented by: Morphine Sulfate (Morphine) 1 mg IVPUSH ONETIME ONE Stop: 12/11/20 18:33 Last Admin: 12/12/20 00:08 Dose: Not Given Documented by: Morphine Sulfate (Morphine) 1 mg IVPUSH ONETIME ONE Stop: 12/11/20 23:35 Last Admin: 12/12/20 00:07 Dose: 1 mg Documented by: Morphine Sulfate (Morphine) 4 mg IVPUSH ONETIME ONE Stop: 12/10/20 04:09 Last Admin: 12/10/20 04:18 Dose: 4 mg Documented by: Morphine Sulfate (Morphine) 2 mg IVPUSH Q4H PRN PRN Reason: Pain (moderate 4-6) Last Admin: 12/10/20 19:11 Dose: 2 mg Documented by: Ondansetron HCl (Zofran) 4 mg IVPUSH ONETIME ONE Stop: 12/10/20 04:09 Last Admin: 12/10/20 04:18 Dose: 4 mg Documented by: - Exam General: Alert, Oriented HEENT: Other (multiple ulcers on tounge and gums) Lungs: Clear to Auscultation, Normal Respiratory Effort Cardiovascular: Regular Rate, Regular Rhythm GI/Abdominal Exam: Soft, Non-Tender, No Distention Extremities: Non-Tender, No Pedal Edema - Patient Data Lab Results Last 24 hrs: Laboratory Results - last 24 hr 12/12/20 12/13/20 12/13/20 Range/Units 06:05 05:48 05:48 WBC 7.59 (4.0-11.0) K/uL RBC 3.63 L (4.30-5.90) M/uL Hgb 11.3 L (12.0-16.0) g/dL Hct 34.2 L (36.0-46.0) % MCV 94.2 (80.0-98.0) fL MCH 31.1 (27.0-32.0) pg MCHC 33.0 (31.0-37.0) g/dL RDW Std Deviation 47.5 (28.0-62.0) fl RDW Coeff of Malik 14 (11.0-15.0) % Plt Count 299 (150-400) K/uL MPV 9.90 (7.40-12.00) fL Neut % (Auto) 71.2 (48.0-80.0) % Lymph % (Auto) 21.7 (16.0-40.0) % Walton % (Auto) 7.1 (0.0-15.0) % Eos % (Auto) 0.0 (0.0-7.0) % Baso % (Auto) 0.0 (0.0-1.5) % Neut # (Auto) 5.4 (1.4-5.7) K/uL Lymph # (Auto) 1.7 (0.6-2.4) K/uL [place] # (Auto) 0.5 (0.0-0.8) K/uL Eos # (Auto) 0.0 (0.0-0.7) K/uL Baso # (Auto) 0.0 (0.0-0.1) K/uL Nucleated RBC % 0.0 /100WBC Nucleated RBCs # 0 K/uL Sodium 141 (136-145) mmol/L Potassium 4.3 (3.5-5.1) mmol/L Chloride 107 (98-107) mmol/L Carbon Dioxide 25.4 (21.0-32.0) mmol/L BUN 27 H (7.0-18.0) mg/dL Creatinine 0.8 (0.6-1.0) mg/dL Est Cr Clr Drug Dosing 55.73 mL/min Estimated GFR (MDRD) > 60.0 ml/min Glucose 126 H (74-106) mg/dL Calcium 7.8 L (8.5-10.1) mg/dL Total Bilirubin 0.4 (0.2-1.0) mg/dL AST 31 (15-37) IU/L ALT 67 H (14-63) IU/L Alkaline Phosphatase 44 L (46-116) U/L Total Protein 5.2 L (6.4-8.2) g/dL Albumin 2.5 L (3.4-5.0) g/dL Globulin 2.7 (2.6-4.0) g/dL Albumin/Globulin Ratio 0.9 (0.9-1.6) HIV 1&2 Ag/Ab, 4th Gen 0.1 (<1.0) INDEX Result Diagrams: 12/13/20 05:48 12/13/20 05:48 Walter Results Last 24 hrs: Microbiology 12/10/20 15:10 Urine Culture - Final Urine, Clean Catch MIXED SCOOBY <1000 CFU/ML Sepsis Event Note - Evaluation Sepsis Screening Result: No Definite Risk - Focused Exam Vital Signs: Vital Signs Temp Temp Pulse Resp BP BP Pulse Ox 12/13/20 08:17 36.3 C 40 L 14 135/75 94 L 12/13/20 04:00 36.8 C 40 L 18 140/82 96 12/13/20 00:10 36.1 C 44 L 14 135/83 91 L - Problem List Review Problem List Initiated/Reviewed/Updated: Yes - My Orders Last 24 Hours: My Active Orders 12/13/20 11:47 Admission Status [Patient Status] [ADT] Routine - Plan Plan:: Assessment and Plan: 1. Oral and vaginal mucosal lesions secondary to herpetic infection: - Continue IV LR's @ 125 cc/hr, IV acyclovir 2. ETHAN, resolved: 3. Past medical history of COPD and anxiety: - Continue home medications. 4. DVT prophylaxis: - Lovenox 40 mg subcut qd. discharge pending improved oral intake. likely in next 1-2 days
[2020-12-13] MEDS: Docusate Sodium 100 MG Cap PO PRN (12:59)
--- NOTE | 2020-12-14 12:03 | PCM.DCSUM1 ---
Discharge Summary - Discharge Data Discharge Date: 12/14/20 Discharge Disposition: Home, Self-Care 01 Condition: Stable - Referral to Home Health Primary Care Physician: Lizzie Cui NP - Patient Summary/Data Consults: Consultations 12/11/20 10:34 Consult to Physician [CONS] Urgent 12/11/20 18:33 Consult to Physician [CONS] Routine Hospital Course: 60-year-old female admited for severe HSV infection. She presented with painful mouth sores as well as painful vaginal sores.Patient reports that approximately 3-4 days ago she was started on nitrofurantoin to treat a UTI. She then shortly developed a rash on her left thigh that resolved within 1 day. She was advised by her PCP to discontinue nitrofurantoin and was then started on bactrim. After starting bactrim she developed painful vaginal lesions that hurt when she urinates. She then developed painful mouth sores and has been unable to eat or drink. In the ER, WBC 14,000, creatinine 1.2, COVID-19 test negative. Patient was given IV morphine, zofran, solumedrol 125 mg and given 2 L IV NS bolus. Patient admitted for further evaluation and treatment including pain control. She was started on acyclovir. She tested negative for HSV [address] Self was consulted and felt it clinically fit with HSV despite negative testing. He recommended continued treatment with acyclovir. Eventual patient's pain improved and she was tolerating an oral diet. She is requesting discharge home. She was instructed to avoid nitrofurantoin and bactrim as her sores could also have been a drug reaction. She was discharged home to follow up with her PCP at [facility]. - Discharge Plan Prescriptions/Med Rec: Acyclovir 400 mg PO TID #21 tablet Home Medications: Home Meds ALPRAZolam [Alprazolam] 0.5 mg PO DAILY 11/03/19 [History] busPIRone [Buspar] 15 mg PO BID 11/03/19 [History] Fluticasone Propion/Salmeterol [Advair 250-50 Diskus] 1 each IH DAILY 30 Days #1 blst.w.dev 07/01/20 [Rx] Acyclovir 400 mg PO TID #21 tablet 12/13/20 [Rx] Patient Handouts: Cold Sore, [id number], Acyclovir tablets or capsules, Herpes Simplex Test Referrals: Lizzie Cui SENIOR QA TESTER [Primary Care Provider] - 12/21/20 8:45 am - Discharge Summary/Plan Comment DC Time >30 min.: No - Patient Data Vitals - Most Recent: Last Vital Signs Temp 36.2 C 12/13/20 16:05 Pulse 48 L 12/13/20 16:05 Resp 12 12/13/20 16:05 BP 108/57 L 12/13/20 16:05 Pulse Ox 94 L 12/13/20 16:05 Weight - Most Recent: 58.196 kg I&O - Last 24 hours: Intake & Output 12/13/20 12/14/20 12/14/20 22:59 06:59 14:59 Intake Total 3293 Output Total 500 Balance 2793 Med Orders - Current: Current Medications Discontinued Medications Acetaminophen (Tylenol) 650 mg PO Q4H PRN PRN Reason: Pain (Mild 1-3)/fever Last Admin: 12/13/20 12:47 Dose: 650 mg Documented by: Alprazolam (Xanax) 0.5 mg PO DAILY PRN PRN Reason: Anxiety Last Admin: 12/12/20 16:30 Dose: 0.5 mg Documented by: Benzocaine (Hurricaine One 20%) 2 each MUCMEM Q2H PRN PRN Reason: Pain Last Admin: 12/11/20 14:26 Dose: 2 each Documented by: Buspirone HCl (Buspar) 15 mg PO BID SARAH Last Admin: 12/13/20 08:12 Dose: 15 mg Documented by: Diphenhydr/Magaldrate/Simeth/Lidoca (First-Mouthwash Blm) 10 ml PO ASDIRECTED PRN PRN Reason: Pain Diphenhydr/Magaldrate/Simeth/Lidoca (First-Mouthwash Blm) 10 ml PO Q6H PRN PRN Reason: Pain Last Admin: 12/13/20 10:35 Dose: 10 ml Documented by: Diphenhydr/Magaldrate/Simeth/Lidoca (First-Mouthwash Blm) 10 ml PO Q6H PRN PRN Reason: oral mucositis Last Admin: 12/10/20 15:01 Dose: 10 ml Documented by: Docusate Sodium (Colace) 100 mg PO BID PRN PRN Reason: Constipation Last Admin: 12/13/20 12:59 Dose: 100 mg Documented by: Enoxaparin Sodium (Lovenox) 40 mg SUBCUT Q24H [facility] Last Admin: 12/13/20 08:13 Dose: 40 mg Documented by: Ceftriaxone Sodium 1 gm/ (Sodium Chloride) 50 mls @ 100 mls/hr IV Q24H [facility] Last Admin: 12/10/20 19:02 Dose: Not Given Documented by: Ceftriaxone Sodium/Dextrose (Rocephin In Dextrose,Iso-Osm 1 Gm/50 Ml) 50 mls @ 100 mls/hr IV Q24H [facility] Last Admin: 12/11/20 18:30 Dose: 100 mls/hr Documented by: Pantoprazole Sodium 40 mg/ (Sodium Chloride) 10 mls @ 300 mls/hr IV DAILY [facility] Last Admin: 12/13/20 08:13 Dose: 300 mls/hr Documented by: Acyclovir 450 mg/ Sodium (Chloride) 109 mls @ 100 mls/hr IV Q12H [facility] Last Admin: 12/12/20 14:02 Dose: Not Given Documented by: Acyclovir 450 mg/ Sodium (Chloride) 109 mls @ 109 mls/hr IV Q12H [facility] Last Admin: 12/13/20 12:50 Dose: 109 mls/hr Documented by: Sodium Chloride (Normal Saline) 1,000 mls @ 999 mls/hr IV .Bolus ONE Stop: 12/10/20 05:08 Last Admin: 12/10/20 04:18 Dose: 999 mls/hr Documented by: Sodium Chloride (Normal Saline) 1,000 mls @ 999 mls/hr IV NOW STA Stop: 12/10/20 07:30 Last Admin: 12/10/20 06:35 Dose: 999 mls/hr Documented by: Lactated Ringer's (Ringers, Lactated) 1,000 mls @ 75 mls/hr IV ASDIRECTED [facility] Stop: 12/10/20 20:49 Last Infusion: 12/10/20 12:50 Dose: 200 mls/hr Documented by: Lactated Ringer's (Ringers, Lactated) 1,000 mls @ 125 mls/hr IV Q5H [facility] Last Admin: 12/13/20 15:56 Dose: Not Given Documented by: Acyclovir 300 mg/ Sodium (Chloride) 106 mls @ 100 mls/hr IV Q12H [facility] Last Admin: 12/12/20 00:16 Dose: 100 mls/hr Documented by: Ibuprofen (Motrin) 400 mg PO Q6H PRN PRN Reason: Pain Ibuprofen (Motrin) 400 mg PO Q6H PRN PRN Reason: Pain Last Admin: 12/13/20 14:25 Dose: 400 mg Documented by: Lidocaine HCl (Xylocaine 2% Viscous) 15 ml PO Q2H PRN PRN Reason: Pain Stop: 12/10/20 17:46 Lidocaine HCl (Xylocaine 2% Viscous) 15 ml PO Q2H PRN PRN Reason: Pain Last Admin: 12/11/20 14:26 Dose: 15 ml Documented by: Lidocaine HCl (Lidocaine 5%) 1 gm TOP ONETIME ONE Stop: 12/11/20 18:04 Last Admin: 12/11/20 18:20 Dose: Not Given Documented by: Lidocaine HCl (Lidocaine 5%) 0 gm TOP BID PRN PRN Reason: Other Methylprednisolone Sodium Succinate (Solu-Medrol) 40 mg IV Q12H [facility] Last Admin: 12/13/20 10:07 Dose: 40 mg Documented by: Methylprednisolone Sodium Succinate (Solu-Medrol) 125 mg IVPUSH ONETIME ONE Stop: 12/10/20 04:57 Last Admin: 12/10/20 05:05 Dose: 125 mg Documented by: Methylprednisolone Sodium Succinate (Solu-Medrol) 40 mg IV Q8H [facility] Last Admin: 12/12/20 03:14 Dose: 40 mg Documented by: Morphine Sulfate (Morphine) 1 mg IVPUSH ONETIME ONE Stop: 12/11/20 18:33 Last Admin: 12/12/20 00:08 Dose: Not Given Documented by: Morphine Sulfate (Morphine) 1 mg IVPUSH ONETIME ONE Stop: 12/11/20 23:35 Last Admin: 12/12/20 00:07 Dose: 1 mg Documented by: Morphine Sulfate (Morphine) 4 mg IVPUSH ONETIME ONE Stop: 12/10/20 04:09 Last Admin: 12/10/20 04:18 Dose: 4 mg Documented by: Morphine Sulfate (Morphine) 2 mg IVPUSH Q4H PRN PRN Reason: Pain (moderate 4-6) Last Admin: 12/10/20 19:11 Dose: 2 mg Documented by: Ondansetron HCl (Zofran) 4 mg IVPUSH ONETIME ONE Stop: 12/10/20 04:09 Last Admin: 12/10/20 04:18 Dose: 4 mg Documented by: Ondansetron HCl (Zofran) 4 mg IVPUSH Q4H PRN PRN Reason: Nausea Sodium Chloride (Saline Flush) 10 ml FLUSH ASDIRECTED PRN PRN Reason: Keep Vein Open Last Admin: 12/10/20 04:19 Dose: 10 ml Documented by: Sodium Chloride (Saline Flush) 2.5 ml FLUSH ASDIRECTED PRN PRN Reason: Keep Vein Open Last Admin: 12/13/20 10:08 Dose: 2.5 ml Documented by:
== END 2020-12-13 17:50 | disposition home or self-care (01) | DRG 531 ==
LOC: MW.ED 03:24 → MW.MS 05:19 → OBSVTOIN 12-13 11:47
PROVIDERS: ADMIT Student in an Organized Health Care Education/Training Program; ATTEND Student in an Organized Health Care Education/Training Program
DX: A60.04 Herpesviral vulvovaginitis (principal); Z20.822 Contact with and (suspected) exposure to COVID-19; J44.9 Chronic obstructive pulmonary disease, unspecified; Z87.440 Personal history of urinary (tract) infections; Z90.710 Acquired absence of both cervix and uterus; Z88.2 Allergy status to sulfonamides; Z88.1 Allergy status to other antibiotic agents; N17.9 Acute kidney failure, unspecified; F41.9 Anxiety disorder, unspecified; K12.0 Recurrent oral aphthae; T37.8X5A Adverse effect of other specified systemic anti-infectives and antiparasitics, initial encounter; T36.8X5A Adverse effect of other systemic antibiotics, initial encounter
CPT/HCPCS: 36415; 80053; 81001; 85025; 86592; 87086; 87389; 87480; 87510; 87529; 87651-QW; 87660; 99284; A9270-GY; C9113; J0133; J0696; J1650; J2270; J2405; J2920; J2930; J7030; J7120; U0002

== ENCOUNTER 2020-12-15 11:34 | Emergency (ER) | payer BC ==
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
[2020-12-15 12:50] LABS: BLOOD UREA NITROGEN,BUN 13 mg/dL (7.0-18.0); CARBON DIOXIDE,CO2 28.3 mmol/L (21.0-32.0); CHLORIDE,CL 103 mmol/L (98-107); GLUCOSE RANDOM 90 mg/dL (74-106); POTASSIUM,K 3.8 mmol/L (3.5-5.1); SODIUM,NA 140 mmol/L (136-145)
== END 2020-12-15 13:14 | disposition home or self-care (01) ==
LOC: MW.ED 11:34
DX: L51.1 Stevens-Johnson syndrome (principal); J44.9 Chronic obstructive pulmonary disease, unspecified; Z88.2 Allergy status to sulfonamides; Z88.1 Allergy status to other antibiotic agents; Z87.891 Personal history of nicotine dependence
CPT/HCPCS: 36415; 80048; 99283

== ENCOUNTER 2022-06-27 14:58 | Emergency (ER) | payer OTHER, BC | END 2022-06-27 16:50 | disposition home or self-care (01) | LOC: MW.ED 14:58 | DX: S80.12XA Contusion of left lower leg, initial encounter (principal); S80.11XA Contusion of right lower leg, initial encounter; S20.211A Contusion of right front wall of thorax, initial encounter; Z88.2 Allergy status to sulfonamides; Z88.8 Allergy status to other drugs, medicaments and biological substances; V89.2XXA Person injured in unspecified motor-vehicle accident, traffic, initial encounter; Y92.410 Unspecified street and highway as the place of occurrence of the external cause | CPT/HCPCS: 71045; 71045-26; 73590-26-LT; 73590-26-RT; 73590-LT; 73590-RT; 99284 ==